=== PATIENT | male | born 1940 | race Caucasian/White ===

== ENCOUNTER 2018-07-21 06:35 | Observation (INO) ==
[~2018-07-21 06:35] MED LIST: CLINDAMYCIN 600 MG/54 ML BAG IV SCH; LR 15ML/HR IV SCH
[2018-07-21] MEDS ORDERED: BACITRACIN INJ 50,000 UNIT VIAL ONE (07:07)
[2018-07-21] MEDS ORDERED: LIDOCAINE HCL 1% 20 ML VIAL ONE (07:07)
[2018-07-21] MEDS ORDERED: BUPIVACAINE 0.25% 30 ML VIAL ONE (07:07)
[2018-07-21] MEDS ORDERED: fentaNYL citrate 100 MCG/2 ML VIAL ONE (07:49)
[2018-07-21] MEDS ORDERED: MIDAZOLAM HCL 5 MG/ML 1 ML VIAL ONE (07:50)
--- NOTE | 2018-07-21 07:57 | History & Physical Bridge Note ---
Date of Service July 21, 2018 History & Physical Bridge Note I have examined the patient, reviewed the History & Physical and in the interval since the performance of the History & Physical I have noted the following changes of clinical significance: no changes noted
--- NOTE | 2018-07-21 07:58 | Pre Anesthesia Assessment ---
Date of Service July 21, 2018 Pre Sedation Assessment Vital Signs Temp Pulse Resp Pulse Ox 07/21/18 07:42 36.6 C 45 L 16 98 Cardiovascular + bradycardic Respiratory normal respiratory effort, lungs clear to auscultation Pre-Sedation Airway Assessment Smoking Status: Never smoker Short, Thick Neck: No Thyromental Distance: > or= 3.5 Finger Breadths Oral Cavity: + WNL Mallampati Class: III ASA: ASA3 NPO Status Date of Last Intake of Fluids: 07/20/18 Time of Last Intake of Fluids: 19:00 Date of Last Intake of Solid Food: 07/20/18 Time of Last Intake of Solid Foods: 19:00 Procedure Planning Contraindications for Sedation: none Current Medications Reviewed: Yes Notes The planned sedation has been discussed with the patient. Informed Consent was obtained. I have identified the patient, determined the appropriateness of sedation and have assessed the patient immediately prior to the procedure. All medicine(s) and interventions are by my order.
[2018-07-21] MEDS ORDERED: ACETAMINOPHEN 325 MG TAB PO PRN (09:16)
[2018-07-21] MEDS ORDERED: ACETAMINOPHEN W/CODEINE #3 1 TAB PO PRN (09:16)
--- NOTE | 2018-07-21 09:16 | Post Anesthesia Assessment ---
Date of Service July 21, 2018 Post Sedation Assessment Vital Signs Temp Pulse Resp Pulse Ox 07/21/18 07:42 36.6 C 45 L 16 98 Recovery Score Activity: Moves 4 extremities Respiration: Deep Breath/Cough Circulation: +/-20% PreAnes Value Consciousness: Fully Awake Oxygen Saturation: > 92% On Room Air Discharge Sedation Level of Care: Fast Track Phase II Post Sedation Plan On clinical assessment, the patient appears to have tolerated the sedation without complications. Patient is recovering as anticipated. Patient will continue to be monitored by nursing and may be discharged when sedation discharge criteria are met per below protocol. Upon Completions of procedure and additional 15 minutes continue every 5 minute vital signs and the P.A.R. score; then discharge to a Phase I or Fast Track to Phase II per the following guidelines: * Discharge Patient to appropriate Phase II area if PAR is 8 or greater or return to pre- procedure baseline. The post - procedure orders will be as directed. * If PAR score is less than 8 or not return to pre-procedure baseline then patient will follow Phase I monitoring till PAR is reached for Phase II. The Phase I may be done in procedure room or may call to secure a Phase I area. * If naloxone or flumazenil are used for reversal, hold in Phase I for continued monitoring from when last reversal dose was given for a minimum of 60 minutes or longer pending the nurse and/or physician discretion of patient condition before discharge to Phase II. Please call the Sedation Physician to re-evaluate and complete post-note for discharge to Phase II area. Do NOT discharge from procedure sedation or Phase 1 until post- sedation evaluation note is complete by procedure /sedation MD Sedation Discharge Instructions to be given to the patient at discharge to home.
--- NOTE | 2018-07-21 09:16 | Operative Report ---
Post Operative Report Pre & Post Diagnosis AF with SVR and SND Operation Date: 07/21/18 08:00 <No data on this case meets the specified criteria> Procedure Operation Date: 07/21/18 08:00 Actual Procedures p Pacer with Ventricular Lead - Quin Yanes DO Surgeon Quin Yanes, Broom Stitcher none Estimated Blood Loss 10 Findings Consistent with Post-Op Diagnosis Specimens none Description of Procedure see official report I attest to the content of the Intraoperative Record and any orders documented therein. Any exceptions are noted below.
--- NOTE | 2018-07-21 09:28 | Discharge Summary ---
Date of Service July 21, 2018 Admission HPI pt admitted for elective ppm due to AF with SVR and fatigue and SOB Admission Exam Per Admitting Provider aaox3, NAD NC/AT, EOMI Supple No JVD irregular irregular S1/S2, + murmur CTA b/l no w/r/r soft nt/nd no LE edema b/l skin intact no focal deficits l Principal Diagnosis Principal Diagnosis SND and AF with SVR Discharge Exam aaox3, NAD NC/AT, EOMI Supple No JVD Nrl S1/S2, No murmur CTA b/l no w/r/r soft nt/nd no LE edema b/l skin intact no focal deficits left pectoral incision intact, no hematoma mild ecchymosis Discharge Data Allergies Allergy/AdvReac Type Severity Reaction Status Date / Time Penicillins Allergy Unknown RASH Unverified 10/15/17 14:42 Procedures Performed Operation Date: 07/21/18 08:00 Actual Procedures p Pacer with Ventricular Lead - Quin Yanes DO Ordered Studies 07/21/18 06:45 EP Lab Images for PACS ONCE Hospital Course (1) Sinus node dysfunction: Total Time Total Time Spent Total Time Spent (In Minutes): 30 Total Time Includes: Examination of the Patient, Discharge Planning, Medication Reconciliation and Other Discharge Plan Discharge Items Patient Disposition: Home - Self-Care Reason For Visit: PACEMAKER INSERTION Discharge Diagnosis: snd and AF with SVR s/p ppm Condition: Good Discharge Goals: Improve function Activity: As commented below Activity Comment: do not lift the left elbow over the left shoulder Lifting: No more than 10 pounds Lifting Comment: do not lift more than 10 pounds with the left arm for 2 weeks Bathing: May shower/bathe in 3 days Driving/Machine Use: Resume 1 day after discharge Non-emergency contact: Therapist Respiratory Call non-emergency contact if: you have any medication questions Follow-up/Referrals: William Arreola [Primary Care Provider] - Diet: Heart Healthy Add Provider Instructions: device and wound check [facility] at [facility] Prescriptions: Continued Acetaminophen Tab (TYLENOL) 325 MG tablet 325 mg PO Qty: 0 RF: 0 Amlodipine (Norvasc) 2.5 MG tablet 2.5 mg PO DAILY Qty: 0 RF: 0 GARLIC 10 MG capsule Qty: 0 RF: 0 Multivitamin tablet 1 tab PO DAILY Qty: 0 RF: 0 Potassium Chloride (Klor-Con Ext Rel) 8 MEQ CYGGP-DXZ-CAC 8 meq PO DAILY Qty: 0 RF: 0 Triamterene/Hctz (Dyazide 37.5MG/25MG) capsule 1 cap PO DAILY 30 Days Qty: 30 RF: 3 WARFARIN SODIUM (COUMADIN) 5 MG tablet 1 tab PO DAILY 90 Days Qty: 90 RF: 1 Stand-Alone Forms: [facility] Discharge Orders: Discharge Order (Routine); Ordered 07/22/18 Ordered By: Quin Yanes Admission Data Admit Date/Time: 07/21/18 09:16 Attending Provider: Quin Yanes Admit Provider: Quin Yanes Primary Care Provider: William Arreola Service: Telemetry
--- NOTE | 2018-07-21 14:40 | Operative Report ---
DATE OF OPERATION: 07/21/2018 PREOPERATIVE DIAGNOSES: Sinus node dysfunction and permanent 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 with slow ventricular response. POSTOPERATIVE DIAGNOSES: Sinus node dysfunction and permanent 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 with slow ventricular response. PROCEDURE: Single chamber rate responsive permanent pacemaker under fluoroscopic guidance. SURGEON: Quin Yanes DO. KETTLE OPERATOR HEAD: None. ANESTHESIA: Monitored conscious sedation administered under my supervision by Zach Whitfield. Start time 8:21, end time 8:32. Total of 3 mg of Versed and 75 mcg fentanyl. IV FLUIDS: 100 mL. ANTIBIOTICS: 600 mg of clindamycin. BLOOD LOSS: Less than 10 mL. URINE OUTPUT: Not applicable. SPECIMENS: None. FINDINGS: See below. DRAINS: None. INDICATIONS: This is a 77-year-old gentleman with past medical history for permanent 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 since 2017. CHADS2-VASc score of 3. He is on Coumadin, but no AV karla blockers, hypertension, chronic kidney disease stage III, hyperlipidemia, enlarged aorta, aortic valve sclerosis, obstructive sleep apnea on CPAP. On most recent Zio patch, he was found to have permanent 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 with slow ventricular response and sinus node dysfunction, so he is recommended a single chamber pacemaker. CONSENT: Consent was obtained prior to the patient going into Electrophysiology Lab. The patient was informed of the risks, benefits and alternatives of the procedure. Risks include but not limited to sudden cardiac , cardiac arrhythmias, cerebrovascular accident, myocardial infarction, injury to the blood vessels, chamber of the heart, lung, bleeding and infection. The patient understood these risks and agreed to the procedure as planned. Informed consent was obtained. DESCRIPTION OF THE PROCEDURE: The patient was brought into the Electrophysiology Lab in fasting state. He was connected to continuous shelter monitor. A timeout was performed to ensure the patient's identity and procedure correctly. The patient was prepped and draped over the left infraclavicular space in normal surgical standard fashion. Moderate conscious sedation was given throughout the procedure for the patient's comfort level. [place] precautions maintained throughout the procedure. A 10 mL of 1% lidocaine/bupivacaine mixture were given in the left deltopectoral groove. Incision was made in left deltopectoral groove. Blunt dissection was performed down to identify the cephalic vein. Cephalic vein was identified and isolated using 0 silk ties. The vein was nicked with an 11 blade and a guidewire was inserted without any resistance. The 8-[place] sheath was inserted over the guidewire without any resistance. Guidewire and dilator removed. The right ventricular pacing lead was then advanced into right ventricle and positioned in ventricular apex under fluoroscopic guidance. The initial spots before we screwed in did show some ventricular ectopies, so we repositioned it. There was adequate pacing and sensing thresholds and no diaphragmatic stimulation at high output pacing. The 8-[place] sheath was peeled away and lead was fixated to pectoralis muscle using 0 silk suture. A pacemaker pocket was created using blunt dissection over the pectoralis muscle within the pectoralis fascia. Pocket was flushed with copious amounts of bacitracin saline wash and inspected for hemostasis. Pulse generator was placed in the pocket, making sure that the leads were lying flat beneath the device. A stay stitch using 0 silk suture was used to secure the device to the pectoralis muscle. The incision was then closed in a 3-layer fashion using 2-0 Vicryl interrupted suture followed by 3-0 Vicryl interrupted suture followed by 4-0 Monocryl running stitch and Dermabond was applied. EQUIPMENT: 1. Pulse generator is a Medtronic Northwest XT SR MRI SureScan [id number], serial number [id number]. 2. Right ventricular lead, Medtronic 5076-58 cm, serial number [id number]. INTRAOPERATIVE TESTING: Right ventricular lead R waves 4.2 millivolts, impedance 730 ohms, threshold 0.3 volts at 0.3 milliamps. FINAL MEASUREMENTS THROUGH THE DEVICE: Right ventricular lead R waves 3.3 millivolts, impedance 589 ohms, threshold 0.5 volts at 0.4 milliseconds. FINAL PARAMETERS: VVIR 60/130. Right ventricular amplitude 3.5 volts, pulse width 0.4 milliseconds, sensitivity 0.3 millivolts. IMPRESSION: Successful implantation of single chamber rate responsive permanent pacemaker under fluoroscopic guidance secondary to sinus node dysfunction and permanent 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 with slow ventricular response. PLAN: Monitor the patient overnight, 12-lead ECG, chest x-ray. He is not allowed to lift the left elbow over left shoulder for 1 month. He cannot lift more than 10 pounds with the left arm for 2 weeks. He can shower in 2 days, let water run over the incision, do not scrub it. He should follow up in our [facility] office for device and wound check on 07/31/2018 and he can continue his current home medications. I attest to the content of the Intraoperative Record and any orders documented therein. Any exception s are noted below.
[2018-07-21] MEDS ORDERED: WARFARIN SOD 2.5 MG TAB PO SCH (16:00)
[2018-07-22 03:21] VITALS: BP 149/81; PULSE 61; TEMP 98.1; O2SAT 97
--- NOTE | 2018-07-22 07:25 | XRay Report ---
TWO VIEW CHEST CLINICAL HISTORY: Status post pacemaker implantation. FINDINGS: PA and lateral chest radiographs are obtained. No prior studies are available for compariso n at the time of dictation. A single lead cardiac pacemaker has been placed. The lead projects over t he ventricles. The heart is enlarged and there is atherosclerotic calcification of the thoracic aorta . The pulmonary vasculature is noncongested. Enlargement of the central pulmonary arteries suggests p ulmonary artery hypertension. Nonspecific interstitial thickening is likely chronic. There is bibasil ar atelectasis. No airspace consolidation or pleural effusion is identified. There is no pneumothorax . The skeletal structures are osteopenic. Degenerative change is noted in the shoulders and thoracic spine. The bony thorax appears intact. IMPRESSION: 1. A single lead cardiac pacemaker has been placed as above. 2. No pneumothorax is seen post procedure. 3. Cardiomegaly without radiographic evidence of congestive failure. Electronically signed by: Navin Castillo M.D. 07/22/2018 7:24 AM
[2018-07-22] MEDS ORDERED: TRIAMTERENE/HCTZ 37.5/25MG CAP PO SCH (09:00)
[2018-07-22] MEDS ORDERED: MULTIVITAMIN TAB PO SCH (09:00)
[2018-07-22] MEDS ORDERED: AMLODIPINE BESYLATE 5 MG TAB PO SCH (09:00)
[2018-07-24] MEDS ORDERED: WARFARIN SOD 5 MG TAB PO SCH (16:00)
== END 2018-07-22 09:20 | disposition home or self-care (01) ==
LOC: 2E 06:35 → ASU 06:35

== ENCOUNTER 2019-12-21 08:02 | Observation (INO) ==
--- NOTE | 2019-11-26 16:00 | PAT Medication Instructions ---
Medication Instructions Date of Service November 26, 2019 Home Medications acetaminophen [Tylenol Extra Strength] 500 mg PO 4XWK PRN amlodipine 10 mg PO QAM chlorthalidone 25 mg PO QAM losartan 25 mg PO QAM multivitamin 1 tab PO QAM potassium chloride 8 meq PO QAM warfarin 2.5 mg PO UD mupirocin 1 applic TOPICAL BID vitamins A,C,O-ahsr-omcjhr [PreserVision AREDS] 1 tab PO DAILY ASK your prescriber and surgeon warfarin 2.5 mg PO UD STOP taking 2 weeks before surgery (or as soon as possible if surgery is within 2 weeks) vitamins A,C,P-gpda-cfypfe [PreserVision AREDS] 1 tab PO DAILY STOP taking 24 hours before surgery mupirocin 1 applic TOPICAL BID DO NOT take the morning of surgery chlorthalidone 25 mg PO QAM losartan 25 mg PO QAM multivitamin 1 tab PO QAM potassium chloride 8 meq PO QAM Take morning of surgery With a small sip of water, OTHERWISE NOTHING TO EAT OR DRINK AFTER MIDNIGHT: acetaminophen [Tylenol Extra Strength] 500 mg PO 4XWK PRN (okay to take up to 4 hours prior to surgery if needed) amlodipine 10 mg PO QAM Take evening before surgery acetaminophen [Tylenol Extra Strength] 500 mg PO 4XWK PRN (if needed) Other Notes If you have any questions please call us at [phone] or [phone] or [phone] or [phone]
--- NOTE | 2019-11-30 08:54 | Anesthesiology Consultation ---
Date of Service November 30, 2019 Assessment & Plan (1) Encounter for pre-operative examination: Per PAT assessment on 11/29: Travel screen- Travel to [facility] (for camping/no contact with others). No known COVID-19 positive contacts. No current COVID-19 related symptoms. COVID testing done before back injection one month ago which was negative per patient. Per patient, surgeon arranging preop COVID testing. Awaiting results. - Cardiology office visit: 08/30/19: "Patient is doing well and will continue his current medications." - Check coags AM DOS Chart Review Chart Review: Acceptable Risk for Surgery (pending surgeon-ordered PCP clearance (Dr. Arreola/[facility])) and Patient seen in Pre Admission Testing Teaching & Discussion Pre-Anesthesia Teaching/Discussion Notes: Instructed NPO after midnight before surgery,except medications with 15 cc of water. Medication instructions provided according to the PAT guidelines. History Surgery Operation Date: 12/21/19 07:00 Proposed Procedures p Left Total Knee Arthroplasty - Greg Lester MD Height/Weight Height: 5 ft 8 in Weight: 92.2 kg Allergies Allergy/AdvReac Type Severity Reaction Status Date / Time Penicillins Allergy Unknown RASH Verified 11/23/19 11:01 Medications Home Medications Medication Instructions Recorded Confirmed Last Taken acetaminophen [Tylenol Extra 500 mg PO 4XWK PRN 04/23/19 11/23/19 10/18/19 07:44 Strength] amlodipine 10 mg PO QAM 04/23/19 11/23/19 10/18/19 07:44 chlorthalidone 25 mg PO QAM 04/23/19 11/23/19 10/18/19 07:44 losartan 25 mg PO QAM 04/23/19 11/23/19 10/18/19 07:44 multivitamin 1 tab PO QAM 04/23/19 11/23/19 10/18/19 07:44 potassium chloride 8 meq PO QAM 04/23/19 11/23/19 10/18/19 07:44 warfarin 2.5 mg PO UD 04/23/19 11/23/19 05/16/19 mupirocin 1 applic TOPICAL BID 11/23/19 11/23/19 Unknown vitamins A,C,K-igih-ffdtoo 1 tab PO DAILY 11/23/19 11/23/19 Unknown [PreserVision AREDS] Past Medical History Medical History (Updated 11/30/19 @ 09:10 by Lisa Abad) Atrial fibrillation paroxysmal Borderline high cholesterol Chronic back pain CKD (chronic kidney disease) stage III Hypertension Lumbar spinal stenosis Osteoarthritis Pacemaker Implanted 07/2018 ([place]) for tachy-pat syndrome/sinus node dysfunction, Medtronic, last check 09/2019 ([facility]) Sleep apnea CPAP Exercise / Class Metabolic Activity III < 4 Walking/Shop/Light housework Past Family History Family History Brother Throat cancer Family history of diabetes mellitus Sister Family history of diabetes mellitus Other No family history of adverse response to anesthesia Past Surgical History Surgical History History of colonoscopy History of prostatectomy DUE TO ENLARGEMENT S/P cardiac pacemaker procedure [facility] 2018 S/P epidural steroid injection caudal S/P repair of hydrocele Past Anesthesia History No Hx of Anesthesia Complications and No Family Hx of Anesthesia Complications History of PONV No Hx of PONV and No Hx of Motion Sickness Social History Smoking Status: Former smoker tobacco type: cigarettes Do You Dip or Chew Tobacco: No Smoking End Date: Light use as teenager Hx Alcohol Use: Yes Alcohol type: beer alcohol intake frequency: a few times a week Hx Substance Use: No substance use type: does not use Review of Systems Patient denies chest pain, shortness of breath, fever, chills, cough, wheezing, palpitations. Physical Exam Vital Signs VITALS BP 150/68 P 60 TEMP 98.4 SP02 98%RA RESP 18 PHYSICAL Full neck and c-spine range of motion. Full TMJ range of motion. TMD 2.5 finger breaths Mallampati Score 3 Dentition: missing teeth including upper side teeth Lungs: clear throughout to auscultation Cardiac: regular rate and rhythm, no murmurs noted Spine: normal Carotid arteries: negative bruit Extremities: no edema Testing Laboratory Results 11/30/19 09:10 11/30/19 09:10 PT 18.7 Seconds (9.0-12.0) H 11/30/19 09:10 INR 1.8 (0.9-1.1) H 11/30/19 09:10 APTT 39.3 Seconds (21.0-31.0) H 11/30/19 09:10 Blood Type O Positive 11/30/19 09:10 Antibody Screen NEGATIVE 11/30/19 09:10 Electrocardiogram Date: 11/30/19 V-paced rhythm at 62bpm. Chest X-Ray Date: 06/09/19 Findings: + NAD Echocardiogram Date: 07/15/19 EF 58%. No RWMA. Moderate LAE. PASP 25-30mmhg. Moderate aortic sclerosis. Other Testing Pacer check: 09/24/19: Medtronic. No alerts. RV paced presenting rhythm. RV 98%. More VVIR. 13.6 years battery longevity. "Normal dual chamber pacemaker function."
[2019-11-30 10:17] LABS: Basophils # (auto) 0.02 K/uL (0-0.2); Basophils % (auto) 0.3 %; Eosinophils # (auto) 0.07 K/uL (0-0.5); Eosinophils % (auto) 0.9 %; Hematocrit (blood only) 40.2 % (42-52); Hemoglobin 13.7 g/dL (14.0-18.0); Immature Granulocytes # (auto) 0.02 K/uL (0.00-0.02); Immature Granulocytes % (auto) 0.3 %; Lymphocytes # (auto) 1.54 K/uL (1.2-3.4); Lymphocytes % (auto) 19.3 %; Mean Corpuscular Hemoglobin 30.6 pg (25-34); Mean Corpuscular Hgb Conc 34.1 g/dL (32-36); Mean Corpuscular Volume 89.9 fL (80-100); Mean Platelet Volume 10.6 fL (7.4-10.4); Monocytes # (auto) 0.94 K/uL (0.11-0.59); Monocytes % (auto) 11.8 %; Neutrophils # (auto) 5.39 K/uL (1.4-6.5); Neutrophils % (auto) 67.4 %; Platelet Count 236 K/uL (130-400); RDW Coefficient of Variation 13.7 % (11.5-14.5); Red Blood Count 4.47 M/uL (4.7-6.1); White Blood Count 7.98 K/uL (4.8-10.8)
[2019-11-30 10:26] LABS: BUN Creatinine Ratio 20.2 (10-20); Calcium 9.1 mg/dl (8.5-10.1); Creatinine Clr Calc Pharmacy 45.8 ml/min; Est GFR (African American) 53.2; Est GFR (Non-African American) 45.9; Potassium 3.5 mmol/L (3.5-5.1)
[2019-11-30 10:37] LABS: INR 1.8 (0.9-1.1); Partial Thromboplastin Ratio 1.4; Partial Thromboplastin Time 39.3 Seconds (21.0-31.0); Prothrombin Time 18.7 Seconds (9.0-12.0)
--- NOTE | 2019-11-30 13:40 | Electrocardiogram Report ---
Test Reason : Blood Pressure : / mmHG Vent. Rate : 062 BPM Atrial Rate : 063 BPM P-R Int : 000 ms QRS Dur : 152 ms QT Int : 458 ms P-R-T Axes : 000 -70 076 degrees QTc Int : 464 ms Ventricular-paced rhythm Abnormal ECG When compared with ECG of 21-JUL-2018 09:47, Vent. rate has increased BY 2 BPM Confirmed by George Tellez ([id number]) on 11/30/2019 1:40:19 PM Referred By: Greg Lester Confirmed By:George Tellez
[~2019-12-21 08:02] MED LIST changes: +*ANCEF*ALLERGY NOTED TO ORDERED MEDICATION SCH; +ACETAMINOPHEN 500 MG TAB PO SCH; +BUPIVACAINE 0.25% 30 ML VIAL ONE; +BUPIVACAINE 0.5 % 5 MG/1 ML PF 10ML VIAL ONE; +CEFAZOLIN 2000MG 2,000 MG/15 ML SYR IV SCH; -CLINDAMYCIN 600 MG/54 ML BAG IV SCH; +CeleBREX 200 MG CAP PO SCH; +GABAPENTIN 300 MG CAP PO SCH; -LR 15ML/HR IV SCH; +LR 500ML BOLUS, THEN 15ML/HR IV SCH; +LR 60ML/HR IV SCH; +OXYCODONE HCL 10 MG TABCR (OXYCONTIN) PO SCH; +ROPIVACAINE 0.5% HCL/PF 150 MG, BUPIVACAINE 0.5% MPF 30 ML, EPINEPHrine 0.15 MG, Ketoro... INFIL SCH; +TRAMADOL HCL 50 MG TABLET PO SCH; +TRANEXAMIC ACID 1,000 MG **IV Intra-op IV SCH; +TRANEXAMIC ACID 1,000 MG **IV Pre-op IV SCH; +cloNIDine HCL 0.1 MG/24 HR TRANSDERM SYS TD SCH; +dexAMETHasone 4 MG TAB PO SCH
[2019-12-21 09:03] LABS: INR 1.2 (0.9-1.1); Partial Thromboplastin Ratio 1.1; Partial Thromboplastin Time 29.6 Seconds (21.0-31.0); Prothrombin Time 12.1 Seconds (9.0-12.0)
[2019-12-21] MEDS ORDERED: MIDAZOLAM HCL 1 MG/ML 2ML VIAL ONE (09:25)
[2019-12-21] MEDS ORDERED: ONDANSETRON INJ 2 MG/ML 2 ML VIAL IV PRN ×2 (10:40→14:57)
[2019-12-21] MEDS ORDERED: fentaNYL citrate 100 MCG/2 ML VIAL IV PRN (10:40)
[2019-12-21] MEDS ORDERED: ATROPINE SULFATE 0.1 MG/ML 10ML SYR IV PRN (10:40)
[2019-12-21] MEDS ORDERED: ePHEDrine sulfate 50 MG/ML AMP IV PRN (10:40)
--- NOTE | 2019-12-21 10:47 | History & Physical Bridge Note ---
Date of Service December 21, 2019 History & Physical Bridge Note I have examined the patient, reviewed the History & Physical and in the interval since the performance of the History & Physical I have noted the following changes of clinical significance: no changes noted
[2019-12-21] MEDS ORDERED: BACITRACIN INJ 50,000 UNIT VIAL ONE (11:04)
[2019-12-21] MEDS ORDERED: ORTHO JOINT ANESTHETIC ONE (11:04)
[2019-12-21] MEDS ORDERED: PROPOFOL IV EMULSION 10 MG/ML 20 ML VIAL IV ONE (13:26)
[2019-12-21] MEDS ORDERED: LIDOCAINE HCL 2% 2 ML VIAL/AMP(20MG/ML) INFIL ONE (13:26)
[2019-12-21] MEDS ORDERED: ePHEDrine sulfate 50 MG/ML AMP ONE (13:42)
--- NOTE | 2019-12-21 13:54 | Operative Report ---
Post Operative Report Pre & Post Diagnosis Operation Date: 12/21/19 10:00 Pre-Op Diagnosis: Left Knee Arthritis Post-Op Diagnosis: Left Knee Arthritis I identified the patient and participated in the time-out.: Yes Procedure Operation Date: 12/21/19 10:00 Actual Procedures p Left Total Knee Arthroplasty(Left) - Greg eLster MD Surgeon Greg Lester MD Fire Support Man Mirna Tatum physicians kindergarten teacher assistant. There is no qualified resident or fellow available. Rod Angel student Estimated Blood Loss 5 Findings Consistent with Post-Op Diagnosis Specimens Resected bone and soft tissue Drains None Anesthesia Type MAC Spinal Regional Complications none Disposition Accompanied Patient To Recovery: No Disposition: Recovery Room Indications Fletcher is 79. Left knee arthritis refractory to nonsurgical methods of management. He is elected to proceed with operative intervention. Description of Procedure Informed consent obtained. Patient identified. He identified the operative site as the left knee. I marked with my initials. A preop surgical timeout was performed. Preop dose of IV antibiotics given. He was taken to the operating room positioned supine on the OR table the anesthetic was administered. A tourniquet was applied to the left thigh. Bump under the left calf. Bump under the left hip. The leg was prepped and draped in usual sterile fashion. DVT prophylaxis with foot pumps. Postoperatively early mobility Coumadin and Lovenox. He is on chronic Coumadin. The exam under anesthesia revealed range of motion 0/10/1 10-115. Varus alignment. Limb exsanguinated with the Esmarch. Tourniquet inflated to 250 mmHg. A 20 cm midline incision was made followed by medial parapatellar arthrotomy. An extensile medial release was performed. Severe osteophytes were noted in the medial compartment with [id number] arthritis and a very damaged medial meniscus. There was bony eburnation and complete loss of cartilage. The central trochlea was devoid of cartilage. The lateral compartment was relatively normal with an intact meniscus. There were grade 2 and 3 changes of the patella. Retropatellar fat pad resected. Soft tissue on the anterior aspect the distal femur resected. Synovial reflection in the lateral gutter resected. Marginal osteophytes around the patella were removed along with soft tissue. The knee was able to be easily flexed and the patella everted. The cruciate ligaments were intact and they were resected. The tibia was then subluxated and the remnants of the menisci were removed. A pilot safety inspector hole was drilled into the proximal tibia between the spines and just in front of them. Intramedullary alignment madyson was inserted. 0 degree cutting blo ck. Aligned to the tibial tubercle. 10 mm off the high side and 2 mm off the medial side. Alignment checked with the extra medullary madyson and found to be appropriate. This cut was then made recut and finished off with a rongeur and and rasp. Sized to a 4. Attention turned to the femur. Venereal Disease Control Head hole just above the PCL followed by insertion of the distal femoral cutting guide 6 degrees valgus 14 mm thick cut. This cut was made and the extension gap was a symmetric 10. Epicondylar axis marked out and the distal femoral sizing guide was applied. Between 4 and a 5. It was pinned for a 5 and a 4 block was applied. The cuts were then made protecting the collateral ligaments. Box cutting guide applied and lateralized neck cut was made. Osteophytes in the back of the knee were then removed. Trial was inserted. The tibia was prepared with a size 4 tray which was lateralized and the keel was drilled and punched. Trialing with a 10 and then a 12.5 mm thick insert revealed better stability full extension with the 12 5 and trace laxity mid position MCL 1+ laxity LCL and no laxity at 90. Attention was turned to the patella which measured 26 mm in thickness. The 38 patella was selected. The guide was set to preserve 15 mm of bone. The cut was made the paddle was aligned and the lug holes were drilled. Patellar tracking was fine with no hands technique. Composite patellar thickness was 26 mm at the end of the case. The trials were removed. Canals plugged. Ortho joint mix injected and the knee was pulsatile lavage to prepare the bony surfaces. 2 bags of Simplex P cement were mixed and while in a doughy state femur tibia patella were cemented in place and held in extension until the cement hardened. Tourniquet let down at 95 minutes and meticulous hemostasis was performed with minimal bleeding. Back the knee was inspected for cement. Trialing again was performed and the 12.5 was appropriate. The final poly-was inserted. The extensor mechanism was closed with interrupted #2 FiberWire above the equator the patella and a running and interrupted #1 Vicryl below. The skin was closed in layers with 0 and 2-0 Vicryl. [place] assisted flexion with the extensor mechanism closed was approximately 115 degrees. Stable in full extension and at 90. Trace MCL at 30 and 1+ LCL at 30. Leg was cleaned with wet and dry sponges. Yinka on the skin. Xeroform 4 x 4's ABD full-length [place] wrap and knee immobilizer applied. Patient awakened from anesthesia without difficulty and taken to the recovery room in stable condition. The resected bone and soft tissue were sent for specimen. There were no complications. Counts were correct. Blood loss 5 cc. At the conclusion of the operation spoke to patient's informed of my findings and postop instructions were given. He will be rehabilitated according to the standard total knee rehab protocol. He will begin his Coumadin tonight and Lovenox for bridging tomorrow. Components inserted with a J[employer]J PFC Sigma rotating platform knee size 4 left posterior stabilized normal-sized femur and a size 4 mobile-bearing keeled tibial tray a 38 mm 3 peg oval dome patella and a size 12.5 mm thick size 4 polyethylene insert. I attest to the content of the Intraoperative Record and any orders documented therein. Any exceptions are noted below.
--- NOTE | 2019-12-21 14:05 | Operative Report ---
Post Operative Report Pre & Post Diagnosis Operation Date: 12/21/19 10:00 Pre-Op Diagnosis: Left Knee Arthritis Post-Op Diagnosis: Left Knee Arthritis I identified the patient and participated in the time-out.: Yes Procedure Operation Date: 12/21/19 10:00 Actual Procedures p Left Total Knee Arthroplasty(Left) - Greg Lester MD Surgeon Greg Lester MD Case Assistant Mirna Tatum physicians music library assistant. There is no qualified resident or fellow available. Rod Angel student Estimated Blood Loss 5 Findings Consistent with Post-Op Diagnosis Specimens bone and soft tissue Drains None Anesthesia Type MAC Spinal Regional Complications none Description of Procedure Patient was taken to the recovery room, placed under spinal anesthesia, given 2gm IV Ancef for surgical prophylaxis. Time out performed, prepped and draped in routine sterile fashion. I was present during the entire case, please see Dr. Lester's operative report for further detail. I assisted with positioning, exposure, tissue retraction, hardware trialing, implantation of hardware, closure and dressings. Patient was awakened and taken to the recovery room in stable condition. I attest to the content of the Intraoperative Record and any orders documented therein. Any exceptions are noted below.
--- NOTE | 2019-12-21 14:28 | XRay Report ---
LEFT KNEE 2 VIEWS History: Left total knee arthroplasty. Degenerative arthritis. Postop. FINDINGS: The patient is status post a left total knee arthroplasty. The hardware is intact. No fract ure or dislocation. Skin natanael are in place. IMPRESSION: Left total knee arthroplasty. No evidence for hardware complication. ACT 112: Negative or not required by law. Electronically signed by: Lenny Gonzalez M.D. 12/21/2019 2:27 PM
[2019-12-21] MEDS ORDERED: HYDROmorphone INJ 0.5 MG/0.5 ML SYR IV PRN (14:57)
[2019-12-21] MEDS ORDERED: SODIUM CHLORIDE 0.9% 1000ML 1,000 ML IV SCH (14:57)
[2019-12-21] MEDS ORDERED: TAMSULOSIN HCL 0.4 MG CAP PO PRN (14:57)
[2019-12-21] MEDS ORDERED: TRAMADOL HCL 50 MG TABLET PO PRN (14:57)
[2019-12-21] MEDS ORDERED: bisacodyL 10 MG SUPP PR PRN (14:57)
[2019-12-21] MEDS ORDERED: MAGNESIUM HYDROXIDE SUSP 30 ML UDC PO PRN (14:57)
[2019-12-21] MEDS ORDERED: OXYCODONE HCL IR 5 MG TAB (IMMEDIATE RELEASE) PO PRN (14:57)
[2019-12-21] MEDS ORDERED: NALOXONE HCL 0.4 MG/1 ML VIAL/CARP IV PRN (14:57)
[2019-12-21] MEDS ORDERED: HydrALAZINE HCL 20 MG/ML VIAL IV PRN (14:57)
[2019-12-21] MEDS ORDERED: METOCLOPRAMIDE HCL INJ 5 MG/ML 2 ML VIAL IV PRN (14:57)
[2019-12-21] MEDS: CHECK CLONIDINE PATCH PLACEMENT SCH ×2 (15:56→23:55)
[2019-12-21] MEDS: KETOROLAC TROMETHAMINE 15 MG/ML VIAL IV SCH ×2 (15:59→21:32)
[2019-12-21] MEDS ORDERED: WARFARIN SOD 7.5 MG TAB PO SCH (16:00)
--- NOTE | 2019-12-21 16:19 | Anesthesiology Progress Note ---
Date of Service December 21, 2019 Anesthesia Post Procedure Vital Signs Vital Signs: Temp Pulse Pulse Resp BP BP Pulse Ox 12/21/19 16:02 36.4 C L 60 19 130/69 95 12/21/19 15:06 36 C L 60 16 138/74 95 12/21/19 14:40 36.4 C L 63 18 131/71 93 12/21/19 14:20 36.5 C 60 18 124/68 93 12/21/19 14:10 60 18 118/65 93 12/21/19 14:00 60 18 121/67 92 12/21/19 13:54 36.4 C L 18 122/66 94 12/21/19 09:07 36.7 C 66 20 159/71 H 96 Pain Intensity Left Knee: Pain Intensity: 3 Transfer of Care Handoff Completed per policy Notes Mental Status: alert / awake / arousable and participated in evaluation Nausea / Vomiting: adequately controlled Pain: adequately controlled Airway Patency, RR, SpO2: stable & adequate BP & HR: stable & adequate Hydration State: stable & adequate Neuraxial Anesthesia: was administered and sensory block is resolving Anesthetic Complications: no major complications apparent and Pt Satisfied with anesthetic care
--- NOTE | 2019-12-21 17:48 | Orthopedic Progress Note ---
Date of Service December 21, 2019 Assessment & Plan (1) S/P total knee arthroplasty: POD 0 - left total knee arthroplasty PT/OT tomorrow Regular diet as ordered May be OOB as tolerated, knee immobilizer when out of bed Lovenox to start in Am for bridging, warfarin to start tonight. Will re-eval in AM Call our office with questions. Admission and Anticipated Discharge Date Admission Date: December 21, 2019 Subjective Patient doing well, no complaints of pain. Tolerating regular diet. Denies chest pain, shortness of breath, nausea or vomiting Physical Exam Physical Exam: Left knee dressings intact. Motor and sensation intact. Strength 5/5. Patient seen by Dr. Lester Results & Data ([facility]) Vital Signs (Past 12 Hours) Vital Signs Temp Pulse Pulse Resp BP BP Pulse Ox 12/21/19 16:43 35.8 C L 60 20 136/67 95 12/21/19 16:02 36.4 C L 60 19 130/69 95 12/21/19 15:06 36 C L 60 16 138/74 95 12/21/19 14:40 36.4 C L 63 18 131/71 93 12/21/19 14:20 36.5 C 60 18 124/68 93 12/21/19 14:10 60 18 118/65 93 12/21/19 14:00 60 18 121/67 92 12/21/19 13:54 36.4 C L 18 122/66 94 12/21/19 09:07 36.7 C 66 20 159/71 H 96 Diagnostic Findings LEFT KNEE 2 VIEWS History: Left total knee arthroplasty. Degenerative arthritis. Postop. FINDINGS: The patient is status post a left total knee arthroplasty. The hardware is intact. No fracture or dislocation. Skin natanael are in place. IMPRESSION: Left total knee arthroplasty. No evidence for hardware complication.
[2019-12-21] MEDS: CEFAZOLIN 2000MG 2,000 MG/15 ML SYR IV SCH (20:51)
[2019-12-21] MEDS: DOCUSATE SODIUM 100 MG CAP PO SCH (20:52)
[2019-12-21] MEDS ORDERED: SENNA 8.6 MG TAB PO SCH (21:00)
[2019-12-21] MEDS: ACETAMINOPHEN 500 MG TAB PO SCH (21:33)
[2019-12-22] MEDS: KETOROLAC TROMETHAMINE 15 MG/ML VIAL IV SCH ×2 (03:00→09:35)
[2019-12-22] MEDS: CEFAZOLIN 2000MG 2,000 MG/15 ML SYR IV SCH (03:00)
[2019-12-22] MEDS: ACETAMINOPHEN 500 MG TAB PO SCH ×2 (05:52→12:47)
[2019-12-22 06:02] LABS: Hematocrit (blood only) 36.6 % (42-52); Hemoglobin 12.4 g/dL (14.0-18.0); Mean Corpuscular Hemoglobin 30.6 pg (25-34); Mean Corpuscular Hgb Conc 33.9 g/dL (32-36); Mean Corpuscular Volume 90.4 fL (80-100); Mean Platelet Volume 10.7 fL (7.4-10.4); Platelet Count 203 K/uL (130-400); RDW Coefficient of Variation 13.6 % (11.5-14.5); RDW Standard Deviation 45.1 fL (36.4-46.3); Red Blood Count 4.05 M/uL (4.7-6.1); White Blood Count 16.89 K/uL (4.8-10.8)
[2019-12-22 06:11] LABS: INR 1.2 (0.9-1.1); Prothrombin Time 12.9 Seconds (9.0-12.0)
[2019-12-22 06:30] LABS: BUN Creatinine Ratio 19.7 (10-20); Creatinine Clr Calc Pharmacy 35.4 ml/min; Est GFR (Non-African American) 34.5; Potassium 3.6 mmol/L (3.5-5.1)
[2019-12-22] MEDS ORDERED: dexAMETHasone 4 MG TAB PO SCH (08:00)
[2019-12-22] MEDS: DOCUSATE SODIUM 100 MG CAP PO SCH (08:31)
[2019-12-22] MEDS ORDERED: ENOXAPARIN INJ 30 MG/0.3 ML SYR SQ SCH (09:00)
[2019-12-22] MEDS ORDERED: CHLORTHALIDONE 25 MG TAB PO SCH (09:00)
[2019-12-22] MEDS ORDERED: CEROVITE ADV FORMULA TAB PO SCH (09:00)
[2019-12-22] MEDS ORDERED: AMLODIPINE BESYLATE 5 MG TAB PO SCH (09:00)
[2019-12-22] MEDS ORDERED: LOSARTAN POTASSIUM 25 MG TAB PO SCH (09:00)
[2019-12-22] MEDS ORDERED: MULTIVITAMIN TAB PO SCH (09:00)
[2019-12-22] MEDS ORDERED: POTASSIUM CHLORIDE 10 MEQ TABCR PO SCH (09:00)
--- NOTE | 2019-12-22 11:50 | Medical Student Progress Note ---
Date of Service December 22, 2019 Assessment & Plan (1) S/P total knee arthroplasty: Admission and Anticipated Discharge Date Admission Date: December 21, 2019 Anticipate discharge 12/22/2019 (today) Stable POD 1. Plan for discharge today with home health nursing in place. WBAT. Do not exceed 90 degrees of flexion. Continue therapy exercises. PT/OT following. INR 1.2. Bridge to preoperative coumadin levels with Lovenox - continue until in therapeutic range. Check INR next week or per [facility]. Follows with [facility]. Elevate the limb above the level of the heart. Ice as needed for pain and swelling relief. Continue scheduled Tylenol and PRN Oxycodone and Tramadol as well as stool softener. Plan dressing changes with home health. F/u as scheduled. Subjective Patient doing well, resting comfortably in bed. Pain is well controlled - 2/10 with minimal usage of pain medications. Urinating and passing flatus. Tolerating regular diet. Denies chest pain, calf pain, shortness of breath, nausea or vomiting. Desires discharge to home with home nursing care. Review of Systems Review of Systems: All systems reviewed & are unremarkable except as noted in HPI & below Physical Exam Constitutional: WD/WN, vitals as above well nourished Eyes: PERRL, conjunctivae normal, anicteric sclerae ENMT: external ear and nose normal, oropharynx normal Neck: normal visual inspection and trachea midline Respiratory: normal respiratory effort and able to speak in complete sentences; no respiratory distress, no labored breathing, no retractions, does not use accessory muscles, no cough and not tachypneic Cardiovascular: RRR, no murmur, no edema Vessels: posterior tibial pulses present and dorsalis pedis pulses present Extremities: normal capillary refill; no calf tenderness, no pedal edema and no edema Gastrointestinal (Abdomen): Inspection/Auscultation: abdomen not distended Percussion/Palpation: abdomen soft; abdomen nontender, no guarding and no hepatosplenomegaly Musculoskeletal: no cyanosis or clubbing, extremities motor strength 5/5 Extremities: + limited ROM of lower extremity Left (Status post TKA) Left knee is immobilized s/p TKA on 12/20. ROM 88 degrees of flexion per PT 8/12 AM. Strength is 5/5 at the ankle in all planes of motion. Skin: no rashes, warm and dry Neurologic: normal touch/pain/proprioception Motor/Sensory: no sensory deficit Results & Data ([facility]) Vital Signs (Past 12 Hours) Vital Signs Temp Pulse Resp BP BP Pulse Ox 12/22/19 07:06 36.6 C 72 16 157/72 H 96 12/22/19 02:50 36.5 C 64 16 138/71 92 12/21/19 23:44 36.5 C 60 16 147/67 H 93 Laboratory Results Lab Results 11/30/19 11/30/19 11/30/19 Range/Units 09:10 09:10 09:10 WBC 7.98 (4.8-10.8) K/uL RBC 4.47 L (4.7-6.1) M/uL Hgb 13.7 L (14.0-18.0) g/dL Hct 40.2 L (42-52) % MCV 89.9 (80-100) fL MCH 30.6 (25-34) pg MCHC 34.1 (32-36) g/dL RDW Std Deviation 45.0 (36.4-46.3) fL RDW Coeff of Ana Maria 13.7 (11.5-14.5) % Plt Count 236 (130-400) K/uL MPV 10.6 H (7.4-10.4) fL Immature Gran % (Auto) 0.3 % Neut % (Auto) 67.4 % Lymph % (Auto) 19.3 % Alexander % (Auto) 11.8 % Eos % (Auto) 0.9 % Baso % (Auto) 0.3 % Neut # (Auto) 5.39 (1.4-6.5) K/uL Lymph # (Auto) 1.54 (1.2-3.4) K/uL [place] # (Auto) 0.94 H (0.11-0.59) K/uL Eos # (Auto) 0.07 (0-0.5) K/uL Baso # (Auto) 0.02 (0-0.2) K/uL Immature Gran # (Auto) 0.02 (0.00-0.02) K/uL PT (9.0-12.0) Seconds INR (0.9-1.1) APTT (21.0-31.0) Seconds PTT Ratio Sodium 139 (136-145) mmol/L Potassium 3.5 (3.5-5.1) mmol/L Chloride 103 (98-107) mmol/L Carbon Dioxide 29 (21-32) mmol/L Anion Gap 7.0 (3-11) BUN 29 H (7-18) mg/dl Creatinine 1.44 H (0.6-1.4) mg/dl Est Cr Clr Drug Dosing 45.8 ml/min Est GFR ( Amer) 53.2 Est GFR (Non-Af Amer) 45.9 BUN/Creatinine Ratio 20.2 H (10-20) Glucose 107 H (70-99) mg/dl Calcium 9.1 (8.5-10.1) mg/dl Blood Type O Positive Antibody Screen NEGATIVE 11/30/19 12/21/19 12/22/19 Range/Units 09:10 08:44 05:43 WBC 16.89 H (4.8-10.8) K/uL RBC 4.05 L (4.7-6.1) M/uL Hgb 12.4 L (14.0-18.0) g/dL Hct 36.6 L (42-52) % MCV 90.4 (80-100) fL MCH 30.6 (25-34) pg MCHC 33.9 (32-36) g/dL RDW Std Deviation 45.1 (36.4-46.3) fL RDW Coeff of Ana Maria 13.6 (11.5-14.5) % Plt Count 203 (130-400) K/uL MPV 10.7 H (7.4-10.4) fL Immature Gran % (Auto) % Neut % (Auto) % Lymph % (Auto) % [place] % (Auto) % Eos % (Auto) % Baso % (Auto) % Neut # (Auto) (1.4-6.5) K/uL Lymph # (Auto) (1.2-3.4) K/uL Alexander # (Auto) (0.11-0.59) K/uL Eos # (Auto) (0-0.5) K/uL Baso # (Auto) (0-0.2) K/uL Immature Gran # (Auto) (0.00-0.02) K/uL PT 18.7 H 12.1 H (9.0-12.0) Seconds INR 1.8 H 1.2 H (0.9-1.1) APTT 39.3 H 29.6 (21.0-31.0) Seconds PTT Ratio 1.4 1.1 Sodium (136-145) mmol/L Potassium (3.5-5.1) mmol/L Chloride (98-107) mmol/L Carbon Dioxide (21-32) mmol/L Anion Gap (3-11) BUN (7-18) mg/dl Creatinine (0.6-1.4) mg/dl Est Cr Clr Drug Dosing ml/min Est GFR ( Amer) Est GFR (Non-Af Amer) BUN/Creatinine Ratio (10-20) Glucose (70-99) mg/dl Calcium (8.5-10.1) mg/dl Blood Type Antibody Screen 12/22/19 12/22/19 Range/Units 05:43 05:43 WBC (4.8-10.8) K/uL RBC (4.7-6.1) M/uL Hgb (14.0-18.0) g/dL Hct (42-52) % MCV (80-100) fL MCH (25-34) pg MCHC (32-36) g/dL RDW Std Deviation (36.4-46.3) fL RDW Coeff of Ana Maria (11.5-14.5) % Plt Count (130-400) K/uL MPV (7.4-10.4) fL Immature Gran % (Auto) % Neut % (Auto) % Lymph % (Auto) % [place] % (Auto) % Eos % (Auto) % Baso % (Auto) % Neut # (Auto) (1.4-6.5) K/uL Lymph # (Auto) (1.2-3.4) K/uL [place] # (Auto) (0.11-0.59) K/uL Eos # (Auto) (0-0.5) K/uL Baso # (Auto) (0-0.2) K/uL Immature Gran # (Auto) (0.00-0.02) K/uL PT 12.9 H (9.0-12.0) Seconds INR 1.2 H (0.9-1.1) APTT (21.0-31.0) Seconds PTT Ratio Sodium 138 (136-145) mmol/L Potassium 3.6 (3.5-5.1) mmol/L Chloride 106 (98-107) mmol/L Carbon Dioxide 24 (21-32) mmol/L Anion Gap 8.0 (3-11) BUN 36 H (7-18) mg/dl Creatinine 1.81 H (0.6-1.4) mg/dl Est Cr Clr Drug Dosing 35.4 ml/min Est GFR ( Amer) 40.0 Est GFR (Non-Af Amer) 34.5 BUN/Creatinine Ratio 19.7 (10-20) Glucose 129 H (70-99) mg/dl Calcium 8.0 L (8.5-10.1) mg/dl Blood Type Antibody Screen
--- NOTE | 2019-12-22 12:00 | Orthopedic Progress Note ---
Date of Service December 22, 2019 Assessment & Plan (1) S/P total knee arthroplasty: POD 1 - left total knee arthroplasty PT/OT as ordered Regular diet as ordered May be OOB as tolerated, WBAT with assistance of a walker, knee immobilizer when out of bed, may D/C if good quad control. Lovenox to start in Am for bridging, warfarin resumed. Patient instructed to contact [facility] for post operative PT/INR and coumadin dosage instructions. Will send home with Lovenox for bridging until INR therapeutic or instructed to stop by Coumadin Clinic. Will resume regular home dose this evening. Dressings kept in place, will plan for home nursing to change tomorrow. Ice/elevation PRN Dr. Lester present for today's visit, discharge instructions reviewed. Case management for disposition. Plan for discharge home today with [facility] home health. Follow up with Dr. Lester as scheduled in approximately 2 weeks. Call our office with questions. Admission and Anticipated Discharge Date Admission Date: December 21, 2019 Subjective Patient doing well, resting comfortably in bed. Pain is well controlled - 2/10 with minimal usage of pain medications. Urinating and passing flatus. Tolerating regular diet. Denies chest pain, calf pain, shortness of breath, nausea or vomiting. Desires discharge to home with home nursing care. Physical Exam Physical Exam: Left knee dressings clean, dry, intact. Strength 5/5. Distal sensation normal. Pulses 1+. No distal edema. Able to independently SLR LLE. Results & Data ([facility]) Vital Signs (Past 12 Hours) Vital Signs Temp Pulse Resp BP Pulse Ox 12/22/19 11:26 63 16 153/68 H 94 12/22/19 07:06 36.6 C 72 16 157/72 H 96 12/22/19 02:50 36.5 C 64 16 138/71 92 Laboratory Results Lab Results 11/30/19 11/30/19 11/30/19 Range/Units 09:10 09:10 09:10 WBC 7.98 (4.8-10.8) K/uL RBC 4.47 L (4.7-6.1) M/uL Hgb 13.7 L (14.0-18.0) g/dL Hct 40.2 L (42-52) % MCV 89.9 (80-100) fL MCH 30.6 (25-34) pg MCHC 34.1 (32-36) g/dL RDW Std Deviation 45.0 (36.4-46.3) fL RDW Coeff of Ana Maria 13.7 (11.5-14.5) % Plt Count 236 (130-400) K/uL MPV 10.6 H (7.4-10.4) fL Immature Gran % (Auto) 0.3 % Neut % (Auto) 67.4 % Lymph % (Auto) 19.3 % [place] % (Auto) 11.8 % Eos % (Auto) 0.9 % Baso % (Auto) 0.3 % Neut # (Auto) 5.39 (1.4-6.5) K/uL Lymph # (Auto) 1.54 (1.2-3.4) K/uL [place] # (Auto) 0.94 H (0.11-0.59) K/uL Eos # (Auto) 0.07 (0-0.5) K/uL Baso # (Auto) 0.02 (0-0.2) K/uL Immature Gran # (Auto) 0.02 (0.00-0.02) K/uL PT (9.0-12.0) Seconds INR (0.9-1.1) APTT (21.0-31.0) Seconds PTT Ratio Sodium 139 (136-145) mmol/L Potassium 3.5 (3.5-5.1) mmol/L Chloride 103 (98-107) mmol/L Carbon Dioxide 29 (21-32) mmol/L Anion Gap 7.0 (3-11) BUN 29 H (7-18) mg/dl Creatinine 1.44 H (0.6-1.4) mg/dl Est Cr Clr Drug Dosing 45.8 ml/min Est GFR ( Amer) 53.2 Est GFR (Non-Af Amer) 45.9 BUN/Creatinine Ratio 20.2 H (10-20) Glucose 107 H (70-99) mg/dl Calcium 9.1 (8.5-10.1) mg/dl Blood Type O Positive Antibody Screen NEGATIVE 11/30/19 12/21/19 12/22/19 Range/Units 09:10 08:44 05:43 WBC 16.89 H (4.8-10.8) K/uL RBC 4.05 L (4.7-6.1) M/uL Hgb 12.4 L (14.0-18.0) g/dL Hct 36.6 L (42-52) % MCV 90.4 (80-100) fL MCH 30.6 (25-34) pg MCHC 33.9 (32-36) g/dL RDW Std Deviation 45.1 (36.4-46.3) fL RDW Coeff of Ana Maria 13.6 (11.5-14.5) % Plt Count 203 (130-400) K/uL MPV 10.7 H (7.4-10.4) fL Immature Gran % (Auto) % Neut % (Auto) % Lymph % (Auto) % [place] % (Auto) % Eos % (Auto) % Baso % (Auto) % Neut # (Auto) (1.4-6.5) K/uL Lymph # (Auto) (1.2-3.4) K/uL [place] # (Auto) (0.11-0.59) K/uL Eos # (Auto) (0-0.5) K/uL Baso # (Auto) (0-0.2) K/uL Immature Gran # (Auto) (0.00-0.02) K/uL PT 18.7 H 12.1 H (9.0-12.0) Seconds INR 1.8 H 1.2 H (0.9-1.1) APTT 39.3 H 29.6 (21.0-31.0) Seconds PTT Ratio 1.4 1.1 Sodium (136-145) mmol/L Potassium (3.5-5.1) mmol/L Chloride (98-107) mmol/L Carbon Dioxide (21-32) mmol/L Anion Gap (3-11) BUN (7-18) mg/dl Creatinine (0.6-1.4) mg/dl Est Cr Clr Drug Dosing ml/min Est GFR ( Amer) Est GFR (Non-Af Amer) BUN/Creatinine Ratio (10-20) Glucose (70-99) mg/dl Calcium (8.5-10.1) mg/dl Blood Type Antibody Screen 12/22/19 12/22/19 Range/Units 05:43 05:43 WBC (4.8-10.8) K/uL RBC (4.7-6.1) M/uL Hgb (14.0-18.0) g/dL Hct (42-52) % MCV (80-100) fL MCH (25-34) pg MCHC (32-36) g/dL RDW Std Deviation (36.4-46.3) fL RDW Coeff of Ana Maria (11.5-14.5) % Plt Count (130-400) K/uL MPV (7.4-10.4) fL Immature Gran % (Auto) % Neut % (Auto) % Lymph % (Auto) % [place] % (Auto) % Eos % (Auto) % Baso % (Auto) % Neut # (Auto) (1.4-6.5) K/uL Lymph # (Auto) (1.2-3.4) K/uL [place] # (Auto) (0.11-0.59) K/uL Eos # (Auto) (0-0.5) K/uL Baso # (Auto) (0-0.2) K/uL Immature Gran # (Auto) (0.00-0.02) K/uL PT 12.9 H (9.0-12.0) Seconds INR 1.2 H (0.9-1.1) APTT (21.0-31.0) Seconds PTT Ratio Sodium 138 (136-145) mmol/L Potassium 3.6 (3.5-5.1) mmol/L Chloride 106 (98-107) mmol/L Carbon Dioxide 24 (21-32) mmol/L Anion Gap 8.0 (3-11) BUN 36 H (7-18) mg/dl Creatinine 1.81 H (0.6-1.4) mg/dl Est Cr Clr Drug Dosing 35.4 ml/min Est GFR ( Amer) 40.0 Est GFR (Non-Af Amer) 34.5 BUN/Creatinine Ratio 19.7 (10-20) Glucose 129 H (70-99) mg/dl Calcium 8.0 L (8.5-10.1) mg/dl Blood Type Antibody Screen
[2019-12-22] MEDS ORDERED: CeleBREX 200 MG CAP PO SCH (21:00)
--- NOTE | 2019-12-23 08:23 | Discharge Summary ---
Date of Service December 23, 2019 Discharge Data Consultations 12/21/19 14:57 Consult Case Management - Discharge Planning Routine Procedures Performed Operation Date: 12/21/19 10:00 Actual Procedures p Left Total Knee Arthroplasty(Left) - Greg Lester MD Hospital Course (1) S/P total knee arthroplasty: Patient was admitted to [facility] on December 21, 2019 after undergoing an elective left total knee arthroplasty by Dr. Lester. His surgery was performed with spinal anesthesia and a peripheral nerve block. He tolerated the procedure well without any intraoperative or postoperative complications. Prior to surgery was given 2 g of IV Ancef which was continued for 24 hours after surgery. X-rays of his left knee were performed in the recovery room. X-ray report showed stable prosthesis with retained natanael. During his inpatient stay he tolerated a regular diet. He did not develop any chest pain, shortness of breath, nausea, vomiting, diarrhea, constipation or urinary retention. He was allowed out of bed, weight-bear as tolerated on his left lower extremity with the assistance of a walker and use of a knee immobilizer until good quad control obtained. His knee immobilizer was discontinued on postoperative day 1. His pain medication consisted of IV Dilaudid, oxycodone, Tylenol, tramadol, Toradol. His pain was well controlled during his inpatient stay. Physical therapy and occupational therapy and case management consults were placed. He requested a referral to [facility] for in-home nursing and physical therapy. He did well with physical therapy and Occupational Therapy and was deemed safe for discharge to his home with in-home nursing and physical therapy. His dressings remained clean and dry on his left knee and were not changed during his inpatient stay. This will be performed on postoperative day 2 as an outpatient by in-home nursing. His chronic Coumadin was resumed for postoperative DVT prophylaxis. He was also bridged with Lovenox 30 mg twice daily which will continue for approximately 1 week after his surgery. His Coumadin is managed by the [facility] and he was instructed to call them after discharge to determine when a new PT/INR would need to be obtained as well as his Coumadin dosage. He was res umed on his regular home 2.5 mg Coumadin dosage at the time of discharge. He was given a prescription for Lovenox to also take at home until discontinued by the Coumadin clinic. He was also given prescriptions upon discharge for oxycodone, tramadol. He was also instructed to use Tylenol and Colace or Senokot [id number] if needed for constipation. Discharge instructions and exercises were discussed with the patient. Those were stable during his inpatient stay. His regular home medications were continued. His preoperative COVID test was negative. He was discharged to his home in stable condition on December 22, 2019. He will follow-up as instructed in approximately [address] Lester. Postoperative CBC and BMP were within normal limits and as expected postoperatively. All questions were answered. Discharge Instructions New Medicine: * You will likely be taking one or more of these medications: 1. Coumadin - Take your Coumadin as instructed by Dr. Lester or coumadin clinic. Resume Coumadin 2.5mg daily. You may also be on Lovenox for bridging until your Coumadin is therapeutic. Stop as instructed by Dr. Lester or coumadin clinic. Call Coumadin Clinic once discharged for further instructions and managment. 2. Oxycodone - Take, as directed, when you need it, every four to six hours to control your pain. 3. Tramadol - Take, as directed, when you need it, every four to six hours to control your pain. 4. Tylenol - Take, as directed, when you need it, every 8 hours to control your pain. 5. Colace & Senokot - Take to prevent constipation which can be caused by narcotics. These can be bought [id number] at the pharmacy. Also do your normal daily constipation prevention routine. 6. Lovenox - you will be given a script (sent to your pharmacy) at discharge for Lovenox 30 mg twice daily x 1 week. This is to thin your blood until your PT/INR is appropriate. Stop Lovenox as instructed by Coumadin Clinic or Dr. Lester. * The most common side effects of pain medicine and iron are nausea and constipation. If nausea or constipation is too much of a problem or if you have any questions about your new medicines or doses, call [facility] at . We will try to help you manage these issues. "VERY IMPORTANT TO READ AND REVIEW" Blood Clots and Blood Thinning Medicine: * Take your Coumadin as instructed by Dr. Lester or the Coumadin Clinic. Get your PT/INR drawn as instructed by Coumadin Clinic. They will resume managing your Coumadin after discharge. Physical Therapy: * Do your physical therapy at home. These are the exercises you learned while in the hospital (quad sets, leg raises, calf pumps, gluteal squeezes, knee bending, and heel props.) You should do these exercises 3-4 times per day. * You will either go to inpatient rehab ([facility]), home with Home Therapy and nursing or home with outpatient rehab. You should do rehab with the therapist 2-3 times per week. You should do therapy on your own daily. * You may bear full weight on your leg with crutches or walker unless otherwise advised. Home Exercise: * You were shown a series of exercises (heel props, heel slides, etc.) in the hospital. Do these exercises three to four times each day including the exercises you were shown in physical therapy. Walking: * You may be up for short periods of time. Standing and walking for 1-2 hours at a time is usually okay. You should not stand or walk for excessive periods of time as this may Cause increased pain and swelling. SELF CARE INSTRUCTIONS AFTER TOTAL KNEE REPLACEMENT A. You may need to continue a physical therapy program after discharge from the hospital. There are several options available to you. Your doctor will assist you in selecting the best one for you. 1. An out-patient facility 2 to 3 times a week for therapy or home therapy. 2. Continue working on all exercises taught to you in the hospital. Your goals should be to increase bending of your knee to 90 degrees and beyond and to fully straighten your knee. B. Your therapist will notify you when you are able to progress from a walker to a cane. C. Wear TEDS as much as possible.~ They may be removed at night for laundering. Okay to wear on during the day, and remove at night x 4 weeks after surgery. D. Do not place a pillow behind your knee when resting. A pillow at your ankle is okay. E. Ice your knee 15-20 minutes every 2-3 hours and elevate it above the level of your heart. F. You may shower on the fourth day after surgery using regular soap and water. Do not submerge until the wound is completely healed (approximately 2 weeks). Until the fourth day after surgery, cover the incision/bandage with a bag or plastic wrap. G. Anyone who is touching your surgical incision area should wash their hands and wear gloves. H. Keep your incision covered with gauze pads under the NARCISO hose until it is dry. I. Change dressing left knee on 12/23/19. Remove current dressings and redress incision with light gauze dressing and ABD pad. Apply Narciso stocking over dressings on left knee. J. You may stop using your knee immobilizer if your knee feels stable with walking. K. No swimming until incision healed - approximately 1 week after natanael are removed. L. Call [facility] for blood thinner instructions. Get PT/INR drawn by home nursing when instructed by Coumadin Clinic. Home nursing can draw blood while they are coming to your house, but they will need an order from Coumadin clinic. VERY IMPORTANT TO READ AND REVIEW A. There are a few signs you need to watch for after you are home. Call [facility] if you notice any of the followin. Increased severe knee pain. Some pain is expected especially when you exercise. 2. Increased swelling in your leg or knee; pain or swelling of the calf muscle in either lower leg. 3. Any fluid drainage from the incision. 4. Shortness of breath or chest pain. 5. Numbness and tingling in the surgical extremity B. Please call [facility] at if you have any concerns or questions about your operation or recovery. The doctor or his nurse will return your call promptly. C. Do not have any elective dental work or other elective procedures done for 6 weeks after your knee replacement. When you have any invasive procedure (dental cleaning, extraction, colonoscopy etc) performed, you will need to take antibiotics to prevent infection from developing in your artificial joint. Tell your other health care providers you have an artificial joint. My office will supply you with further information and the antibiotics. Call your doctor if: * Temperature above 101 degrees F. * Pain not relieved by pain medicine ordered. * Increased drainage or redness from incision. * Notify your doctor with any questions or concerns. Follow-up Visit: You will follow-up with Dr. Lester 10-14 days after surgery. The office number is . Avoid all tobacco products. If you need help to stop smoking, call [place]IT[facility] at . This is a free call.
== END 2019-12-22 15:12 | disposition home health service (06) ==
LOC: ASU 08:02 → 3E 08:02

== ENCOUNTER 2023-11-13 10:19 | Inpatient (IN) ==
--- NOTE | 2023-11-13 11:13 | Emergency Department Note ---
Impression & Plan Cellulitis of left hand, Left hand pain ED Provider Note CHIEF COMPLAINT: Left hand pain and swelling HISTORY OF PRESENT ILLNESS: This 82 year old male patient presents to the emergency department via private vehicle for evaluation of left hand pain and swelling. Patient states he woke up with the hand pain and swelling. He states there is no open wounds or bleeding. He denies any known trauma. He denies history of similar symptoms, though after obtaining more of a history, states he did have a similar episode several years ago in his right hand which was uncertain whether or not this was related to gout versus infection. Patient is on allopurinol daily due to his history of gout. He denies any recent flare ups and states normally his flare ups are in his big toe. Patient denies any fever or chills. No nausea or vomiting. No numbness, tingling, weakness. REVIEW OF SYSTEMS: A 10 system review of systems was performed with positives and pertinent negatives listed in the history of present illness. All other systems were reviewed and are negative. ALLERGIES: Penicillin PHYSICAL EXAM: VITALS: Vitals are noted on the nurse's note and reviewed by myself. Vital signs stable. GENERAL: This is an 82-year-old male, in no acute distress, nondiaphoretic, well-developed well-nourished. SKIN: There is edema and tenderness of the dorsal medial aspect of the proximal left hand. There is tenderness to palpation of the proximal metacarpals. There is tenderness with flexion and extension of the wrist. There is a faint area of erythema which seems to be extending proximally up the forearm extending from the area of swelling in the hand. No open wounds or bleeding. The skin was otherwise without rashes, erythema, edema, or bruising. There is no tenting of the skin. Capillary refill less than 2 seconds. HEAD: Normocephalic atraumatic. EYES: Conjunctivae without injection, sclerae without icterus. NECK: Supple without nuchal rigidity. No lymphadenopathy. Cervical spine is nontender. No JVD. HEART: Regular rate and rhythm without murmurs gallops or rubs. LUNGS: Clear to auscultation bilaterally without wheezes, rales or rhonchi. No retractions or accessory muscle use. MUSCULOSKELETAL: Tenderness palpation of the left hand and wrist with erythema as previously described. There is tenderness with flexion and extension of the left wrist. No muscle atrophy, erythema, or edema noted. Full range of motion without joint tenderness in all extremities. No tenderness to palpation. Normal gait. Strength 5/5 throughout. NEURO: Patient was alert and oriented to person place and time. No focal neurological deficits. Imaging as interpreted by myself and the radiologist revealed bony erosion and soft tissue swelling, with radiologist interpretation as above. I agree with the radiologist's findings as based upon my independent interpretation. EMERGENCY DEPARTMENT COURSE: The patient was seen and evaluated as above. The patient presents for left hand pain and swelling. This was atraumatic in nature. He does have a history of gout. There is some erythema and concern for possible lymphangitis extending up the left forearm. Given the redness and tenderness, did recommend lab evaluation. IV access was obtained, labs are drawn. There was a leukocytosis of 16,000. There is no concerning anemia or thrombocytopenia. Renal, hepatic function and electrolytes without significant abnormality. Procalcitonin 0.03. X-ray completed and reviewed by myself and radiologist as noted. I discussed case with my attending physician. He did see the patient. There is concern for acute cellulitis versus gout. Given that the mild erythema on the forearm as well as the leukocytosis of 16,000, did recommend treatment with IV antibiotics and observation in the hospital. Did speak with the ED pharmacist. Will start the patient on ceftriaxone here in the emergency department. He was also given an additional dose of colchicine. I discussed case with Dr. Reed. He did agree to see the patient for admission. Please see hospitalist dictation regarding ongoing management and care of this patient. I attest that I have personally reviewed the patient medication list. I attest that I have reviewed the patient's blood pressure and it was found to be normal GCS: 15 In the evaluation and treatment of this patient the following differential diagnoses were entertained: Cellulitis, abscess, MRSA infection, DVT, gout, necrotizing fasciitis, dermatitis, drug eruption, allergic reaction, as well as other pathologies. The chart was completed utilizing [employer] Speech voice recognition software. Grammatical errors, random word insertions, pronoun errors, and incomplete sentences are an occasional consequence of this system due to software limitations, ambient noise, and hardware issues. Any formal questions or concerns about the content, text, or information contained within the body of this dictation should be directly addressed to the provider for clarification. Past Med/Surg History Problem List (Updated 11/13/23 @ 15:58 by Roxi Parham PA-C) Left hand pain (Acute) Cellulitis of left hand (Acute) CKD (chronic kidney disease) stage III - HAS SHAYLEE ARDACOER Mar WITH KIDNEY DOC ? NAME Hypertension Acute gout S/P total knee arthroplasty (Acute) Sinus node dysfunction Pt admitted for elective single chamber pacemaker due to AF with SVR and SND; underwent procedure without any complications; monitored overnight and discharged home next day in stable condition Atrial fibrillation (Chronic) Pt admitted for elective single chamber pacemaker due to AF with SVR and SND; underwent procedure without any complications; monitored overnight and discharged home next day in stable condition; continue coumadin Medical History Lumbar spinal stenosis Osteoarthritis Chronic back pain [place] 07[place] tachy-pat syndrome/sinus node dysfunction, [employer], last check 09/2019 ([facility]) HAS HOME CHECK SYSTEM, CHECKS EVERY NIGHT Atrial fibrillation paroxysmal Borderline high cholesterol Sleep apnea CPAP Surgical History History of total left knee replacement DEC 2019 History of colonoscopy S/P cardiac pacemaker procedure HX [facility] 2018 S/P repair of hydrocele HX S/P epidural steroid injection HX caudal History of prostatectomy DUE TO ENLARGEMENT Family History Brother Throat cancer Family history of diabetes mellitus Sister Family history of diabetes mellitus Other No family history of adverse response to anesthesia Social History Smoking Status: Never smoker Second Hand Exposure: No; Do You Dip or Chew Tobacco: No; Hx Alcohol Use: Yes Alcohol type: beer Hx Substance Use: No Preferred Language: Nepalese Communication Ability: Effective Visual Impairment: Limited Hearing Ability: Normal [facility] Nurse Practitioner Required: No Beliefs That Will Affect Care: None marital status: Current Living Situation: Spouse Feels Safe at Home: Yes Assistive Devices: CPAP and Glasses Allergies Allergies Allergy/AdvReac Type Severity Reaction Status Date / Time Penicillins Allergy Unknown RASH - Verified 11/13/23 14:58 REMOTE HX OF Home Meds Home Medications Medication Instructions Recorded Confirmed acetaminophen 500 mg tablet 500 - 1,000 mg PO DIRECTED PRN 04/23/19 11/13/23 (Tylenol Extra Strength) Pain amlodipine 10 mg tablet 10 mg PO QAM 04/23/19 11/13/23 chlorthalidone 25 mg tablet 25 mg PO QAM 04/23/19 11/13/23 losartan 25 mg tablet 25 mg PO QAM 04/23/19 11/13/23 multivitamin 1 tab PO QAM 04/23/19 11/13/23 warfarin 2.5 mg tablet 2.5 mg PO QPM 04/23/19 11/13/23 vitamins A,C,K-mgzy-extdkd 2,148 1 tab PO BID 11/23/19 11/13/23 mcg-113 mg-45 mg-17.4 mg tablet (PreserVision AREDS) allopurinol 100 mg tablet 200 mg PO QAM 11/13/23 11/13/23 Results & Data (ED) Vital Signs Vital Signs - 24 hr 11/13/23 10:39 11/13/23 12:25 11/13/23 14:25 Temperature 36.0 C L Temperature Source Skin Pulse Rate 63 Pulse Rate [Finger] 75 62 Pulse Rhythm Regular Pulse Rhythm [Finger] Regular Pulse Strength Normal Pulse Strength [Finger] Respiratory Rate 20 18 18 Respiratory Effort / Characteristics Non-Labored Spontaneous Non-Labored Spontaneous Non-Labored Spontaneous Respiratory Depth Normal Normal Normal Respiratory Pattern Regular Regular Regular Blood Pressure 136/64 Blood Pressure [Right Arm] 116/61 121/70 Blood Pressure Mean 88 Blood Pressure Mean [Right Arm] 79 87 Blood Pressure Position [Right Arm] Sitting Pulse Oximetry 96 96 93 Oxygen Delivery Method Room Air Room Air Room Air Sepsis Recent Fever Within 48 Hours No Sepsis New/Unexplained Change in Mental Status N/A Sepsis Action Taken by Nursing No Action Required 11/13/23 15:05 Temperature 36.5 C Temperature Source Oral Pulse Rate Pulse Rate [Finger] 76 Pulse Rhythm Pulse Rhythm [Finger] Regular Pulse Strength Pulse Strength [Finger] Normal Respiratory Rate 20 Respiratory Effort / Characteristics Non-Labored Spontaneous Respiratory Depth Normal Respiratory Pattern Regular Blood Pressure Blood Pressure [Right Arm] 156/71 H Blood Pressure Mean Blood Pressure Mean [Right Arm] 99 Blood Pressure Position [Right Arm] Sitting Pulse Oximetry 92 Oxygen Delivery Method Room Air Sepsis Recent Fever Within 48 Hours Sepsis New/Unexplained Change in Mental Status Sepsis Action Taken by Nursing Laboratory Data 11/13/23 11:07 11/13/23 11:07 Lab Results 11/13/23 11/13/23 Range/Units 11:07 13:04 WBC 16.80 H (4.8-10.8) K/ul RBC 4.52 L (4.70-6.10) M/uL Hgb 13.5 L (14.0-18.0) g/dl Hct 40.2 L (42.0-52.0) % MCV 88.9 (80.0-100.0) fL MCH 29.9 (25.0-34.0) pg MCHC 33.6 (32.0-36.0) g/dL RDW Std Deviation 46.4 H (36.4-46.3) fL RDW Coeff of Ana Maria 14.4 (11.5-14.5) % Plt Count 235 (130-400) K/uL MPV 10.8 (9.4-12.4) fL Immature Gran % (Auto) 0.5 % Neut % (Auto) 87.0 % Lymph % (Auto) 5.9 % Lawrence % (Auto) 6.2 % Eos % (Auto) 0.2 % Baso % (Auto) 0.2 % Neut # (Auto) 14.62 H (1.40-6.50) K/uL Lymph # (Auto) 0.99 L (1.20-3.40) K/uL Lawrence # (Auto) 1.04 H (0.11-0.59) K/uL Eos # (Auto) 0.03 (0.00-0.50) K/uL Baso # (Auto) 0.04 (0.00-0.20) K/uL Immature Gran # (Auto) 0.08 (0.01-0.20) K/uL PT 25.1 H (9.0-12.0) Seconds INR 2.5 H (0.9-1.1) APTT 43 H (21-31) Seconds PTT Ratio 1.6 Sodium 134 L (136-145) mmol/L Potassium 3.4 L (3.5-5.1) mmol/L Chloride 99 (98-107) mmol/L Carbon Dioxide 26 (21-32) mmol/L Anion Gap 9 (3-11) BUN 30 H (6-23) mg/dl Creatinine 1.31 (0.6-1.4) mg/dl Est Cr Clr Drug Dosing 45.9 ml/min Est GFR ( Amer) 57.9 ml/min Est GFR (Non-Af Amer) 50.0 ml/min BUN/Creatinine Ratio 22.9 H (10-20) Glucose 154 H (70-99(Fasting)) mg/dl Lactate 1.4 (0.4-2.0) mmol/L Uric Acid 5.6 (2.6-7.2) mg/dl Calcium 9.4 (8.6-10.3) mg/dl Total Bilirubin 0.7 (0.2-1.0) mg/dl AST 17 (13-39) U/L ALT 12 (7-52) U/L Alkaline Phosphatase 81 (34-104) U/L Total Protein 7.4 (6.0-8.3) gm/dl Albumin 4.1 (3.4-5.0) gm/dl Globulin 3.3 (2.5-4.0) gm/dl Albumin/Globulin Ratio 1.2 (0.9-2) Procalcitonin 0.03 (0-0.5) ng/ml Administered Medications Oxycodone HCl (Oxycodone Hcl Ir 5 Mg Tab (Immediate Release)) 5 mg PO Q6H PRN PRN Reason: Pain Stop: 11/27/23 13:48 Last Admin: 11/13/23 14:15 Dose: 5 mg Documented By: IWONA Discontinued Medications Colchicine (Colchicine 0.6 Mg Tab) 1.2 mg PO NOW ONE Stop: 11/13/23 12:57 Last Admin: 11/13/23 13:18 Dose: 1.2 mg Documented By: IWONA Ceftriaxone Sodium (Rocephin) 2,000 mg in 50 mls @ 100 mls/hr IV NOW STA Stop: 11/13/23 13:25 Last Infusion: 11/13/23 13:48 Dose: Infused Documented By: Admin: 11/13/23 13:18 Dose: 100 mls/hr Documented By: IWONA Imaging Data Radiologist's Impression: Hand X-Ray 11/13/23 10:54 XR hand LT min 3V routine CLINICAL HISTORY: pain, swelling TECHNIQUE: 4 views of the left wrist and 3 views of left hand were obtained. Comparison: None available at the time of this dictation. FINDINGS: There is no evidence of an acute fracture. Osteophyte formation and joint space narrowing is seen. Questionable erosions at the second MTP joint. No soft tissue abnormality is seen. IMPRESSION: Degenerative changes are seen which may include an erosive component. No evidence of acute fracture. ACT 112: Negative or not required by law. Electronically signed by: Josemanuel Maravilla M.D. 11/13/2023 11:46 AM Wrist X-Ray 11/13/23 10:54 XR wrist LT w scaphoid CLINICAL HISTORY: pain, swelling TECHNIQUE: 4 views of the left wrist and 3 views of left hand were obtained. Comparison: None available at the time of this dictation. FINDINGS: There is no evidence of an acute fracture. Osteophyte formation and joint space narrowing is seen. Questionable erosions at the second MTP joint. No soft tissue abnormality is seen. IMPRESSION: Degenerative changes are seen which may include an erosive component. No evidence of acute fracture. ACT 112: Negative or not required by law. Electronically signed by: Josemanuel Maravilla M.D. 11/13/2023 11:40 AM Discharge Plan Visit Data Chief Complaint: Hand Injury/Pain Stated Complaint: LEFT HAND PAIN ED Provider: Chuck Morrow ED Midlevel Provider: Roxi Parham Discharge Problem: Cellulitis of left hand, Left hand pain Patient Disposition: Admitted As Inpatient Forms Stand Alone Forms: [facility] Prescriptions Prescriptions: No Action multivitamin Tablet 1 tab PO QAM warfarin 2.5 mg Tablet 2.5 mg PO QPM Patient Comments: EVERY DAY 2.5 MG IN THE EVENING, FRIDAY NIGHTS 2 TAB IN THE EVENING Rx Instructions: and will adjust according coag clinic ([facility]) chlorthalidone 25 mg Tablet 25 mg PO QAM acetaminophen [Tylenol Extra Strength] 500 mg Tablet 500 - 1,000 mg PO DIRECTED PRN (Reason: Pain) amlodipine 10 mg Tablet 10 mg PO QAM losartan 25 mg Tablet 25 mg PO QAM PreserVision AREDS [id number] [id number] Tablet 1 tab PO BID allopurinol 100 mg tablet 200 mg PO QAM Referrals Referrals: William Arreola, DO [Outside Practitioners] -
[2023-11-13 11:41] LABS: Basophils # (auto) 0.04 K/uL (0.00-0.20); Basophils % (auto) 0.2 %; Eosinophils # (auto) 0.03 K/uL (0.00-0.50); Eosinophils % (auto) 0.2 %; Hematocrit (blood only) 40.2 % (42.0-52.0); Hemoglobin 13.5 g/dl (14.0-18.0); Immature Granulocytes # (auto) 0.08 K/uL (0.01-0.20); Immature Granulocytes % (auto) 0.5 %; Lymphocytes # (auto) 0.99 K/uL (1.20-3.40); Lymphocytes % (auto) 5.9 %; Mean Corpuscular Hemoglobin 29.9 pg (25.0-34.0); Mean Corpuscular Hgb Conc 33.6 g/dL (32.0-36.0); Mean Corpuscular Volume 88.9 fL (80.0-100.0); Mean Platelet Volume 10.8 fL (9.4-12.4); Monocytes # (auto) 1.04 K/uL (0.11-0.59); Monocytes % (auto) 6.2 %; Neutrophils # (auto) 14.62 K/uL (1.40-6.50); Platelet Count 235 K/uL (130-400); RDW Coefficient of Variation 14.4 % (11.5-14.5); RDW Standard Deviation 46.4 fL (36.4-46.3); Red Blood Count 4.52 M/uL (4.70-6.10)
--- NOTE | 2023-11-13 11:41 | XRay Report ---
XR wrist LT w scaphoid CLINICAL HISTORY: pain, swelling TECHNIQUE: 4 views of the left wrist and 3 views of left hand were obtained. Comparison: None available at the time of this dictation. FINDINGS: There is no evidence of an acute fracture. Osteophyte formation and joint space narrowing is seen. Qu estionable erosions at the second MTP joint. No soft tissue abnormality is seen. IMPRESSION: Degenerative changes are seen which may include an erosive component. No evidence of acute fracture. ACT 112: Negative or not required by law. Electronically signed by: Josemanuel Maravilla M.D. 11/13/2023 11:40 AM
--- NOTE | 2023-11-13 11:47 | XRay Report ---
XR hand LT min 3V routine CLINICAL HISTORY: pain, swelling TECHNIQUE: 4 views of the left wrist and 3 views of left hand were obtained. Comparison: None available at the time of this dictation. FINDINGS: There is no evidence of an acute fracture. Osteophyte formation and joint space narrowing is seen. Qu estionable erosions at the second MTP joint. No soft tissue abnormality is seen. IMPRESSION: Degenerative changes are seen which may include an erosive component. No evidence of acute fracture. ACT 112: Negative or not required by law. Electronically signed by: Josemanuel Maravilla M.D. 11/13/2023 11:46 AM
[2023-11-13 11:53] LABS: Albumin Globulin Ratio 1.2 (0.9-2); Albumin Level 4.1 gm/dl (3.4-5.0); BUN Creatinine Ratio 22.9 (10-20); Bilirubin,Total 0.7 mg/dl (0.2-1.0); Calcium 9.4 mg/dl (8.6-10.3); Creatinine Clr Calc Pharmacy 45.9 ml/min; Est GFR (African American) 57.9 ml/min; Globulin 3.3 gm/dl (2.5-4.0); Potassium 3.4 mmol/L (3.5-5.1); Total Protein 7.4 gm/dl (6.0-8.3); Uric Acid 5.6 mg/dl (2.6-7.2)
[2023-11-13] MEDS: COLCHICINE 0.6 MG TAB PO ONE (13:18)
[2023-11-13] MEDS: cefTRIAXone SODIUM 2,000 MG/50 ML BAG IV STA (13:18)
[2023-11-13 13:35] LABS: INR 2.5 (0.9-1.1); Partial Thromboplastin Ratio 1.6; Partial Thromboplastin Time 43 Seconds (21-31); Prothrombin Time 25.1 Seconds (9.0-12.0)
--- OUTSIDE RECORDS SUMMARY | 2023-11-13 13:46 | External Medical Summary ---
Author Name Unknown Address Unknown Organization K01:[facility] - [address] [place] [address] Laboratory Report Ordering Provider Test Date Status SOHA COURTNEY 10/13/2023 09:56:40 Final Observation Date Value Abnormality Reference (Units ) Status Magnesium 10/13/2023 09:56:40 2.1 1.5-2.6 (m g/dL) Final Performing Location [facility] - [address] [place] [place] [address]
--- OUTSIDE RECORDS SUMMARY | 2023-11-13 13:46 | External Medical Summary ---
Author Name Unknown Address Unknown Organization [id number]:LAB[facility]ATORY [facility] [place] - [address] [place] [address] Laboratory Report Ordering Provider Test Date Status SOHA COURTNEY 10/13/2023 09:56:40 Final Observation Date Value Abnormality Reference (Units ) Status Parathyrin.intact [Mass/volume] in Serum or Plasma 10/13/2023 09:56:40 52 15-65 (pg/mL) Final Performing Location [facility]ATORY [facility] [place] - [address] [place] [address]
--- OUTSIDE RECORDS SUMMARY | 2023-11-13 13:46 | External Medical Summary ---
Author Name Unknown Address Unknown Organization [id number]:[facility] [place] - [facility] [address] [place] [address] Laboratory Report Ordering Provider Test Date Status DEANNADANNY 10/13/2023 09:56:40 Final Normal: <30 mg/g creatinine< br/>High: 30-300 mg/g creatinine
Very High: >300 mg/g creatinine
Nephrotic: >2200 mg/g creatinine Observation Date Value Abnormality Reference (Units ) Status Albumin, Urine 10/13/2023 09:56:40 9.84 (mg/dL) Final Creatinine, Urine 10/13/2023 09:56:40 95 (mg/dL) Final Albumin/Creatinine [Mass Ratio] in Urine 10/13/2023 09:56:40 104 Above high normal <30 (mg/g Creat) Final Performing Location [facility]ATORY [facility] [place] - [address] [place] [address]
--- OUTSIDE RECORDS SUMMARY | 2023-11-13 13:46 | External Medical Summary ---
Author Name Unknown Address Unknown Organization [id number]:[facility] [place] - [address] [facility] [place] [address] Laboratory Report Ordering Provider Test Date Status SOHA COURTNEY 10/13/2023 09:56:40 Final Observation Date Value Abnormality Reference (Units ) Status SYNC LEUKOCYTES IN BLOOD BY AUTOMATED COUNT 10/13/2023 09:56:40 9.54 4.00-10.80 (K/uL) Final Segs 10/13/2023 09:56:40 69.6 40.0-75.0 (%) Final Lymphs % 10/13/2023 09:56:40 20.5 18.0-42.0 (%) Final Monos 10/13/2023 09:56:40 8.2 1.0-11.0 (%) Final Eosinophils 10/13/2023 09:56:40 0.9 0.0-6.0 (%) Final Basos 10/13/2023 09:56:40 0.6 0.0-2.0 (%) Final Immature Granulocyte, Percent 10/13/2023 09:56:40 0.2 0.0-2.0 (%) Final Absolute Segs 10/13/2023 09:56:40 6.63 1.80-7.70 (K/uL) Final Lymphs, absolute 10/13/2023 09:56:40 1.96 1.00-4.80 (K/ul) Final Monos, Abs 10/13/2023 09:56:40 0.78 0.00-1.10 (K/uL) Final Eos, Abs 10/13/2023 09:56:40 0.09 0.00-0.70 (K/uL) Final Basos, Abs 10/13/2023 09:56:40 0.06 0.00-0.20 (K/uL) Final Immature Granulocytes, Number 10/13/2023 09:56:40 0.02 0.00-0.20 (K/uL) Final Performing Location [facility]ATORY [facility] [place] - [address] [facility] [address]
--- OUTSIDE RECORDS SUMMARY | 2023-11-13 13:46 | External Medical Summary | Summary of Care ---
Author Name Unknown Organization [facility] Address [address] [place] [facility] [place] [address] Phone [phone] Care Team Providers Care Substation Superintendent Name Role Phone Iliana Lund DO Primary Care Provider Reason for Visit * Reason Onset Date Comments Dosage Adjustment In Person (Anticoag Clinic) Medication Management Immunizations 11/10/2023 Shingrix Encounter Details Date Type Department Care Team (Late st Contact Info) Description 11/10/2023 10:20 AM EDT Pharmacy Family Practice [address] [facility] [address] [place] [address] College, Pharmacist [address] [address] Medication management*; Need for vaccination for zoster Allergies Active Allergy Reactions Criticality Noted Date Comments Parish Inhibitors Cough Medium 05/14/2011 Penicillins 01/30/1999 rash documented as of this encounter (statuses as of 11/10/2023) Medications Medication Sig Dispensed Refills Start Date End Date Status MULTIVITAMIN/IRON 60 MG PO CHEW Take 1 Tablet by mouth in the morning. Active PreserVision AREDS 2 Oral Capsule Take 1 Capsule by mouth in the morning and 1 Capsule before bedtime. 30 Cap 04/10/2020 Active CPAP every night at bedtime. Active Chlorthalidone 25 MG Oral Tablet (Hygroton)Indicatio ns:Hypertensive kidney disease with chronic kidney disease stage III (HCC) TAKE ONE TABLET BY MOUTH EVERY MORNING 100 Tablet 2 03/18/2023 4 Active Losartan Potassium 25 MG Oral Tablet (Cozaar)Indications :Essential hypertension with goal blood pressure less than 140/90 TAKE ONE TABLET BY MOUTH EVERY MORNING 90 Tablet 1 08/28/2023 Active Warfarin Sodium 2.5 MG Oral Tablet (Coumadin)Indicatio ns:Anticoagulation management encounter,Paroxysma l 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 (HCC),retirement current use of anticoagulant therapy Take 1 Tablet by mouth daily DIRECTED BY ANTICOAG CLINIC 90 Tablet 08/27/2023 Active Allopurinol 100 MG Oral Tablet (Zyloprim)Indicatio ns:Elevated uric acid in blood Take 2 Tablets by mouth in the morning. 180 Tablet 10/08/2023 Active amLODIPine Besylate 10 MG Oral Tablet (Norvasc)Indication s:Essential hypertension with goal blood pressure less than 140/90 Take 1 Tablet by mouth daily. 90 Tablet 10/08/2023 Active Acetaminophen 500 MG Oral Tablet (Tylenol) Take 2 Tablets by mouth as needed (back pain). Active Zoster Vac Recomb Adjuvanted 50 MCG/0.5ML Intramuscular Suspension Reconstituted (Shingrix)Indicatio ns:Need for vaccination for zoster Inject 0.5 mL into a large muscle 1 Each 11/10/2023 Active Acetaminophen ER 650 MG Oral Tablet Extended Release Take 1 Tablet by mouth every 8 hours as needed for Pain (left knee). 4 Discontinue d(Medicatio n List Clean Up) documented as of this encounter (statuses as of 11/10/2023) Active Problems Problem Noted Date Diagnosed Date 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 09/23/2023 Idiopathic chronic gout of multiple sites withou sofie snow 10/17/2021 Hx of nonmelanoma skin cancer 04/23/2021 Overview: BCC R ala and R cheek 06/2022, BCC L midhelix 06/2021, R midhelix 10/2020 Hx of actinic keratosis 10/16/2020 Chronic kidney disease, stage 3b 09/19/2020 Overview: Per CKD protocol Hypertensive kidney disease with stage 3b chronic kidney disease 03/20/2020 Overview: Per CKD protocol Prediabetes 03/22/2019 Overview: Per Prediabetes protocol Cardiac pacemaker in situ 03/15/2019 Permanent 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 12/27/2016 Essential hypertension with goal blood pressure less than 140/90 03/07/2016 MAI (obstructive sleep apnea) 07/06/2014 CPAP (continuous positive airway pressure) depen david 07/06/2014 Elevated uric acid in blood 05/10/2014 History of prostatectomy 07/09/2010 Overview: [facility] [facility] [place] for BPH Dyslipidemia, goal to be determined 04/29/2008 FAM HX-DIABETES MELLITUS 03/26/2002 IMPOTENCE, ORGANIC ORIGN documented as of this encounter (statuses as of 11/10/2023) Resolved Problems Problem Noted Date Diagnosed Date Resolved Date Hypertensive kidney disease with chronic kidney disease stage III 09/04/2018 03/23/2020 Overview: Per CKD protocol 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 BPH with obstruction/lower u rinary tract symptoms 11/14/2009 12/28/2010 ABNORMAL FUNCTION STUDY, THYROID 04/29/2008 11/20/2009 ADVANCE DIRECTIVE INFORMATION 04/09/2005 03/24/2017 Overview: No, Advance Directive brochure given to patient. Sleep apnea 05/13/2002 03/24/2017 Overview: CPAP nightly, AHP HTN, goal below 140/90 03/07 BPH without obstruction/lowe r urinary tract symptoms 11/20/2009 ELEVATED PROSTATE SPECIFIC ANTIGEN 07/12/2015 Overview: ELEVATED PSA Elevated C-reactive protein (CRP) 12/28/2010 Overview: CRP (C-REACTIVE PROTEIN) ELEVATED CKD (chronic kidney disease) stage 3, GFR 30-59 ml/min 09/23/2018 documented as of this encounter (statuses as of 11/10/2023) Immunizations Name Administration Dates Next Due COVID-19 mRNA, LNP-s, No Pre serve, 2-Dose Series (Moderna) 02/11/2023 COVID-19 mRNA, LNP-s, No Pre serve, 2-Dose Series (Pfizer) 09/04/2021,07/19/2020,06/21/2020 H1N1 2009 Influenza, IM 05/22/2009 HEP A - Hepatitis A (Adult > 18 yrs) 06/30/2013, 12/08/2012 Pneumococcal Conjugate Vacc, 13 Valent (Prevnar) 01/05/2015 Pneumococcal Polysaccharide PPV23 (Pneumovax) 06/30/2013 Season Influenza, Quad, PF, Adjuvanted, 65+ Yrs, IM (FLUAD) 02/11/2023,03/06/2022,02/22/2020 Seasonal Influenza, PF, 6 M & above, IM , (FluLaval or Fluzone) 03/03/2018,03/24/2017 Seasonal Influenza, Quadriva lent Hd (Fluzone Hd) 02/21/2021 Seasonal Influenza, Quadriva lent, No Preserve, IM 01/29/2016 Seasonal Influenza, Split, I IV3, With Preserve, Inj 01/17/2015,02/16/2014,03/05/2013,01/12,02/25/2011,05/21/2010,02/23/2009 ,04/29/2008,04/24/2007,04/16/2006 Seasonal Influenza, Trivalen t, Adjuvanted, 65+ yrs 03/15/2019 TD, Preservative Free 04/29/2008 TDAP (age 10 and older)(Boostrix) 07/06/2014 Varicella Zoster Vaccine (Adult) 08/08/2009 Zoster Vaccine Recombinant (Shingrix) 11/10/2023 documented as of this encounter Social History Tobacco Use Types Packs/Day Years Used Date Smoking Tobacco: Never Smokeless Tobacco: Never Comments:smoke 100 cigs as a teenager Alcohol Use Standard Drinks/Week Comments Yes 0 (1 standard drink = 0.6 oz pur e alcohol) occ beer. maybe 2 wk PHQ-2 Answer Date Recorded PHQ Adult Total Score 0 09/23/2023 Hunger Vital Sign Answer Date Recorded Within the past 12 months, y ou worried that your food would run out before you got the money to buy more. Never true 09/23/19 24 Within the past 12 months, t he food you bought just didn't last and you didn't have money to get more. Never true 09/23/2023 Childcare Answer Date Recorded Do you feel overwhelmed with taking care of a child, family member or friend? No 09/23/2023 Does your family need help f inding childcare? (Household - for ages 0-17 years) Not on file 09/23/2023 Clothing Answer Date Recorded Have you been unable to get clothing when it was really needed? No 09/23/2023 Is your family able to get c lothes or diapers when needed? (Household - for ages 0-17 years) Not on file 09/23/2023 Personal Safety Answer Date Recorded Do you feel unsafe or have concerns for your saf ety? No 09/23/2023 Do you have concerns for you r family's safety? (Household - for ages 0-17 years) Not on file 09/23/2023 Utilities Answer Date Recorded Do you have trouble paying y our heating, water, or electric bill? No 09/23/2023 Is your family able to pay t he heat, water, or electric bill? (Household - for ages 0-17 years) Not on file 09/23/2023 Does your family have access to good internet? (Household - for ages 0-17 years) Not on file 09/23/2023 Employment Status Answer Date Recorded Are you unemployed or without regular income? No 09/23/2023 Does the household have a re gular source of income? (Household - for ages 0-17 years) Not on file 09/23/2023 Social Connections Answer Date Recorded How often do you feel lonely or isolated from th ose around you? Never 09/23/2023 Financial Resource Strain Answer Date R ecorded Do you have any trouble payi ng for your medications, or do you think you might in the future? No 09/23/2023 Does your family have troubl e paying for medicine? (Household - for ages 0-17 years) Not on file 09/23/2023 Transportation Needs Answer Date Record ed READ ONLY Do you have troubl e getting a ride to medical visits or work? Never True 09/23/2023 Does your family have a hard time getting a ride to doctors visits? (Household - for ages 0-17 years) Not on file 09/23/2023 Has lack of transportation k ept you from medical appointments, meetings, work, or from getting things needed for daily living? Check all that apply. (Adult - for ages 18 years and over) Not on file 09/23/2023 Do you (or your family) have trouble finding or paying for a ride (transportation)? (Household - for ages 0-17 years) Not on file 09/23/2023 Housing Stability Answer Date Recorded Do you currently live in a s helter or have no steady place to sleep at night? No 09/23/2023 READ ONLY Do you think you a re at risk of becoming homeless? No 09/23/2023 Does your family worry about paying for your home or becoming homeless? (Household - for ages 0-17 years) Not on file 0 09/23/2023 Are you homeless or worried that you might be in the future? (Adult - for ages 18 years and over) Not on file Are you (or your family) benjamin eless or worried that you might be in the future? (Household - for ages 0-17 years) Not on file Food Insecurity Answer Date Recorded Do you need food for this week? No 09/23/2023 Are you able to get enough f ood for your family? (Household - for ages 0-17 years) Not on file 09/23/2023 Does your family need food t his week? (Household - for ages 0-17 years) Not on file 09/23/2023 Do you always have enough fo od for your family? (Household - for ages 0-17 years) Not on file 09/23/2023 Sex and Gender Information Value Date Recorded Sex Assigned at Not on file Gender Identity Not on file Sexual Orientation Straight 10/05/2019 8: 11 AM EDT Job Start Date Occupation Industry Not on file Not on file Not on file documented as of this encounter Functional Status Functional Status Response Date of Assess ment Does this person have seriou s difficulty walking or climbing stairs? Yes 10/11/2022 documented as of this encounter Patient Instructions * Patient Instructions* Cassidy Mccain, [facility] - 11/10/2023 10:42 AM EDT ~~PATIENT INSTRUCTIONS FOR SHINGRIX VACCINE~~ Possible side effects of Shingrix vaccine, (shingles), are usually mild and can include: 1. Soreness or redness at injection site 2. Low grade fever 3. Body aches You may use a fever / pain reducing medication as needed for these symptoms. LET YOUR DOCTOR KNOW IMMEDIATELY IF YOU HAVE DIFFICULTY BREATHING OR SWALLOWING, EXPERIENCE ITCHINGOF FEET OR HANDS, HAVE SWELLING OF EYES, FACE OR INSIDE OF NOSE. documented in this encounter Progress Notes * Cassidy Mccain [facility] - 11/10/2023 10:23 AM EDT Medication Therapy Disease Management Clinic - Medication Reconciliation Phill Shelby is an 82 year old being seen for medication reconciliation. Med Rec Reason: New Patient Prescription insurance information: [employer] Do you have any other prescription coverage: No - above pace threshold Preferred pharmacy: [facility] ([facility]) [x] Problem list reviewed [x] Allergies reviewed and updated if needed [x] Drug interaction check completed [x] HEDIS list addressed Immunizations: Facilitated Administration Of: Shingles Medication Organization/Adherence: Has home care nurse or caregiver: no Patient uses a pill box? Yes, refill(s) completed by self When you are at home, how often do you miss doses of medications? Less than once a week How difficult is it for you to pay for your medications? Not difficult at all How often do you experience side effects from your medications? Never Labs/Vitals/Risk Scores: The ASCVD Risk score (Morales WOODARD, et al., 2019) failed to calculate for the following reasons: The 2019 ASCVD risk score is only valid for ages 40 to 79 BP Readings from Last 3 Encounters: 09/23/23 130/62 05/26/23 140/62 03/17/23 136/68 Recent Labs Units 10/13/23 0956 10/11/22 0902 HEMOGLOBIN A1C - [facility] % 6.1* 6.3* Recent Labs Units 10/13/23 0956 10/11/22 0902 03/20/22 1701 ESTIMATED GLOMERULAR FILTRATION RATE - ISINGER mL/min 46* 47* 39* Serum creatinine: 1.5 mg/dL (H) 10/13/23 0956 Estimated creatinine clearance: 41 mL/min (A) Assessment & Plan: Medication discrepancies identified: updated OTCs to match what patient taking Dose/frequency of medications appropriate for current renal function? yes Other medication problems identified: low HR, potential need for statin - reports he's been "borderline" for years, recommended repeat lipids. Patient education provided: regarding acetaminophen max dose - patient within limit. - regarding vaccines Referral pended for follow up management of: N/A Summary- Changes & Recommendations: Med rec completed with patient. Adminstered Shingrix vaccine - next dose in 2-6 mos. Cassidy Barrera RP Clinical Pharmacist - Injection Molding Machine Setter Medication Therapy Management Clinic 11/10/2023, 10:23 AM Does the patient have active shingles? No If, yes, patient must wait to receive vaccine till after rash is gone. Does the patient have an illness today with a fever more than 101?F? No Has the patient ever had a serious allergic reaction after receiving a vaccination? No Has the patient had a blood test showing they are not immune to Chicken Pox (rare)? No If yes, should get Chicken pox vaccine instead of shingrix. Verified patient has prescription/drug coverage. Patient has been informed that [employer] copays are close to $0. In most cases copays will be around $10. The maximum co-pay patients may get could as high as $200. not applicable Shingrix Vaccine Information Sheet has been provided. Cassidy Barrera RPh 11/10/2023 10:41 AM IMMUNIZATION ADMINISTRATION DOCUMENTATION Time Out Procedure Performed: Yes Patient Identified (Ask Name/Date of ): Yes Patient allergic to latex?No VFC Stock? No Immunization(s) verified: Yes, Immunization Name: Shingrix, VIS Sheet(s) given: Yes Verified Side and Site: Yes Verified Shot(s) with Parent(s)/Patient: Yes Shingrix was administered per clinic protocol. Patient received the Shingrix VIS (Vaccine Information Sheet). Cassidy Barrera [facility], 11/10/2023, 10:41 AM documented in this encounter Plan of Treatment Upcoming Encounters Date Type Department Care Team (Late st Contact Info) Description 12/12/2023 8:20 AM EDT Anticoagulation Pharmacy, [address] [address] [place] [address] [place] [address] 12/15/2023 9:00 AM EDT Cardiac Studies Cardiology, [facility] [address] [place] [address] Matthew Torres [facility] [address] [place] [address] 03/16/2024 9:20 AM EST Office Visit Family Practice [address] [place] [address] [address] [place] [address] Iliana Lund DO [address] [place] [address] 05/28/2024 8:40 AM EST Office Visit Nephrology, [facility] [address] [place] [address] Ed Martell MD 200 [facility] [place] [address] 05/31/2024 9:45 AM EST Office Visit Dermatology [facility] [place] [address] [place] [address] Harinder Navarrete MD [address] [place] [address] Health Maintenance Due Date Last Done Comments COVID-19 Vaccine (2022- season) 2023 02/11/2023, 09/04/2021, 07/19/2020, Additional history exists Postponed from 04/08/2023 (Patient Declined After Education) Zoster Vaccines (3 of 3) 01/05/2024 11/10/2023, 07/12 Influenza Vaccine (FLU shot) (#1) 2024 02/11/2023, 03/06/2022, 02/21/2021, Additional history exists GFR 04/13/2024 10/13/2023, 0 06/2022, 03/20/2022, Additional history exists DTaP,Tdap,and Td Vaccines (2 - Td or Tdap) 07/06/2024 07/06/2014, 04/29/2008, 05/12/1996 Depression Screening 09/22/2024 09/23/2023 Albumin/Creatinine Ratio 10/12/2024 024, 10/11/2022, 09/09/2016, Additional history exists CKD HGB USE SMARTSET 39890 10/12/202410/12, 10/13/2023, 10/11/2022, Additional history exists CKD PHOS USE SMARTSET 45257 10/12/2024 06/0 07/2023, 10/11/2022, 03/20/2022, Additional history exists HbA1c 10/12/2024 10/13/2023, 06/0 06/2022, 10/17/2021, Additional history exists Pneumococcal Vaccine: 65+ Years Completed 01/05/2015, 06/30/2013, 04/04/2003 GARDASIL-HPV IMMUNIZATION SERIES Aged Out No longer eligible based on patient's age to complete this topic Hepatitis B Aged Out No longer eligi ble based on patient's age to complete this topic MENINGOCOCCAL (MENACTRA/MENVEO) Aged Out No longer eligible based on patient's age to complete this topic documented as of this encounter Medical Devices Implanted Type Area Marketing Communication Manager Device Identifier Shelf Expiration Date Model / Serial / Lot Lens Intraoc 22.0 - [id number] - [id number] Implanted:Qty: 1 on 12/28/2020 by Tru Ace MD at OR [facility] Right: Eye [employer] 03/11/2025 [id number] / [id number] / [id number] Lens Intraoc 22.0 - [id number] - [id number] Implanted:Qty: 1 on 01/04/2021 by Tru Ace MD at OR [facility] Left: Eye [employer] 04/10/2025 [id number] / [id number] / [id number] documented as of this encounter Visit Diagnoses Diagnosis Medication management- Primary Encounter for long-term (current) use of other medications Need for vaccination for zoster Need for prophylactic vaccination and inoculation against other viral diseases documented in this encounter Advance Directives * Full Code (Latest Code Status on File) Date Activated Date Inactivated Comments 07/09/2010 12:12 PM 07/10/2010 6:00 PM This order r eflects the patients wishes and were consensually agreed upon. * Full Code Date Activated Date Inactivated Comments 07/09/2010 6:54 AM 07/09/2010 12:12 PM This order reflects the patients wishes and were consensually agreed upon. Care Teams Substation Superintendent Relationship Specialty Start Date End Date Iliana Lund DO [address] [place] [id number] PCP - General Family Medicine 11/10/23 documented as of this encounter
--- OUTSIDE RECORDS SUMMARY | 2023-11-13 13:46 | External Medical Summary ---
Author Name Unknown Address Unknown Organization K01:LABORATORY [facility] [place] [place] - [address] [place] [address] Laboratory Report Ordering Provider Test Date Status SOHA COURTNEY 10/13/2023 09:56:40 Final Normal: <150 mg/ g creatinine
High: 150-500 mg/g creatinine
Very High: >500 mg/g creatinine
Nephrotic: >3000 mg/g creatinine Observation Date Value Abnormality Reference (Units ) Status Protein/Creatinine [Ratio] in Urine 10/13/2023 09:56:40 280 Above high normal <150 (mg/g ) Final Protein, Urine 10/13/2023 09:56:40 26 (mg/dL) Final Creatinine, Urine 10/13/2023 09:56:40 93 (mg/dL) Final Performing Location LABORATORY [facility] [place] [place] - [address] [place] [address]
--- OUTSIDE RECORDS SUMMARY | 2023-11-13 13:46 | External Medical Summary ---
Author Name Unknown Address Unknown Organization : Laboratory Report Ordering Provider Test Date Status PROSPER WELSH 10/28/2023 08:57:32 Final Therapeutic ranges for non-o perative patients:
Prophylaxsis/treatment of DVT: (Range:2.0-3.0)
Treatment of pulmonary embolism:(Range:2.0-3.0)
Prevention of systemic embolism from:
-tissue heart valves
-acute myocardial infarction
-valvular heart disease
-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
(Range: 2.0-3.0)
Mechanical prosthetic valves: (Range: 2.5-3.5) Observation Date Value Abnormality Reference (Units ) Status INR in Capillary blood by Coagulation assay 10/28/2023 08:57:32 2.9 (INR) Final Performing Location
--- OUTSIDE RECORDS SUMMARY | 2023-11-13 13:46 | External Medical Summary ---
Author Name Unknown Address Unknown Organization [id number]:LAB[facility]ATORY [facility] [place] - [facility] [address] [facility] [address] Laboratory Report Ordering Provider Test Date Status SOHA COURTNEY 10/13/2023 09:56:40 Final Observation Date Value Abnormality Reference (Units ) Status WBC, Total 10/13/2023 09:56:40 9.54 4.00-10.80 (K/uL) Final RBC 10/13/2023 09:56:40 4.49 4.50-5.25 (M/uL) Final Hemoglobin 10/13/2023 09:56:40 13.9 Below low normal 14.0-16.8 (g/dL) Final HCT 10/13/2023 09:56:40 41.3 40.0-48.4 (%) Final MCV 10/13/2023 09:56:40 92.0 82.0-99.5 (fL) Final MCH 10/13/2023 09:56:40 31.0 27.0-34.0 (pg) Final MCHC 10/13/2023 09:56:40 33.7 32.0-36.0 (g/dL) Final RDW 10/13/2023 09:56:40 15.4 11.5-15.5 (%) Final Platelets 10/13/2023 09:56:40 259 140-400 (K/uL) Final MPV 10/13/2023 09:56:40 10.9 6.6-11.1 (fL) Final Nucleated erythrocytes/100 leukocytes [Ratio] in Blood by Automated count 10/13/2023 09:56:40 0 <=0 (/100 WBCs) Final Performing Location LABORATORY [facility] - [address] [place] [address]
--- OUTSIDE RECORDS SUMMARY | 2023-11-13 13:46 | External Medical Summary | Summary of Care ---
Author Name Unknown Organization [facility] Address [address] [place] [address] Phone [phone] Care Team Providers Care Visual Display Manager Name Role Phone Iliana Lund DO Primary Care Provider [phone] Reason for Visit * Reason Comments NEW PATIENT Encounter Details Date Type Department Care Team (Late st Contact Info) Description 11/10/2023 10:40 AM EDT Office Visit Family Practice [address], [place] [address] [place] [address] Iliana Lund DO [address] [place] [address] Permanent 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 (HCC)*; Cardiac pacemaker in situ; Elevated uric acid in blood; Prediabetes; Risk and functional assessment Allergies Active Allergy Reactions Criticality Noted Date Comments Parish Inhibitors Cough Medium 05/14/2011 Penicillins 01/30/1999 rash documented as of this encounter (statuses as of 11/12/2023) Medications Medication Sig Dispensed Refills Start Date End Date Status MULTIVITAMIN/IRON 60 MG PO CHEW Take 1 Tablet by mouth in the morning. Active PreserVision AREDS 2 Oral Capsule Take 1 Capsule by mouth in the morning and 1 Capsule before bedtime. 30 Cap 04/10/2020 Active CPAP every night at bedtime. 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 180 Tablet 10/08/2023 Active amLODIPine Besylate 10 MG Oral Tablet (Norvasc)Indications :Essential hypertension with goal blood pressure less than 140/90 Take 1 Tablet by mouth daily. 90 Tablet 10/08/2023 Active documented as of this encounter (statuses as of 11/12/2023) Active Problems Problem Noted Date Diagnosed Date 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 09/23/2023 Idiopathic chronic gout of multiple sites withou t tophus 10/17/2021 Hx of nonmelanoma skin cancer 04/23/2021 [...] apnea) 07/06/2014 CPAP (continuous positive airway pressure) arlin hernandez 07/06/2014 Elevated uric acid in blood 05/10/2014 History of prostatectomy 07/09/2010 Overview: Robotic at [facility] [place] [place] Dr Beck for BPH Dyslipidemia, goal to be determined 04/29/2008 FAM HX-DIABETES MELLITUS 03/26/2002 IMPOTENCE, ORGANIC ORIGN documented as of this encounter (statuses as of 11/12/2023) Resolved Problems Problem Noted Date Diagnosed Date [...] as of this encounter (statuses as of 11/12/2023) Immunizations Name Administration Dates Next Due COVID-19 [...] Date Smoking Tobacco: Never Smokeless Tobacco: Never Tobacco Cessation:Counseling Given: Yes Comments:smoke 100 cigs as a teenager Alcohol [...] 09/23/2023 Does the household have a re lar source of income? (Household - for ages [...] on file documented as of this encounter Last Filed Vital Signs Vital Sign Reading Time Taken Comments Blood Pressure 140/62 11/10/2023 10:43 AM EDT Pulse 68 11/10/2023 10:43 AM EDT Temperature 35.7 C (96.3 F) 11/10/2023 10:43 AM E DT Respiratory Rate 12 11/10/2023 10:43 AM EDT Oxygen Saturation 98% 11/10/2023 10:43 AM EDT Inhaled Oxygen Concentration - - Weight 88.5 kg (195 lb) 11/10/2023 10:43 AM EDT Height 172.1 cm (5' 7.75") 11/10/2023 10:43 AM E DT Body Mass Index 29.87 11/10/2023 10:43 AM EDT documented in this encounter Functional Status Functional Status Response Date of Assess ment Does this person have seriou s difficulty walking or climbing stairs? Yes 10/11/2022 documented as of this encounter Patient Instructions * Patient Instructions* Janet GlaserANNI - 11/10/2023 10:40 AM EDT Patient Instructions - Fall Prevention (This education is for all patients over 65 regardless of symptoms) Remember to take your current medications as prescribed. In order to prevent falls, you are encouraged to: Exercise Utilize assistive/adaptive devices Avoid multifocal lenses when walking Avoid hazards in home Maintain a regular toileting schedule Any questions please contact our office. Preventing Falls in the Home (This education is for all patients over 65 regardless of symptoms) As you get older, falls are more likely. Thats because your reaction time slows. Your muscles and joints may also get stiffer, making them less flexible. Illness, medications, and vision changes can also affect your balance. A fall could leave you unable to live on your own. To make your home safer, follow these tips: Floors Put nonskid pads under area rugs Remove throw rugs Replace worn floor coverings Tack carpets firmly to each step on carpeted stairs. Put nonskid strips on the edges of uncarpeted stairs Keep floors and stairs free of clutter and cords Arrange furniture so there are clear pathways Clean up any spills right away Bathrooms Install grab bars in the tub or shower Apply nonskid strips or put a nonskid rubber mat in the tub or shower Sit on a bath chair to bathe Use bathmats with nonskid backing Lighting Keep a flashlight in each room Put a nightlight along the pathway between the bedroom and the bathroom January Patient Education Copyright 2008 - 2010 January except where otherwise noted Preventing Falls: Exercises to Improve Balance, Flexibility, Strength, and Staying Power (This education is for all patients over 65 regardless of symptoms) Certain types of exercises may help make you less likely to fall. Try the ones below. Or do other exercises that your healthcare provider suggests. Depending on your health, you may need to start slowly. Dont let that stop you. Even small amounts of exercise can help you. Be sure to talk to yourhealthcare provider before starting any exercise program. Improve Balance Many types of exercise can help improve balance. Pavan chi and yoga are good examples. Heres another one to try. You can do it anytime and almost anywhere. Stand next to a counter or solid support. Push yourself up onto your tiptoes. Hold for 5 seconds. If you start to lose your balance, hold on to the counter. Rest and repeat 5 times. Work up to holding for 20 to 30 seconds, if you can. Increase Flexibility Being more flexible makes it easier for you to move around safely. Try exercises like the seated hamstring stretch. Sit in a chair and put one foot on a stool. Straighten your leg and reach with both hands down either side of your leg. Reach as far down your leg as you can. Hold for about 20 seconds. Go back to the starting position. Then repeat 5 times. Switch legs. Build Strength Resistance exercises help build strength. You can do them without equipment. Or you can use weights, elastic bands, or special machines. One such exercise is called the biceps curl. You can hold a 1 pound weight or even a can of soup. Do this exercise at least 3 times a week. Strive for everyday. Sit up straight in a chair. Keep your elbow close to your body and your wrist straight. Bend your arm, moving your hand up to your shoulder. Then slowly lower your arm. Repeat 5 times. Switch to the other arm. Build Your Staying Power Aerobic exercises make your heart and lungs stronger so you can keep moving longer. Walking and swimming are two of the best types of exercises you can do. Using a stationary bike is great, too. Find an aerobic exercise that you enjoy. Start slowly and build up. Even 5 minutes is helpful. Aimfor a goal of 30 minutes, at least 3 times a week. You dont have to do 30 minutes in one session. Break it up and walk a little throughout the day. More Helpful Tips Start easy. Slowly work up to doing more. Talk with your healthcare provider about the best exercises for you. Call senior centers or health clubs about exercise programs. If needed, have a family member watch you walk every so often to check your stability. Exercise with a friend. Choose an activity you both enjoy. Try exercises that you can do anytime, anywhere. Here are two examples. Have someone with you when you first try these: Practice walking by placing one foot right in front of the other. Stand up and sit down 10 times. Repeat this throughout the day. January Patient Education Copyright 2009 - 2010 January except where otherwise noted. Preventing Falls: Moving Safely Using a Cane or Walker (This education is for all patients over 65 regardless of symptoms) Keep the cane away from your feet so you dont trip. A walking aid, such as a cane or walker, can help you stay more independent and avoid falls. Remember to keep your walking aid within easy reach when youre in a chair or in bed. And learn how to use it safely so you dont injure yourself. Using a Cane If you have a stronger side, hold the cane on that side. Get your balance. Move the cane and your weaker leg forward. Support your weight on both the cane and your weaker side. Step with your stronger leg. Start again from step 1. If youre using a folding walker, be sure you know how to lock it open. Check that its locked open before each use. Using a Walker Roll the walker (or lift it, if youre using one without wheels) forward about 12 inches. Step forward with your weaker leg first. Use the walker to help keep your balance. Bring your other foot forward to the center of the walker. Start again from step 1. Helpful Tips Check with your healthcare provider about the right walking aid to use. Ask about a walker with a seat attached. Check the tips of your cane or walker to make sure they have nonskid covers. Move slowly from room to room. Dont yoon. Sit down to get dressed. Use a ayad pack or backpack to keep your hands free. Get help for jobs that mean climbing, even on a stepstool. January Patient Education Copyright 2008 - 2010 January except where otherwise noted. Treating Urinary Incontinence in Men (This education is for all patients over 65 regardless of symptoms) You can't always control the release of urine. You may leak urine. Or you may not be able to hold your urine until you can get to a bathroom. This is called urinary incontinence. The problem can be managed. Talk to your doctor about your treatment options. Taking Medications Prescription medications may help you. They may: Help the sphincter to work better. (This is the muscle that closes to keep urine from leaking out of the bladder.) Help stop the bladder from dheeraj too often to push urine out. Help the bladder muscles contract with more force. Help relax the sphincter muscle and allow urine to flow more freely. Making Changes to Your Routine Certain changes in your daily routine may help. These include: Avoiding caffeine and alcohol. Using timed voiding. This is following a schedule for drinking fluids and urinating. Doing Kegel exercises daily. These exercises involve tightening the muscles in your sphincter and around your bladder to help strengthen them. Your doctor can explain how to do them. Using a Catheter A catheter is a narrow tube that is inserted through the urethra into the bladder. It drains urine.A condom catheter covers the penis. It channels urine into a collection bag. It is worn most of thetime. Intermittent catheterization means inserting a catheter to drain the bladder, then removing it. This is done on a regular schedule. Having Surgery If other options don't work, surgery may be recommended. If surgery is an option, your healthcare provider can discuss it with you and explain its risks and benefits. Healing After Prostate Surgery Surgery on the prostate gland can cause incontinence. Most often, the incontinence is only for a short time. It clears up when healing is complete. Very rarely, prostate surgery can result in permanent incontinence. documented in this encounter Progress Notes * Iliana Lund, - 11/10/2023 11:00 AM EDT SUBJECTIVE: Chief Complaint Patient presents with NEW PATIENT HPI: Phill Shelby is a 82 year old male who presents today to establish care. Pt was previously seen at [facility]. Pt notes that he has pain in his feet. He notes that by the end of the day, they are worse. It can feel like needles going to them. He does not use anything for it. It does not limit him. Some swelling on occasion. No numbness. This has gone for years, at least 5. They seem to feel fine in the morning. He may have pain across the top of his foot but it is mostly the bottom of his foot. 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 PreserVision AREDS 2 Oral Capsule Take 1 Capsule by mouth in the morning and 1 Capsule before bedtime. 30 Cap 0 CPAP every night at bedtime. Chlorthalidone 25 MG Oral Tablet (Hygroton) TAKE ONE TABLET BY MOUTH EVERY MORNING 100 Tablet 2 Losartan Potassium 25 MG Oral Tablet (Cozaar) TAKE ONE TABLET BY MOUTH EVERY MORNING 90 Tablet 1 Warfarin Sodium 2.5 MG Oral Tablet (Coumadin) Take 1 Tablet by mouth daily DIRECTED BY ANTICOAG CLINIC 90 Tablet 0 Allopurinol 100 MG Oral Tablet (Zyloprim) Take 2 Tablets by mouth in the morning. 180 Tablet 0 amLODIPine Besylate 10 MG Oral Tablet (Norvasc) Take 1 Tablet by mouth daily. 90 Tablet 0 Acetaminophen 500 MG Oral Tablet (Tylenol) Take 2 Tablets by mouth as needed (back pain). Zoster Vac Recomb Adjuvanted 50 MCG/0.5ML Intramuscular Suspension Reconstituted (Shingrix) Inject 0.5 mL into a large muscle 1 Each 0 No current facility-administered medications for this visit. Past Medical History: Diagnosis Date BPH with obstruction/lower urinary tract symptoms 11/14/2009 BPH without obstruction/lower urinary tract symptoms proscar since 1998, stopped 2004 CKD (chronic kidney disease) stage 3, GFR 30-59 ml/min ([facility]) 2013 CPAP (continuous positive airway pressure) dependence 07/06/2014 Dyslipidemia, goal to be determined 04/29/2008 Elevated C-reactive protein (CRP) 04/18 CRP (C-REACTIVE PROTEIN) ELEVATED Elevated prostate specific antigen (PSA) 2006 ELEVATED PSA Elevated uric acid in blood 05/10/2014 Enlarged aorta (HCC) 07/13/2015 07/13/2015 2.8 cm repeat in one year. HTN, goal below 140/90 age 19 treated since 1986 Impotence of organic origin MAI (obstructive sleep apnea) 07/06/2014 Sleep apnea 07/2002 Dr Booker Past Surgical History: Procedure Laterality Date ARTHROPLASTY KNEE TOTAL Left 12/21/2019 COLONOSCOPY, GI REFERRAL OP 05/15/2006 normal repeat in 10 years NEEDLE/PUNCH BIOPSY OF PROSTATE 03/22/2010 BIOPSY PROSTATE NEEDLE performed by CLAUDETTE BECK at [facility] PROSTATECTOMY, RETROPUBIC RADICAL, LAP 07/09/2010 ROBOTIC LAPAROSCOPIC PROSTATECTOMY RETROPUBIC RADICAL performed by CLAUDETTE BECK at [facility] REMOVE CATARACT, INSERT LENS PROSTH Left 01/04/2021 LEFT EXTRACAPSULAR CATARACT REMOVAL WITH INTRAOCULAR LENS performed by Tru Ace MD at OR [facility] REMOVE CATARACT, INSERT LENS PROSTH Right 12/28/2020 RIGHT EXTRACAPSULAR CATARACT REMOVAL WITH INTRAOCULAR LENS performed by Tru Ace MD at OR [facility] REPAIR OF HYDROCELE 05/12/1974 SIGMOIDOSCOPY, DIAGNOSTIC 04/14/2001 normal, Dr Carvajal US ECHO TRANSRECTAL/PROSTATE 03/22/2010 ULTRASOUND TRANSRECTAL performed by CLAUDETTE BECK at [facility] US TRANSRECTAL AND BIOPSY 12/06/2009 nodular hyperplasia Review of patient's allergies indicates: Allergen Reactions Parish Inhibitors Cough Penicillins rash Family History Problem Relation Name Age of Onset Cancer Father bladder ca Hypertension Mother Heart Disorder Mother cabg @ age 70 Hypertension Brother Diabetes Brother NIDDM Diabetes Brother NIDDM Family Status Relation Status Fa at age 86 cancer of bladder Mo at age 80 CABG at age 70, stroke with surgery at age 80 Susan Alive Susan Alive Son Alive Sis at age 66 rheumatoid arthritis age 30 Sis Alive Sis Alive Sis Alive Bro at age 82 BPH, cancer bladder Bro at age 78 lung cancer smoker Bro Alive Bro Alive NIDDM Bro Alive NIDDM Bro (Not Specified) Bro (Not Specified) Bro (Not Specified) Social History Tobacco Use Smoking status: Never Smokeless tobacco: Never Tobacco comments: smoke 100 cigs as a teenager Substance Use Topics Alcohol use: Yes Alcohol/week: 0.0 standard drinks of alcohol Comment: occ beer. maybe 2 wk Vaping/E-Cigarette Use Vaping/E-Cigarette Use Never User Vaping/E-Cigarette Substances Nicotine No Other No Flavoring No THC No Cannabidiol (CBD) No Vaping/E-Cigarette Devices Disposable No Pre-filled or Refillable Cartridge No Refillable Tank No Pre-filled Pod No REVIEW OF SYSTEMS: Review of Systems Constitutional: Negative for chills, fatigue, fever and unexpected weight change. HENT: Negative for congestion, ear pain, sinus pain and sore throat. Eyes: Negative for pain, discharge and visual disturbance. Respiratory: Negative for cough, chest tightness, shortness of breath and wheezing. Cardiovascular: Negative for chest pain, palpitations and leg swelling. Gastrointestinal: Negative for abdominal pain, constipation, diarrhea, nausea and vomiting. Musculoskeletal: Negative for arthralgias, gait problem and joint swelling. Skin: Negative for color change, pallor and rash. Hematological: Negative for adenopathy. OBJECTIVE: BP 140/62 (BP Site: Left Arm, BP Position: Sitting, BP Cuff Size: Large) | Pulse 68 | Temp 35.7 C(96.3 F) (Tympanic) | Resp 12 | Ht 1.721 m (5' 7.75") | Wt 88.5 kg (195 lb) | SpO2 98% | BMI 29.87 kg/m | BSA 2.06 m PHYSICAL EXAM: Physical Exam Constitutional: General: He is not in acute distress. Appearance: He is well-developed. HENT: Head: Normocephalic and atraumatic. Right Ear: Tympanic membrane, ear canal and external ear normal. Left Ear: Tympanic membrane, ear canal and external ear normal. Nose: Nose normal. No mucosal edema or rhinorrhea. Mouth/Throat: Pharynx: No oropharyngeal exudate. Eyes: General: No scleral icterus. Conjunctiva/sclera: Conjunctivae normal. Pupils: Pupils are equal, round, and reactive to light. Neck: Thyroid: No thyromegaly. Cardiovascular: Rate and Rhythm: Normal rate and regular rhythm. Heart sounds: No murmur heard. No friction rub. No gallop. Pulmonary: Effort: No respiratory distress. Breath sounds: Normal breath sounds. No wheezing, rhonchi or rales. Chest: Chest wall: No tenderness. Abdominal: General: Bowel sounds are normal. Palpations: Abdomen is soft. There is no mass. Tenderness: There is no abdominal tenderness. There is no guarding. Musculoskeletal: General: No tenderness or deformity. Normal range of motion. Cervical back: Normal range of motion and neck supple. Lymphadenopathy: Cervical: No cervical adenopathy. Skin: General: Skin is warm and dry. Findings: No rash. Neurological: Mental Status: He is alert and oriented to person, place, and time. Cranial Nerves: No cranial nerve deficit. Psychiatric: Speech: Speech normal. Behavior: Behavior normal. Thought Content: Thought content normal. ASSESSMENT/PLAN: (I48.21) Permanent 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 (HCC) (primary encounter diagnosis) (Z95.0) Cardiac pacemaker in situ Plan: Pt will continue to follow with cardiology. No changes. Due for f/u in March. (E79.0) Elevated uric acid in blood Plan: pt will remain on allopurinol. No changes for now. (R73.03) Prediabetes Plan: A1C ok. Will continue to monitor periodically. (Z13.9) Risk and functional assessment Plan: See nursing note. Follow-up: 4 months Total time today including reviewing chart before the visit, pertinent labs, imaging reports, face to face time, and documentation time was 34 minutes. Iliana Lund DO * Janet Glaser LPN - 11/10/2023 10:40 AM EDT Fall Risk Plan of Care Documentation: - Current medications reconciled Patient encouraged to: - Exercise - Provide education materials for Core strengthening - Utilize assistive/adaptive devices - Provide education materials - Avoid multifocal lenses when walking - Avoid hazards in home - Provide education materials - Maintain a regular toileting schedule Janet Glaser LPN 11/10/2023 documented in this encounter Nursing Notes * Janet Glaser LPN - 11/10/2023 10:41 AM EDT Patient here to establish as a new patient. Reports ongoing pain in both feet for years. documented in this encounter Plan of Treatment Upcoming Encounters Date Type Department Care Team (Late st Contact Info) Description 12/12/2023 8:20 AM EDT [facility] [place] [address] [facility] [address] [place], [facility] [address] [facility] [address] 12/15/2023 9:00 AM EDT Cardiac Studies Cardiology, [facility] [address] [facility] [address] [facility] [place] [address] [facility] [place] [address] 03/16/2024 9:20 AM EST Office Visit Family Practice [address] [place] [address] [address] [place] [address] Iliana Lund DO [address] [facility] [place] [address] 05/28/2024 8:40 AM EST Office Visit Nephrology, [facility] [address] [facility] [place] [address] Ed Martell MD [address] [place] [address] 05/31/2024 9:45 AM EST Office Visit Dermatology [facility] [address] [facility] [place] [address] Harinder Navarrete MD [address] [place] [address] Health Maintenance Due Date Last Done Comments COVID-19 Vaccine ( season) 2023 02/11/2023, 09/04/2021, 07/19/2020, Additional history exists Zoster Vaccines (3 of 3) 01/05/2024 11/10/2023, 07/12 Influenza Vaccine (FLU shot) (#1) 2024 02/11/2023, 03/06/2022, 02/21/2021, Additional history exists GFR 04/13/2024 10/13/2023, 0606/2022, 03/20/2022, Additional history exists DTaP,Tdap,and Td Vaccines (2 - Td or Tdap) 07/06/2024 07/06/2014, 04/29/2008, 05/12/1996 Depression Screening 09/22/2024 09/23/2023 Albumin/Creatinine Ratio 10/12/2024 024, 10/11/2022, 09/09/2016, Additional history exists CKD HGB USE SMARTSET 81840 10/12/202410/12, 10/13/2023, 10/11/2022, Additional history exists CKD PHOS USE SMARTSET 14347 10/12/2024 060 07/2023, 10/11/2022, 03/20/2022, Additional history exists HbA1c 10/12/2024 10/13/2023, 06/2022, 10/17/2021, Additional history exists Pneumococcal Vaccine: 65+ Years Completed 01/05/2015, 06/30/2013, 04/04/2003 HPV (Gardasil) Vaccine Aged Out No lo nger eligible based on patient's age to complete this topic Hepatitis B Vaccine Aged Out No longe r eligible based on patient's age to complete this topic MENINGOCOCCAL (MENACTRA/MENVEO) Aged Out No longer eligible based on patient's age to complete this topic documented as of this encounter Medical Devices Implanted Type Area Rope Tow Operator Device Identifier Shelf Expiration Date Model / Serial / Lot Lens Intraoc 22.0 - [id number] - [id number] Implanted:Qty: 1 on 12/28/2020 by Tru Ace MD at OR [facility] Right: Eye [employer] 03/11/2025 [id number] / [id number] / [id number] Lens Intraoc 22.0 - [id number] - [id number] Implanted:Qty: 1 on 01/04/2021 by Tru Ace MD at OR [facility] Left: Eye [employer] 04/10/2025 [id number] / [id number] / [id number] documented as of this encounter Visit Diagnoses Diagnosis Permanent 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 (HCC)- Primary Atrial fibrillation Cardiac pacemaker in situ Elevated uric acid in blood Other abnormal blood chemistry Prediabetes Other abnormal glucose Risk and functional assessment Screening for unspecified condition documented in this encounter Advance Directives * [...] and were consensually agreed upon. Care Teams Visual Display Manager Relationship Specialty Start Date End Date Iliana Lund DO [address] [facility] [place] [address] PCP - General Family Medicine 11/10/23 documented as of this encounter
--- OUTSIDE RECORDS SUMMARY | 2023-11-13 13:46 | External Medical Summary | Summary of Care ---
Author Name Unknown Organization [facility] Address [address] [place] [address] Phone [phone] Care Team Providers Care Roll Edge Machine Operator Name Role Phone William Arreola DO Primary Care Provider [phone] Reason for Visit * Reason Comments Dosage Adjustment In Person (Anticoag Cl inic) Encounter Details Date Type Department Care Team (Latest Contact Info) Description 10/28/2023 8:50 AM EDT Anticoagulation Pharmacy, [address] [address] [facility] [address] [place] [address] Anticoagulation management encounter*; Permanent 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 (HCC) Allergies Active Allergy Reactions Criticality Noted Date Comments Parish Inhibitors Cough Medium 05/14/2011 Penicillins 01/30/1999 rash documented as of this encounter (statuses as of 10/28/2023) Medications Medication Sig Dispensed Refills Start Date End Date Status MULTIVITAMIN/IRON 60 MG PO CHEW None Entered Active Acetaminophen ER 650 MG Oral Tablet Extended Release Take 1 Tablet by mouth every 8 hours as needed for Pain (left knee). Active PreserVision AREDS 2 Oral Capsule Take [...] as of this encounter (statuses as of 10/28/2023) Active Problems Problem Noted Date Diagnosed Date [...] History of prostatectomy 07/09/2010 Overview: Robotic at [facility] Dr Beck for BPH Dyslipidemia, goal to be determined 04/29/2008 FAM HX-DIABETES MELLITUS 03/26/2002 IMPOTENCE, ORGANIC ORIGN documented as of this encounter (statuses as of 10/28/2023) Resolved Problems Problem Noted Date Diagnosed Date [...] as of this encounter (statuses as of 10/28/2023) Immunizations Name Administration Dates Next Due COVID-19 [...] older)(Boostrix) 07/06/2014 Varicella Zoster Vaccine (Adult) 08/08/2009 documented as of this encounter Social History [...] money to get more. Never true 09/23/2023 Sex and Gender Information Value Date [...] Yes 10/11/2022 documented as of this encounter Progress Notes * Daiana Donaldson, [facility] - 10/28/2023 8:54 AM EDT Medication Therapy Disease Management - Anticoagulation Patient: Phill Shelby | : 1940 Subjective Patient-Reported Symptoms: Patient Findings Negatives: Signs/symptoms of thrombosis, Signs/symptoms of bleeding, Change in health, Change in alcohol use, Change in activity, Upcoming invasive procedure, Missed doses, Extra doses, Change in medications, Change in diet/appetite, Bruising Objective Current Warfarin Dose As of 10/28/2023 Warfarin maintenance plan: 2.5 mg (2.5 mg x 1) every day INR Result As of 10/28/2023 INR goal: 2.0-3.0 INR used for dosin.9 (10/28/2023) Assessment & Plan Warfarin Plan As of 10/28/2023 Full warfarin instructions: 2.5 mg every day No change documented: Daiana Donaldson RPh Next INR check: 12/12/2023 Repeat PT/INR in 6 week(s) Weekly dose: not changed Additional Dosing Information: Description PACE information provided 10/11/22 Daiana Donaldson RPh Clinical Pharmacist 10/28/2023, 8:54 AM documented in this encounter Plan of Treatment Upcoming Encounters Date Type Department Care Team (Late st Contact Info) Description 11/10/2023 10:20 AM EDT Pharmacy Family Practice [address] [place] [phone] College, Pharmacist [address] [place] [address] 11/10/2023 10:40 AM EDT Office Visit Family Practice 65 [facility] 293 [place] [phone] Iliana Lund DO 293 [place] [address] 12/12/2023 8:20 AM EDT Anticoagulation Pharmacy, [place] [address] [facility] [place] [place] [address] [place] [address] [facility] [place] [address] 12/15/2023 9:00 AM EDT Cardiac Studies Cardiology, [facility] [address] [facility] [place] [address] [facility] 132 [place] [address] 05/28/2024 8:40 AM EST Office Visit Nephrology, [facility] [address] [place] [address] Ed Martell MD [address] [facility] [place] [address] 05/31/2024 9:45 AM EST Office Visit Dermatology [facility] [place] [address] [facility] [place] [address] Harinder Navarrete MD [address] [place] [address] Scheduled Orders Name Type Priority Associated Diagnoses Orde r Schedule PT INR Lab Routine Permanent 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 (HCC) Anticoagulation management encounter 26 Occurrences starting 10/28/2023 until 10/27/2024 INR FINGERSTICK, POINT OF CARE Point of Care Testing - Unsolicited Results STAT Permanent 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 (HCC) Anticoagulation management encounter Every 2 Weeks for 26 Occurrences starting 10/28/2023 until 10/27/2024 Health Maintenance Due Date Last Done Comments Zoster Vaccines (2 of 3) 10/03/2009 08/08/2009 COVID-19 Vaccine ( season) 2023 02/11/2023, 09/04/2021, 07/19/2020, Additional history exists GFR 04/13/2024 10/13/2023, 0606/2022, 03/20/2022, Additional history exists DTaP,Tdap,and Td Vaccines (2 - Td or Tdap) 07/06/2024 07/06/2014, 04/29/2008, 05/12/1996 Depression Screening 09/22/2024 09/23/2023 Albumin/Creatinine Ratio 10/12/2024 024, 10/11/2022, 09/09/2016, Additional history exists CKD HGB USE SMARTSET 11896 10/12/202410/12, 10/13/2023, 10/11/2022, Additional history exists CKD PHOS USE SMARTSET 24178 10/12/2024 06/0 07/2023, 10/11/2022, 03/20/2022, Additional history exists HbA1c 10/12/2024 10/13/2023, 06/2022, 10/17/2021, Additional history exists Pneumococcal Vaccine: 65+ Years Completed 01/05/2015, 06/30/2013, 04/04/2003 Influenza Vaccine (FLU shot) Completed 07/2022, 03/06/2022, 02/21/2021, Additional history exists GARDASIL-HPV IMMUNIZATION SERIES Aged Out No longer eligible based on patient's age to complete this topic Hepatitis B Aged Out No longer eligi ble based on patient's age to complete this topic MENINGOCOCCAL (MENACTRA/MENVEO) Aged Out No longer eligible based on patient's age to complete this topic documented as of this encounter Medical Devices Implanted Type Area Shredded Filler Machine Wrapper Layer Device Identifier Shelf Expiration Date Model / Serial / Lot Lens Intraoc 22.0 - [id number] - [id number] Implanted:Qty: 1 on 12/28/2020 by Tru Ace MD at OR [facility] Right: Eye BAUSCH & LOMB 03/11/2025 [id number] / [id number] / [id number] Lens Intraoc 22.0 - [id number] - [id number] Implanted:Qty: 1 on 01/04/2021 by Tru Ace MD at OR [facility] Left: Eye BAUSCH & LOMB 04/10/2025 [id number] / [id number] / [id number] documented as of this encounter Procedures Procedure Name Priority Date/Time Associated Diagnosis Comments INR FINGERSTICK, POINT OF CARE SANTHOSH 10/28/2023 8:57 AM EDT documented in this encounter Results * INR FINGERSTICK, POINT OF CARE (10/28/2023 8:57 AM EDT) Fingerstick INR 2.9 INR 8:59 AM EDT [facility]- Blood 10/28/2023 8:57 AM EDT 10/28/2023 8:59 AM EDT Narrative [facility]- - 10/28/2023 8:59 AM EDT Therapeutic ranges for non-operative patients: Prophylaxsis/treatment of DVT: (Range:2.0-3.0) Treatment of pulmonary embolism:(Range:2.0-3.0) Prevention of systemic embolism from: -tissue heart valves -acute myocardial infarction -valvular heart disease -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 (Range: 2.0-3.0) Mechanical prosthetic valves: (Range: 2.5-3.5) [facility] POINT OF CARE TEST DOCKED DEVICE UNSOLICITED RESULTS Performing Organization Address City/State/[facility] Co de Phone Number [phone] [place] [address] documented in this encounter Visit Diagnoses Diagnosis Anticoagulation management encounter- Primary Encounter for therapeutic drug monitoring Permanent 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 (HCC) Atrial fibrillation documented in this encounter Advance Directives * [...] and were consensually agreed upon. Care Teams Roll Edge Machine Operator Relationship Specialty Start Date End Date William Arreola DO [address] [place] [address] PCP - General Family Medicine 7/27/17 documented as of this encounter"
--- OUTSIDE RECORDS SUMMARY | 2023-11-13 13:46 | External Medical Summary ---
Author Name Unknown Address Unknown Organization [id number]:[facility] [place] [place] [address] [place] [address] Laboratory Report Ordering Provider Test Date Status DANNY HUERTA 10/13/2023 09:56:40 Final Observation Date Value Abnormality Reference (Units ) Status Iron 10/13/2023 09:56:40 61 45-176 (ug /dL) Final Iron-binding capacity 10/13/2023 09:56:40 275 250-425 (ug/dL) Final Transferrin Sat % 10/13/2023 09:56:40 22 15 -55 (%) Final Performing Location [facility] [place] [place] [address] [place] [address]
--- OUTSIDE RECORDS SUMMARY | 2023-11-13 13:46 | External Medical Summary ---
Author Name Unknown Address Unknown Organization [id number]:[facility] [place] [address] [facility] [address] [place] [address] Laboratory Report Ordering Provider Test Date Status SOHA COURTNEY 10/13/2023 09:56:40 Final Observation Date Value Abnormality Reference (Units ) Status Color of Urine by Auto 10/13/2023 09:56:40 Light Yellow Colorless, Light Yellow, Yellow, Dark Yellow Final Clarity, Urine 10/13/2023 09:56:40 Clear Clear Final Glucose [Mass/volume] in Urine by Automated test strip 10/13/2023 09:56:40 Negative Negative (mg/dL) Final Bilirubin.total [Presence] in Urine by Automated test strip 10/13/2023 09:56:40 Negative Negative Final Ketones [Mass/volume] in Urine by Automated test strip 10/13/2023 09:56:40 Negative Negative (mg/dL) Final Specific gravity, Urine 10/13/2023 09:56:40 1.019 1.003-1.030 Final Hemoglobin [Presence] in Urine by Automated test strip 10/13/2023 09:56:40 Negative Negative Final pH, Urine 10/13/2023 09:56:40 6.5 5.0-7.5 (Units) Final Protein [Mass/volume] in Urine by Automated test strip 10/13/2023 09:56:40 Trace Abnormal Negative (mg/dL) Final Urobilinogen [Mass/volume] in Urine by Automated test strip 10/13/2023 09:56:40 Normal Normal (mg/dL) Final Nitrite [Presence] in Urine by Automated test strip 10/13/2023 09:56:40 Negative Negative Final Leukocyte esterase [Presence] in Urine by Automated test strip 10/13/2023 09:56:40 Negative Negative Final RBC, Urine 10/13/2023 09:56:40 0-2 0-2 (/HPF) Final WBC, Urine 10/13/2023 09:56:40 0-2 0-2 (/HPF) Final Bacteria [#/area] in Urine sediment by Microscopy high power field 10/13/2023 09:56:40 0-25 0-25 (/HPF) Final Performing Location [facility] [place] [facility] [place] [address] [facility] [address]
--- OUTSIDE RECORDS SUMMARY | 2023-11-13 13:46 | External Medical Summary ---
Author Name Unknown Address Unknown Organization [id number]:LABORATORY [facility] [place] [place] - [address] [facility] [address] Laboratory Report Ordering Provider Test Date Status DANNY HUERTA 10/13/2023 09:56:40 Final Observation Date Value Abnormality Reference (Units ) Status HbA1C 10/13/2023 09:56:40 6.1 Above high normal 4. 0-5.6 (%) Final The use of HbA1c to monitor glycemic status is based on normal hemoglobin and HbA composition. This test should not be used in patients with abnormal hemoglobin that affects the half life of the red blood cell or the in vivo glycation rates. Glucose, estimated average 10/13/2023 09:56:40 128 Above high normal <126 (mg/dL) Nicola chen Performing Location LABORATORY [facility] [place] [place] - [address] [facility] [address] [facility] [address]
--- OUTSIDE RECORDS SUMMARY | 2023-11-13 13:46 | External Medical Summary | Summary of Care ---
Author Name Unknown Organization [facility] Address [address] [facility] [address] Phone [phone] Care Team Providers Care Certified Pediatric Nurse Practitioner Name Role Phone William Arreola DO Primary Care Provider [phone] Reason for Visit * Reason Onset Date Comments Test Results 10/14/2023 Encounter Details Date Type Department Care Team (Late st Contact Info) Description 10/14/2023 Telephone NephrologyToro [address] [place] [address] Ed Martell MD 200 [place] [address] Test Results Allergies Active Allergy Reactions Criticality Noted Date Comments Parish Inhibitors Cough Medium 05/14/2011 Penicillins 01/30/1999 rash documented as of this encounter (statuses as of 10/14/2023) Medications Medication Sig Dispensed Refills Start Date [...] Tablet (Coumadin)Indication s:Anticoagulation management encounter,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),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 Take 1 [...] as of this encounter (statuses as of 10/14/2023) Active Problems Problem Noted Date Diagnosed Date [...] apnea) 07/06/2014 CPAP (continuous positive airway pressure) depsamanta hernandez 07/06/2014 Elevated uric acid in blood 05/10/2014 History of prostatectomy 07/09/2010 Overview: Robotic at [facility] Dr Beck for BPH Dyslipidemia, goal to be determined 04/29/2008 FAM HX-DIABETES MELLITUS 03/26/2002 IMPOTENCE, ORGANIC ORIGN documented as of this encounter (statuses as of 10/14/2023) Resolved Problems Problem Noted Date Diagnosed Date [...] as of this encounter (statuses as of 10/14/2023) Immunizations Name Administration Dates Next Due COVID-19 [...] Yes 10/11/2022 documented as of this encounter Miscellaneous Notes * Telephone Encounter - Kait Benitez RN - 10/14/2023 12:31 PM EDT Te with pt's regarding stable lab results and no changes. * Telephone Encounter - Kait Benitez RN - 10/14/2023 12:31 PM EDT ----- Message from Ed Martell MD sent at 10/14/2023 11:52 AM EDT ----- Labs stable. Continue same documented in this encounter Plan of Treatment Upcoming Encounters Date Type Department Care Team (Late st Contact Info) Description 10/28/2023 8:50 AM EDT Anticoagulation Pharmacy, [place] [address] [place] [address] [place] [facility] [place] [address] 11/10/2023 10:20 AM EDT Pharmacy Family Practice 65 [facility] 293 [place] [phone] College, Pharmacist [address] [address] 11/10/2023 10:40 AM EDT Office Visit Family Practice 65 [facility] 293 [place] [phone] Iliana Lund DO 293 [facility] [place] [address] 12/15/2023 9:00 AM EDT Cardiac Studies Cardiology, [facility] [address] [facility] [address] [facility] 132 [facility] [place] [address] 05/28/2024 8:40 AM EST Office Visit Nephrology, [facility] 200 [facility] [place], [place] [address] Ed Martell MD 200 [facility] [place], [place] [address] 05/31/2024 9:45 AM EST Office Visit Dermatology [facility] [place] [address] [facility] [place] [address] Harinder Navarrete MD [address] [facility] [place], [place] [address] Health Maintenance Due Date Last Done Comments Zoster Vaccines (2 of 3) 10/03/2009 08/08/2009 COVID-19 Vaccine (2022- season) 2023 02/11/2023, 09/04/2021, 07/19/2020, Additional history exists GFR 04/13/2024 10/13/2023, 0 06/2022, 03/20/2022, Additional history exists DTaP,Tdap,and Td Vaccines (2 - Td or Tdap) 07/06/2024 07/06/2014, 04/29/2008, 05/12/1996 Depression Screening 09/22/2024 09/23/2023 Albumin/Creatinine Ratio 10/12/2024 024, 10/11/2022, 09/09/2016, Additional history exists CKD HGB USE SMARTSET 57755 10/12/202410/12, 10/13/2023, 10/11/2022, Additional history exists CKD PHOS USE SMARTSET 99775 10/12/2024 06/0 07/2023, 10/11/2022, 03/20/2022, Additional history exists HbA1c 10/12/2024 10/13/2023, 060 06/2022, 10/17/2021, Additional history exists Pneumococcal Vaccine: [...] this encounter Medical Devices Implanted Type Area Pearl Restorer Device Identifier Shelf Expiration Date Model / Serial / Lot Lens Intraoc 22.0 - [id number] - [id number] Implanted:Qty: 1 on 12/28/2020 by Tru Ace MD at OR [facility] Right: Eye BA[employer]CH [employer] LOMB 03/11/2025 [id number] / [id number] / [id number] Lens Intraoc 22.0 - [id number] - [id number] Implanted:Qty: 1 on 01/04/2021 by Tru Ace MD at OR [facility] Left: Eye BAUSCH & LOMB 04/10/2025 [id number] / [id number] / [id number] documented as of this encounter Advance Directives * Full Code (Latest Code Status on File) Date Activated Date Inactivated Comments 07/09/2010 12:12 PM 07/10/2010 6:00 PM This order r eflects the patients wishes and were consensually agreed upon. * Full Code Date Activated Date Inactivated Comments 07/09/2010 6:54 AM 07/09/2010 12:12 PM This order reflects the patients wishes and were consensually agreed upon. Care Teams Certified Pediatric Nurse Practitioner Relationship Specialty Start Date End Date William Arreola DO [facility] [place] [address] PCP - General Family Medicine 12/05/16 documented as of this encounter
--- OUTSIDE RECORDS SUMMARY | 2023-11-13 13:46 | External Medical Summary ---
Author Name Unknown Address Unknown Organization K01:LAB[facility]ATORY [facility] [place] - [facility] [address] [place] [address] Laboratory Report Ordering Provider Test Date Status KIMBER ANNE 10/13/2023 09:56:40 Final Observation Date Value Abnormality Reference (Units ) Status BUN 10/13/2023 09:56:40 35 Above high normal 6-20 (mg/dL) Final Creatinine 10/13/2023 09:56:40 1.5 Above high normal 0.6-1.2 (mg/dL) Final Glomerular filtration rate/1.73 sq M.predicted [Volume Rate/Area] in Serum, Plasma or Blood by Creatinine-based formula (CKD-EPI) 10/13/2023 09:56:40 46 Below low normal >=60 (mL/min) Final eGFR is calculated based on the CKD-EPI 2020 equation Sodium 10/13/2023 09:56:40 136 135-146 (m mol/L) Final Potassium 10/13/2023 09:56:40 4.0 3.5-5.1 (m mol/L) Final Cl 10/13/2023 09:56:40 98 98-107 (mm ol/L) Final CO2 10/13/2023 09:56:40 23 22-32 (mmo l/L) Final Anion gap 10/13/2023 09:56:40 15 7-15 (mmol /L) Final Glucose 10/13/2023 09:56:40 98 70-120 (mg /dL) Final Calcium 10/13/2023 09:56:40 9.4 8.4-10.2 ( mg/dL) Final Albumin 10/13/2023 09:56:40 4.3 3.8-5.0 (g /dL) Final Phosphate 10/13/2023 09:56:40 2.5 2.5-4.8 (m g/dL) Final Performing Location [facility]ORY [facility] [place] - [address] [facility] [address] [place] [address]
--- OUTSIDE RECORDS SUMMARY | 2023-11-13 13:46 | External Medical Summary ---
Author Name Unknown Address Unknown Organization K01:LABORATORY [facility] [place] - [address] [place] [address] Laboratory Report Ordering Provider Test Date Status LUIS ENRIQUE WALTER 10/13/2023 09:56:40 Final Observation Date Value Abnormality Reference (Units ) Status MYCODE SPECIMEN-SST 10/13/2023 09:56:40 Freezing of extracted DNA, whole blood and/or serum. Final Performing Location LABORATORY [facility] [place] - [address] [place] [address]
--- OUTSIDE RECORDS SUMMARY | 2023-11-13 13:46 | External Medical Summary ---
Author Name Unknown Address Unknown Organization K01:[facility]ORY [facility] [place] - [address] [place] [address] Laboratory Report Ordering Provider Test Date Status SOHA COURTNEY 10/13/2023 09:56:40 Final Deficient: <20 ng/mL
Ins ufficient: 20-29 ng/mL
Recommended/Optimum:30-50 ng/mL

Vitamin D intoxication is rare. If suspicious of Vitamin D toxicity, evaluation of serum Calcium and PTH is recommended. Observation Date Value Abnormality Reference (Units ) Status 25-OH Vitamin D total 10/13/2023 09:56:40 46 >19 (ng/mL) Final Performing Location LABORATORY C - [address] [place] [address]
--- OUTSIDE RECORDS SUMMARY | 2023-11-13 13:46 | External Medical Summary ---
Author Name Unknown Address Unknown Organization K01:LABORATORY [facility] [place] [place] - [address] [place] [address] Laboratory Report Ordering Provider Test Date Status LUIS ENRIQUE WALTER 10/13/2023 09:56:40 Final Observation Date Value Abnormality Reference (Units ) Status MYCODE SPECIMEN-SST 10/13/2023 09:56:40 Freezing of extracted DNA, whole blood and/or serum. Final Performing Location LABORATORY [facility] [place] [place] - [address] [place] [address]
--- OUTSIDE RECORDS SUMMARY | 2023-11-13 13:46 | External Medical Summary | Summary of Care ---
Author Name Unknown Organization [facility] Address [address] [place] [address] Phone [phone] Care Team Providers Care Person Investigator Name Role Phone William Arreola DO Primary Care Provider [phone] Reason for Visit * Reason Comments Outpatient Testing Encounter Details Date Type Department Care Team (Late st Contact Info) Description 10/13/2023 10:10 AM EDT Laboratory Laboratory, [place] [address] [place] [address] [place], Laboratory [address] [place] [address] Stage 3b chronic kidney disease (HCC); HTN, goal below 140/90; Hypertensive kidney disease with stage 3b chronic kidney disease; Prediabetes; MyCode Research Other*[id number]; Chronic kidney disease, stage 3b (HCC); Restless legs syndrome Allergies Active Allergy Reactions Criticality Noted Date Comments Parish Inhibitors Cough Medium 05/14/2011 Penicillins 01/30/1999 rash documented as of this encounter (statuses as of 10/13/2023) Medications Medication Sig Dispensed Refills Start Date [...] Tablet (Coumadin)Indication s:Anticoagulation management encounter,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),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 Take 1 [...] as of this encounter (statuses as of 10/13/2023) Active Problems Problem Noted Date Diagnosed Date [...] History of prostatectomy 07/09/2010 Overview: Robotic at [facility] Dr Beck for BPH Dyslipidemia, goal to be determined 04/29/2008 FAM HX-DIABETES MELLITUS 03/26/2002 IMPOTENCE, ORGANIC ORIGN documented as of this encounter (statuses as of 10/13/2023) Resolved Problems Problem Noted Date Diagnosed Date [...] as of this encounter (statuses as of 10/13/2023) Immunizations Name Administration Dates Next Due COVID-19 [...] Yes 10/11/2022 documented as of this encounter Plan of Treatment Upcoming Encounters Date Type Department Care Team (Late st Contact Info) Description 10/28/2023 8:50 AM EDT Anticoagulation Pharmacy, [place] [address] [facility], [place] [address] [place] [facility] [address] [place] [address] 11/10/2023 10:20 AM EDT Pharmacy Family Practice [address] [facility] [address] [place] [phone] College, Pharmacist [address] [place] [address] 11/10/2023 10:40 AM EDT Office Visit Family Practice [address] [place] [address] [place] [phone] Iliana Lund DO [address] [place] [address] 12/15/2023 9:00 AM EDT Cardiac Studies Cardiology, [facility] [address] [place] [address] [facility] [address] [place] [address] 05/28/2024 8:40 AM EST Office Visit Nephrology, [facility] [address] [place] [address] Ed Martell MD [address] [place] [address] 05/31/2024 9:45 AM EST Office Visit Dermatology [address] [place] [address] [place] [address] Harinder Navarrete MD [address] [place] [id number] Pending Results Name Type Priority Associated Diagnoses Date /Time RENAL FUNCTION PANEL Lab Routine Stage 3b chronic kidney disease (HCC) HTN, goal below 140/90 10/13/2023 9:56 AM EDT HEMOGLOBIN A1C Lab Routine Prediabetes 10/13/2023 9:56 AM EDT MYCODE SUBSEQUENT ADULT Lab Routine MyCode Research Other*[id number] 10/13/2023 9:56 AM EDT CBC WITH WBC DIFFERENTIAL Lab Routine Stage 3b chronic kidney disease ([facility]) 10/13/2023 9:56 AM EDT PTH Lab Routine Stage 3b chronic kidney disease ([facility]) 10/13/2023 9:56 AM EDT URINALYSIS WITH MICROSCOPIC EXAM Lab Routine Stage 3b chronic kidney disease ([facility]) 10/13/2023 9:56 AM EDT PROTEIN/ CREATININE RATIO, URINE Lab Routine Stage 3b chronic kidney disease ([facility]) 10/13/2023 9:56 AM EDT MAGNESIUM Lab Routine Stage 3b chronic kidney disease ([facility]) 10/13/2023 9:56 AM EDT 25-HYDROXY VITAMIN D Lab Routine Stage 3b chronic kidney disease (HCC) 10/13/2023 9:56 AM EDT ALBUMIN / CREATININE RATIO, URINE Lab Routine Chronic kidney disease, stage 3b ([facility]) 10/13/2023 9:56 AM EDT IRON SCREEN, INCLUDING TIBC Lab Routine Restless legs syndrome 10/13/2023 9:56 AM EDT MYCODE SST1 Lab Routine MyCode Research Other*[id number] 10/13/2023 9:56 AM EDT MYCODE SST2 Lab Routine MyCode Research Other*[id number] 10/13/2023 9:56 AM EDT CBC Lab Routine Stage 3b chronic kidney disease (HCC) 10/13/2023 9:56 AM EDT DIFFERENTIAL, AUTOMATED Lab Routine Stage 3b chronic kidney disease (HCC) 10/13/2023 9:56 AM EDT Health Maintenance Due Date Last Done Comments Zoster Vaccines (2 of 3) 10/03/2009 08/08/2009 COVID-19 Vaccine ( season) 2023 02/11/2023, 09/04/2021, 07/19/2020, Additional history exists GFR 04/12/2023 10/11/2022, 01/2022, 10/17/2021, Additional history exists Albumin/Creatinine Ratio 10/12/2023 023, 09/09/2016, 07/11/2015, Additional history exists CKD HGB USE SMARTSET 10658 10/12/202310/11, 03/20/2022, 03/20/2022, Additional history exists CKD PHOS USE SMARTSET 55162 10/12/20230 06/2022, 03/20/2022, 10/17/2021, Additional history exists HbA1c 10/12/2023 10/11/2022, 12/2021, 10/17/2020, Additional history exists DTaP,Tdap,and Td Vaccines (2 - Td or Tdap) 07/06/2024 07/06/2014, 04/29/2008, 05/12/1996 Depression Screening 09/22/2024 09/23/2023 Pneumococcal Vaccine: 65+ Years Completed 01/05/2015, 06/30/2013, [...] this encounter Medical Devices Implanted Type Area Security Operations Specialist Device Identifier Shelf Expiration Date Model / Serial / Lot Lens Intraoc 22.0 - [id number] - [id number] Implanted:Qty: 1 on 12/28/2020 by Tru Ace MD at OR [facility] Right: Eye [employer]OMB 03/11/2025 [id number] / [id number] Lens Intraoc 22.0 - [id number] - [id number] Implanted:Qty: 1 on 01/04/2021 by Tru Ace MD at OR [facility] Left: Eye [employer] LOMB 04/10/2025 [id number] / [id number] documented as of this encounter Visit Diagnoses Diagnosis Stage 3b chronic kidney disease (HCC) HTN, goal below 140/90 Unspecified essential hypertension Hypertensive kidney disease with stage 3b chronic kidney disease Prediabetes Other abnormal glucose MyCode Research Other*[id number] Chronic kidney disease, stage 3b (HCC) Restless legs syndrome Restless legs syndrome (RLS) documented in this encounter Advance Directives * [...] and were consensually agreed upon. Care Teams Person Investigator Relationship Specialty Start Date End Date William Arreola DO [address] [place] [address] PCP - General Family Medicine 12/05/16 documented as of this encounter
--- OUTSIDE RECORDS SUMMARY | 2023-11-13 13:47 | External Medical Summary | Summary of Care ---
Author Name Unknown Organization [facility] Address [address] [facility] [address] Phone [phone] Care Team Providers Care Wine Maker Name Role Phone William Arreola DO Primary Care Provider [phone] Reason for Visit * Reason Comments Return Visit Chronic Kidney Disease (CKD) Hypertension Encounter Details Date Type Department Care Team (Late st Contact Info) Description 05/26/2023 11:40 AM EST Office Visit Nephrology, [place] [address] [place] [address] Ed Martell MD 200 [facility] [place] [address] Stage 3b chronic kidney disease (HCC)*; HTN, goal below 140/90 Allergies Active Allergy Reactions Criticality Noted Date Comments Parish Inhibitors Cough Medium 05/14/2011 Penicillins 01/30/1999 rash documented as of this encounter (statuses as of 05/26/2023) Medications Medication Sig Dispensed Refills Start Date End Date Status MULTIVITAMIN/IRON 60 MG PO CHEW None Entered 0 Active Acetaminophen ER 650 MG Oral Tablet Extended Release Take 1 Tablet by mouth every 8 hours as needed for Pain (left knee). 0 Active PreserVision AREDS 2 Oral Capsule Take 1 Capsule by mouth in the morning and 1 Capsule before bedtime. 30 Cap 0 04/10/2020 Active CPAP every night at bedtime. 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 Take 1 Tablet by mouth daily DIRECTED BY ANTICOAG CLINIC 90 Tablet 1 01/27/2023 Active Losartan Potassium 25 MG Oral Tablet (Cozaar)Indications: Essential hypertension with goal blood pressure less than 140/90 TAKE ONE TABLET BY MOUTH EVERY MORNING 90 Tablet 1 02/28/2023 Active Chlorthalidone 25 MG Oral Tablet (Hygroton)Indication s:Hypertensive kidney disease with chronic kidney disease stage III (HCC) TAKE ONE TABLET BY MOUTH EVERY MORNING 100 Tablet 2 03/18/2023 03/17/2024 Active Allopurinol 100 MG Oral Tablet (Zyloprim)Indication s:Elevated uric acid in blood Take 2 Tablets by mouth in the morning. 180 Tablet 1 04/16/2023 Active amLODIPine Besylate 10 MG Oral Tablet (Norvasc)Indications :Essential hypertension with goal blood pressure less than 140/90 Take 1 Tablet by mouth daily. 90 Tablet 1 04/16/2023 Active documented as of this encounter (statuses as of 05/26/2023) Active Problems Problem Noted Date Diagnosed Date Idiopathic chronic gout of multiple sites withou [...] goal blood pressure less than 140/90 03/07/2016 Enlarged aorta 07/13/2015 Overview: 07/13/2015 2.8 cm repeat in one year. MAI (obstructive sleep apnea) 07/06/2014 CPAP (continuous positive airway pressure) arlin hernandez 07/06/2014 Elevated uric acid in blood 05/10/2014 History of prostatectomy 07/09/2010 Overview: Robotic at [facility] Dr Beck for BPH Dyslipidemia, goal to be determined 04/29/2008 FAM HX-DIABETES MELLITUS 03/26/2002 IMPOTENCE, ORGANIC ORIGN documented as of this encounter (statuses as of 05/26/2023) Resolved Problems Problem Noted Date Diagnosed Date Resolved Date Hypertensive kidney disease with chronic kidney disease stage III 09/04/2018 03/23/2020 Overview: Per CKD protocol BPH with obstruction/lower u rinary tract symptoms [...] as of this encounter (statuses as of 05/26/2023) Immunizations Name Administration Dates Next Due COVID-19 [...] Date Recorded PHQ Adult Total Score 0 10/11/2022 Hunger Vital Sign Answer Date Recorded Worried About Running Out of Food in the Last Ye ar Never true 10/05/2019 Ran Out of Food in the Last Year Never true 10/05/2019 Sex and Gender Information Value Date Recorded Sex Assigned at Not on file Gender Identity Not on file Sexual Orientation Straight 10/05/2019 8: 11 AM EDT Job Start Date Occupation Industry Not on file Not on file Not on file documented as of this encounter Last Filed Vital Signs Vital Sign Reading Time Taken Comments Blood Pressure 140/62 05/26/2023 11:37 AM EST Pulse - - Temperature 36.4 C (97.6 F) 05/26/2023 11:[address] Respiratory Rate 18 05/26/2023 11:37 AM EST Oxygen Saturation 94% 05/26/2023 11:37 AM EST Inhaled Oxygen Concentration - - Weight 89.4 kg (197 lb) 05/26/2023 11:37 AM EST Height - - Body Mass Index 29.61 10/11/2022 8:50 AM EDT documented in this encounter Functional Status Functional Status Response Date of Assess ment Does this person have dwaynemt s difficulty walking or climbing stairs? Yes 10/11/2022 documented as of this encounter Progress Notes * Ed Martell MD - 05/26/2023 11:45 AM EST Chief Complaint Patient presents with Return Visit Chronic Kidney Disease (CKD) Hypertension SUBJECTIVE: HPI:Patient is a 82 year old male with HTN since age 17 (Losartan and lastly Amlodipine). Been on all these for many years.No DM, No vascular heart Dz, NO childhood renal Dz. had Pacemaker 07/2018. Also has Chronic Atrial fib on coumadin. But normal heart otherwise. Since last visit --- Denies any recent hospitalizations, procedures or infections. Feels great. No acute symptoms at all. No new health issues or meds. Bp has been controlled but does report bpwas high during her previous healthcare visit but better on recheck. Does have a bp machine at homebut does not check all the time NSAID No Renal Stone No Herbal Medication Preservision, MV Urinary Complaints No HISTORY: Current Outpatient Medications Medication Sig Dispense Refill MULTIVITAMIN/IRON 60 MG PO CHEW None Entered Acetaminophen ER 650 MG Oral Tablet Extended Release Take 1 Tablet by mouth every 8 hours as neededfor Pain (left knee). PreserVision AREDS 2 Oral Capsule Take 1 Capsule by mouth in the morning and 1 Capsule before bedtime. 30 Cap 0 CPAP every night at bedtime. Warfarin Sodium 2.5 MG Oral Tablet (Coumadin) Take 1 Tablet by mouth daily DIRECTED BY ANTICOAG CLINIC 90 Tablet 1 Losartan Potassium 25 MG Oral Tablet (Cozaar) TAKE ONE TABLET BY MOUTH EVERY MORNING 90 Tablet 1 Chlorthalidone 25 MG Oral Tablet (Hygroton) TAKE ONE TABLET BY MOUTH EVERY MORNING 100 Tablet 2 Allopurinol 100 MG Oral Tablet (Zyloprim) Take 2 Tablets by mouth in the morning. 180 Tablet 1 amLODIPine Besylate 10 MG Oral Tablet (Norvasc) Take 1 Tablet by mouth daily. 90 Tablet 1 No current facility-administered medications for this visit. Review of patient's allergies indicates: Allergen Reactions Parish Inhibitors Cough Penicillins rash Past Medical History: Diagnosis Date BPH with obstruction/lower urinary tract symptoms 11/14/2009 BPH without obstruction/lower urinary tract symptoms proscar since 1998, stopped 2004 CKD (chronic kidney disease) stage 3, GFR 30-59 ml/min ([facility]) 2013 CPAP (continuous positive airway pressure) dependence [...] PROSTATE NEEDLE performed by CLAUDETTE BECK at [facility] PROSTATECTOMY, RETROPUBIC RADICAL, LAP 07/09/2010 ROBOTIC LAPAROSCOPIC PROSTATECTOMY RETROPUBIC RADICAL performed by CLAUDETTE BECK at [facility] REMOVE CATARACT, INSERT LENS PROSTH Left 01/04/2021 LEFT EXTRACAPSULAR CATARACT REMOVAL WITH INTRAOCULAR LENS performed by Tru Ace MD at OR [facility] REMOVE CATARACT, INSERT LENS PROSTH Right 12/28/2020 RIGHT EXTRACAPSULAR CATARACT REMOVAL WITH INTRAOCULAR LENS performed by Tru Ace MD at OR [facility] REPAIR OF HYDROCELE 05/12/1974 SIGMOIDOSCOPY, DIAGNOSTIC 04/14/2001 normal, Dr Carvajal US ECHO TRANSRECTAL/PROSTATE 03/22/2010 ULTRASOUND TRANSRECTAL performed by CLAUDETTE BECK at [facility] US TRANSRECTAL AND BIOPSY 12/06/2009 nodular hyperplasia Family History Problem Relation Age of Onset Cancer Father bladder ca Hypertension Mother Heart Disorder Mother cabg @ age 70 Hypertension Brother Diabetes Brother NIDDM Diabetes Brother NIDDM Social History Socioeconomic History Marital status: Spouse name: Julieth Number of children: 3 Years of education: 12 Highest education level: Not on file Occupational History 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 maybe 2 wk Drug use: No Sexual activity: Yes Partners: Female Other Topics Concern Service No Blood Transfusions No Caffeine Concern Not Asked Occupational Exposure Not Asked Hobby Hazards Not Asked Sleep Concern Not Asked Stress Concern Not Asked Weight Concern Not Asked Special Diet Not Asked Back Care Not Asked Exercise Not Asked Bike Helmet Not Asked Seat Belt Not Asked Self-Exams Not Asked Social History Narrative born and raised [place] [facility] [place] [facility] lives in [place] Social Determinants of Health Financial Resource Strain: Not on file Food Insecurity: No Food Insecurity (10/05/2019) Hunger Vital Sign Worried About Running Out of Food in the Last Year: Never true Ran Out of Food in the Last Year: Never true Transportation Needs: Not on file Physical Activity: Not on file Stress: Not on file Social Connections: Not on file Intimate Partner Violence: Not on file Housing Stability: Not on file Ambulation: Without assisted device REVIEW OF SYSTEMS General: No fatigue, No change in weight Head: No significant headache Respiratory: No cough,No wheezing, No shortness of breath Cardiovascular:No chest pain, No palpitations, and No syncope Gastrointestinal: No nausea, vomiting, diarrhea No blood in stools No abdominal pain Urinary: No dysuira, No hematuria. No flank pain Musculoskeletal: No edema Skin: No itching All other systems were reviewed and were negative. OBJECTIVE: There were no vitals taken for this visit. Wt Readings from Last 1 Encounters: 03/17/23 90.7 kg (200 lb) BP 140/62 (BP Site: Right Arm, BP Position: Sitting, BP Cuff Size: Regular) | Temp 36.4 C (97.6 F) (Tympanic) | Resp 18 | Wt 89.4 kg (197 lb) | SpO2 94% | BMI 29.61 kg/m | BSA 2.08 m General appearance: alert, no apparent distress. HEAD: Normocephalic, No masses, lesions, tenderness Respiratory: clear to auscultation, no rhonchi, no wheezes and no crackles Heart: regular rate and regular rhythm Abdomen: abdomen soft, non-tender and no CVA tenderness EXTREMITIES: no edema, Skin: skin color, texture, turgor are normal NEURO: alert & oriented x 3 with fluent speech, no focal motor/sensory deficits No tremor Patient is a reliable historian of events Last 4 BP Readings: BP Readings from Last 4 Encounters: 03/17/23 136/68 11/11/22 140/68 10/23/22 147/66 10/11/22 167/72 Last 3 Weights: Wt Readings from Last 3 Encounters: 03/17/23 90.7 kg (200 lb) 11/11/22 90.2 kg (198 lb 12.8 oz) 10/23/22 90.3 kg (199 lb) Estimated body mass index is 30.06 kg/m as calculated from the following: Height as of 10/11/22: 1.737 m (5' 8.39"). Weight as of 03/17/23: 90.7 kg (200 lb). LABS: Latest Reference Range & Units 09/26/20 10:53 04/16/21 16:26 10/17/21 16:22 03/20/22 17:01 10/11/22 09:02 Sodium 135 - 146 mmol/L 138 138 136 138 138 Potassium 3.5 - 5.1 mmol/L 3.7 3.4 (L) 4.0 4.0 3.5 Chloride 98 - 107 mmol/L 99 98 95 (L) 98 99 CO2 22 - 32 mmol/L 29 25 27 24 24 BUN 6 - 20 mg/dL 32 (H) 31 (H) 36 (H) 33 (H) 36 (H) Creatinine 0.6 - 1.2 mg/dL 1.6 (H) 1.7 (H) 1.6 (H) 1.7 (H) 1.5 (H) Estimated Glomerular Filtration Rate >=60 mL/min 40.7 (L) 38 (L) 44 (L) 39 (L) 47 (L) Anion Gap 7 - 15 mmol/L 10 15 14 16 (H) 15 Glucose 70 - 120 mg/dL 102 108 104 106 111 Calcium 8.4 - 10.2 mg/dL 9.7 9.4 9.5 9.6 9.6 (L): Data is abnormally low (H): Data is abnormally high Latest Reference Range & Units 09/09/16 11:36 10/06/18 08:16 03/29/20 15:04 09/26/20 10:54 10/11/22 09:02 Albumin / Creatinine Ratio, Urine <30 mg/g Creat 120 (H) 121 (H) ALBUMIN / CREATININE RATIO, URINE Rpt ! Rpt ! Protein/ Creatinine Ratio, Urine <150 mg/g 160 (H) 297 (H) PROTEIN/CREAT RATIO <150 mg/g 140 109 ASSESSMENT/PLAN: Stage 3b chronic kidney disease (HCC) (Primary) Non proteinuric CKD stage 3 with slightly improved GFR range around 38 to 48 ml/min range secondaryto longstanding hypertension. Hx of high blood pressure since age 17.Volume status good. Chemistries good. He does not have diabetes or vascular heart disease or any other renal risk factor so his prognosis is still pretty good. Risk of ESRD is very low. Labs can be within the next few months - CBC WITH WBC DIFFERENTIAL; Future; Expected date: 05/26/2023 - PTH; Future; Expected date: 05/26/2023 - URINALYSIS WITH MICROSCOPIC EXAM; Future; Expected date: 05/26/2023 - PROTEIN/ CREATININE RATIO, URINE; Future; Expected date: 05/26/2023 - RENAL FUNCTION PANEL; Future; Expected date: 05/26/2023 - MAGNESIUM; Future; Expected date: 05/26/2023 - 25-HYDROXY VITAMIN D; Future; Expected date: 05/26/2023 HTN, goal below 140/90 Blood pressure is at. Continue same Currently on amlodipine,losartan and chlorthalidone which he is tolerating pretty good together. Ptto monitor bp with log and cuff validation discussed appt. Follow Up: Return in about 6 months (around 11/24/2023) for Clinic Visit. | For: Clinic Visit Ed Martell MD documented in this encounter Plan of Treatment Upcoming Encounters Date Type Department Care Team (Late st Contact Info) Description 06/09/2023 9:40 AM EST Anticoagulation Pharmacy, [place] [address] [place] [facility] [place] [address] [place] [facility] [address] [place] [facility] [place] [address] 09/23/2023 5:00 PM EDT Office Visit Family Practice [facility] [address] [place] [address] William Arreola DO [address] [place] [address] 12/15/2023 9:00 AM EDT Cardiac Studies Cardiology, [facility] [address] [place] [address] Matthew Torres [facility] [address] [place] [address] 01/29/2024 2:00 PM EDT Office Visit Nephrology, [facility] [address] [place] [address] [address] Ed Martell MD 200 [facility] [place] [address] 05/31/2024 9:45 AM EST Office Visit Dermatology [facility] [address] [facility] [place] [address] Harinder Navarrete MD [address] [facility] [place] [address] Scheduled Orders Name Type Priority Associated Diagnoses Orde r Schedule CBC WITH WBC DIFFERENTIAL Lab Routine Stage 3b chronic kidney disease (HCC) Expected: 05/26/2023 (Approximate), Expires: 11/22/2023 PTH Lab Routine Stage 3b chronic kidney disease (HCC) Expected: 05/26/2023 (Approximate), Expires: 11/22/2023 URINALYSIS WITH MICROSCOPIC EXAM Lab Routine Stage 3b chronic kidney disease (HCC) Expected: 05/26/2023 (Approximate), Expires: 11/22/2023 PROTEIN/ CREATININE RATIO, URINE Lab Routine Stage 3b chronic kidney disease (HCC) Expected: 05/26/2023 (Approximate), Expires: 11/22/2023 RENAL FUNCTION PANEL Lab Routine Stage 3b chronic kidney disease (HCC) Expected: 05/26/2023 (Approximate), Expires: 11/22/2023 MAGNESIUM Lab Routine Stage 3b chronic kidney disease (HCC) Expected: 05/26/2023 (Approximate), Expires: 11/22/2023 25-HYDROXY VITAMIN D Lab Routine Stage 3b chronic kidney disease (HCC) Expected: 05/26/2023 (Approximate), Expires: 11/22/2023 Health Maintenance Due Date Last Done Comments Zoster Vaccines (2 of 3) 10/03/2009 08/08/2009 COVID-19 Vaccine ( season) 2023 02/11/2023, 09/04/2021, 07/19/2020, Additional history exists GFR 04/12/2023 10/11/2022, 01/2022, 10/17/2021, Additional history exists Albumin/Creatinine Ratio 10/12/2023 023, 09/09/2016, 07/11/2015, Additional history exists CKD HGB USE SMARTSET 55965 10/12/202310/11, 03/20/2022, 03/20/2022, Additional history exists CKD PHOS USE SMARTSET 48203 10/12/2023 060 06/2022, 03/20/2022, 10/17/2021, Additional history exists Depression Screening 10/12/2023 10/11/2022 HbA1c 10/12/2023 10/11/2022, 0 12/2021, 10/17/2020, Additional history exists DTaP,Tdap,and Td Vaccines (2 - Td or Tdap) 07/06/2024 07/06/2014, 04/29/2008, 05/12/1996 Pneumococcal Vaccine: 65+ Years Completed 01/05/2015, 06/30/2013, [...] this encounter Medical Devices Implanted Type Area Trouble Tracer Device Identifier Shelf Expiration Date Model / Serial / Lot Lens Intraoc 22.0 - [id number] - [id number] Implanted:Qty: 1 on 12/28/2020 by Tru Ace MD at OR [facility] Right: Eye [employer] 03/11/2025 [id number] / [id number] / [id number] Lens Intraoc 22.0 - [id number] - [id number] Implanted:Qty: 1 on 01/04/2021 by Tru Ace MD at OR [facility] Left: Eye [employer]OMB 04/10/2025 [id number] / [id number] / [id number] documented as of this encounter Visit Diagnoses Diagnosis Stage 3b chronic kidney disease (HCC)- Primary HTN, goal below 140/90 Unspecified essential hypertension documented in this encounter Advance Directives Latest Code Status on File Code Status Date Activated Date Inactivated Comments Full Code 07/09/2010 12:12 PM 07/10/2010 6:00 PM This order reflects the patients wishes and were consensually agreed upon. Code Status History Code Status Date Activated Date Inactivated Comments Full Code 07/09/2010 6:54 AM 07/09/2010 12:12 PM This order reflects the patients wishes and were consensually agreed upon. Care Teams Wine Maker Relationship Specialty Start Date End Date William Arreola DO [address] [place] [address] PCP - General Family Medicine 12/05/16 documented as of this encounter
--- OUTSIDE RECORDS SUMMARY | 2023-11-13 13:47 | External Medical Summary ---
Author Name Unknown Address Unknown Organization : Laboratory Report Ordering Provider Test Date Status PROSPER WELSH 06/09/2023 09:49:42 Final Therapeutic ranges for non-o perative patients:
Prophylaxsis/treatment of DVT: (Range:2.0-3.0)
Treatment of pulmonary embolism:(Range:2.0-3.0)
Prevention of systemic embolism from:
-tissue heart valves
-acute myocardial infarction
-valvular heart disease
-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
(Range: 2.0-3.0)
Mechanical prosthetic valves: (Range: 2.5-3.5) Observation Date Value Abnormality Reference (Units ) Status INR in Capillary blood by Coagulation assay 06/09/2023 09:49:42 2.4 (INR) Final Performing Location
--- OUTSIDE RECORDS SUMMARY | 2023-11-13 13:47 | External Medical Summary | Summary of Care ---
Author Name Unknown Organization [facility] Address [address] [facility] [place] [address] Phone [phone] Care Team Providers Care Channel Process Supervisor Name Role Phone William Arreola DO Primary Care Provider +1 [phone] Encounter Details Date Type Department Care Team (Late st Contact Info) Description 09/23/2023 Result Scan Unspecified Department Quin Yanes DO [address] [facility] [place] [id number] <No scans attached> Allergies Active Allergy Reactions Criticality Noted Date Comments Parish Inhibitors Cough Medium 05/14/2011 Penicillins 01/30/1999 rash documented as of this encounter (statuses as of 09/23/2023) Medications Medication Sig Dispensed Refills Start Date [...] CPAP every night at bedtime. 0 Active Chlorthalidone 25 MG Oral Tablet (Hygroton)Indication [...] mouth daily. 90 Tablet 1 04/16/2023 Active Losartan Potassium 25 MG Oral Tablet (Cozaar)Indications: Essential hypertension with goal blood pressure less than 140/90 TAKE ONE TABLET BY MOUTH EVERY MORNING 90 Tablet 1 08/28/2023 Active Warfarin Sodium 2.5 MG Oral Tablet (Coumadin)Indication s:Anticoagulation management encounter,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),[facility] current use of anticoagulant therapy Take 1 Tablet by mouth daily DIRECTED BY [facility] 90 Tablet 0 08/27/2023 Active documented as of this encounter (statuses as of 09/23/2023) Active Problems Problem Noted Date Diagnosed Date [...] History of prostatectomy 07/09/2010 Overview: Robotic at [facility] [place] Beck for BPH Dyslipidemia, goal to be determined 04/29/2008 FAM HX-DIABETES MELLITUS 03/26/2002 IMPOTENCE, ORGANIC ORIGN documented as of this encounter (statuses as of 09/23/2023) Resolved Problems Problem Noted Date Diagnosed Date [...] as of this encounter (statuses as of 09/23/2023) Immunizations Name Administration Dates Next Due COVID-19 [...] Care Team (Late st Contact Info) Description 09/23/2023 5:00 PM EDT Office Visit Family Practice [facility] [address] [place] [address] William Arreola, DO [address] [facility] [place] [address] 10/28/2023 8:50 AM EDT Anticoagulation Pharmacy, [place] [address] [place] [address] [place], [facility] [address] [place] [facility] [place] [address] 12/15/2023 9:00 AM EDT Cardiac Studies Cardiology, [facility] [address] [place] [address] [facility] [address] [place] [address] 05/28/2024 8:40 AM EST Office Visit Nephrology, [facility] 200 [facility] [place] [address] Ed Martell MD [address] [facility] [place] [address] 05/31/2024 9:45 AM EST Office Visit Dermatology [facility] [address] [facility] [place] [address] Harinder Navarrete MD [address] [facility] [place] [address] Health Maintenance Due Date Last Done Comments Zoster Vaccines (2 of 3) 10/03/2009 08/08/2009 COVID-19 Vaccine ( season) 2023 02/11/2023, 09/04/2021, 07/19/2020, Additional history exists GFR 04/12/2023 10/11/2022, 01/2022, 10/17/2021, Additional history exists Albumin/Creatinine Ratio 10/12/2023 023, 09/09/2016, 07/11/2015, Additional history exists CKD HGB USE SMARTSET 30997 10/12/202310/11, 03/20/2022, 03/20/2022, Additional history exists CKD PHOS USE SMARTSET 56286 10/12/202306/2022, 03/20/2022, 10/17/2021, Additional history exists Depression Screening 10/12/2023 10/11/2022 HbA1c 10/12/2023 10/11/2022, 12/2021, 10/17/2020, Additional history [...] this encounter Medical Devices Implanted Type Area Fireworks Inspector Device Identifier Shelf Expiration Date Model / Serial / Lot Lens Intraoc 22.0 - [id number] - [id number] Implanted:Qty: 1 on 12/28/2020 by Tru Ace MD at OR [facility] Right: Eye [employer] LOMB 03/11/2025 [id number] / [id number] / [id number] Lens Intraoc 22.0 - [id number] - [id number] Implanted:Qty: 1 on 01/04/2021 by Tru Ace MD at OR [facility] Left: Eye BAUSCH & LOMB 04/10/2025 [id number] / [id number] / [id number] documented as of this encounter Procedures Procedure Name Priority Date/Time Associated Diagnosis Comments CARDIOLOGY SCANNED RESULT 09/23/2023 documented in this encounter Results * CARDIOLOGY SCANNED RESULT (09/23/2023) 09/23/2023 Quin RAZA documented in this encounter Advance Directives Latest [...] and were consensually agreed upon. Care Teams Channel Process Supervisor Relationship Specialty Start Date End Date William Arreola DO [address] [place] [address] PCP - General Family Medicine 12/05/16 documented as of this encounter
--- OUTSIDE RECORDS SUMMARY | 2023-11-13 13:47 | External Medical Summary | Summary of Care ---
Author Name Unknown Organization [facility] Address [address] [facility] [address] Phone [phone] Care Team Providers Care Voltage Regulator Assembler Name Role Phone William Arreola DO Primary Care Provider [phone] Reason for Visit * Reason Comments Follow Up 6 month return. Pt d enied any new concerns Encounter Details Date Type Department Care Team (Late st Contact Info) Description 09/23/2023 5:00 PM EDT Office Visit Family Practice [facility] 200 [facility] [place] [address] William Arreola DO [address] [facility] [place] [address] Prediabetes*; 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); Dyslipidemia, goal to be determined; Chronic kidney disease, stage 3b (HCC); Restless legs syndrome Allergies Active Allergy Reactions Criticality Noted Date Comments Parish Inhibitors Cough Medium 05/14/2011 Penicillins 01/30/1999 rash documented as of this encounter (statuses as of 09/29/2023) Medications Medication Sig Dispensed Refills Start Date [...] Tablet (Coumadin)Indication s:Anticoagulation management encounter,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),prison current use of anticoagulant therapy Take 1 Tablet by mouth daily DIRECTED BY [facility] 90 Tablet 08/27/2023 Active documented as of this encounter (statuses as of 09/29/2023) Active Problems Problem Noted Date Diagnosed Date [...] History of prostatectomy 07/09/2010 Overview: Robotic at [facility] Dr Beck for BPH Dyslipidemia, goal to be determined 04/29/2008 FAM HX-DIABETES MELLITUS 03/26/2002 IMPOTENCE, ORGANIC ORIGN documented as of this encounter (statuses as of 09/29/2023) Resolved Problems Problem Noted Date Diagnosed Date [...] as of this encounter (statuses as of 09/29/2023) Immunizations Name Administration Dates Next Due COVID-19 [...] Never Smokeless Tobacco: Never Tobacco Cessation:Counseling Given: Not Answered Comments:smoke 100 cigs as a teenager Alcohol [...] Sign Reading Time Taken Comments Blood Pressure 130/62 09/23/2023 5:00 PM EDT Pulse 62 09/23/2023 5:00 PM EDT Temperature 35.9 C (96.7 F) 09/23/2023 5:00 PM ED T Respiratory Rate - - Oxygen Saturation 97% 09/23/2023 5:00 PM EDT Inhaled Oxygen Concentration - - Weight 90.2 kg (198 lb 12.8 oz) 09/23/2023 5:00 PM EDT Height 173.7 cm (5' 8.39") 09/23/2023 5:00 PM ED T Body Mass Index 29.88 09/23/2023 5:00 PM EDT documented in this encounter Functional Status Functional Status Response Date of Assess ment Does this person have seriou s difficulty walking or climbing stairs? Yes 10/11/2022 documented as of this encounter Progress Notes * William Arreola, DO - 09/23/2023 5:19 PM EDT Subjective: Phill Shelby is a 82 year old male. Chief Complaint Patient presents with Follow Up 6 month return. Pt denied any new concerns HPI: PT here in follow-up. Feeling pretty good. Gets stiffnes here and there. Occasional Tylenol. He gets some restless legs and that works. Less than nce per month. Due for check on kidneys and BG. 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 Dyslipidemia, goal to be determined E78.5 History of prostatectomy Z90.79 Elevated uric acid in blood E79.0 MAI (obstructive sleep apnea) G47.33 CPAP (continuous positive airway pressure) dependence Z99.89 Essential hypertension with goal blood pressure less than 140/90 I10 Permanent 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 (HCC) I48.21 Cardiac pacemaker in situ Z95.0 Prediabetes R73.03 Hypertensive kidney disease with stage 3b chronic kidney disease I12.9, N18.32 Chronic kidney disease, stage 3b (HCC) N18.32 Hx of actinic keratosis Z87.2 Hx of nonmelanoma skin cancer Z85.828 Idiopathic chronic gout of multiple sites without tophus M1A.09X0 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) I48.0 Current Outpatient Medications Medication Sig Dispense Refill [...] Tablet by mouth daily. 90 Tablet 1 Losartan Potassium 25 MG Oral Tablet (Cozaar) TAKE ONE TABLET BY MOUTH EVERY MORNING 90 Tablet 1 Warfarin Sodium 2.5 MG Oral Tablet (Coumadin) Take 1 Tablet by mouth daily DIRECTED BY [facility] 90 Tablet 0 No current facility-administered medications for this visit. Review of patient's allergies indicates: Allergen Reactions Parish Inhibitors Cough Penicillins rash OBJECTIVE: BP 130/62 | Pulse 62 | Temp 35.9 C (96.7 F) (Tympanic) | Ht 1.737 m (5' 8.39") | Wt 90.2 kg (198 lb 12.8 oz) | SpO2 97% | BMI 29.88 kg/m | BSA 2.09 m Estimated body mass index is 29.88 kg/m as calculated from the following: Height as of this encounter: 1.737 m (5' 8.39"). Weight as of this encounter: 90.2 kg (198 lb 12.8 oz). BP Readings from Last 3 Encounters: 09/23/23 130/62 05/26/23 140/62 03/17/23 136/68 Wt Readings from Last 3 Encounters: 09/23/23 90.2 kg (198 lb 12.8 oz) 05/26/23 89.4 kg (197 lb) 03/17/23 90.7 kg (200 lb) ROS: Negative except for above PHYSICAL EXAM: General: alert, healthy, and no distress Head: Normocephalic, No masses, lesions, tenderness or abnormalities Heart: regular rate & rhythm, no murmur, and no gallops Lungs: chest symmetric with normal AP diameter, no chest deformities noted, no chest wall tenderness, lungs clear to auscultation ASSESSMENT/Plan Prediabetes (Primary) - HEMOGLOBIN A1C; Future; Expected date: 09/23/2023 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) Dyslipidemia, goal to be determined Chronic kidney disease, stage 3b (HCC) - BASIC METABOLIC PANEL; Future; Expected date: 09/23/2023 - ALBUMIN / CREATININE RATIO, URINE; Future; Expected date: 09/23/2023 Restless legs syndrome - IRON SCREEN, INCLUDING TIBC; Future; Expected date: 09/23/2023 I spent a total of 30 minutes on the date of service in preparation, delivery, and documentation ofthe care provided to this patient, excluding any time spent on the performance of any procedure or separately billable services. Phill and I had a nice talk on his chronic health and I wished him the best as he transitions to 64Forward. The above was discussed and understanding was expressed. William Arreola DO documented in this encounter Nursing Notes * Sariah Ling MED ASSIST - 09/23/2023 4:58 PM EDT Chief Complaint Patient presents with Follow Up 6 month return. Pt denied any new concerns Patient has been verbally educated on the need or importance of Immunizations: shingles and has declined topic(s). documented in this encounter Plan of Treatment Upcoming Encounters Date Type Department Care Team (Late st Contact Info) Description 10/28/2023 8:50 AM EDT Anticoagulation Pharmacy, [place] [address] [facility] [address] [facility] [address] [facility] [address] 12/15/2023 9:00 AM EDT Cardiac Studies Cardiology, [facility] 132 [facility] [place] [address] [facility] 132 [facility] [place] [address] 05/28/2024 8:40 AM EST Office Visit Nephrology, [facility] 200 [facility] [place], [place] [address] Ed Martell MD 200 [facility] [place], [place] [address] 05/31/2024 9:45 AM EST Office Visit Dermatology [facility] 200 [facility] [place], [place] [address] Harinder Navarrete MD [address] [facility] [place], [place] [address] Scheduled Orders Name Type Priority Associated Diagnoses Orde r Schedule HEMOGLOBIN A1C Lab Routine Prediabetes Expected: 09/23/2023 (Approximate), Expires: 09/22/2024 BASIC METABOLIC PANEL Lab Routine Chronic kidney disease, stage 3b (HCC) Expected: 09/23/2023 (Approximate), Expires: 09/22/2024 ALBUMIN / CREATININE RATIO, URINE Lab Routine Chronic kidney disease, stage 3b (HCC) Expected: 09/23/2023 (Approximate), Expires: 09/22/2024 IRON SCREEN, INCLUDING TIBC Lab Routine Restless legs syndrome Expected: 09/23/2023 (Approximate), Expires: 09/22/2024 Health Maintenance Due Date Last Done Comments Zoster Vaccines (2 of 3) 10/03/2009 08/08/2009 COVID-19 Vaccine ( season) 2023 02/11/2023, 09/04/2021, 07/19/2020, Additional history exists GFR 04/12/2023 10/11/2022, 01/2022, 10/17/2021, Additional history exists Albumin/Creatinine Ratio 10/12/2023 023, 09/09/2016, 07/11/2015, Additional history exists CKD HGB USE SMARTSET 25413 10/12/202310/11, 03/20/2022, 03/20/2022, Additional history exists CKD PHOS USE SMARTSET 20299 10/12/202306/2022, 03/20/2022, 10/17/2021, Additional history exists HbA1c 10/12/2023 10/11/2022, 06/0 12/2021, 10/17/2020, Additional history exists DTaP,Tdap,and Td [...] this encounter Medical Devices Implanted Type Area Book Store Associate Device Identifier Shelf Expiration Date Model / Serial / Lot Lens Intraoc 22.0 - [id number] - [id number] Implanted:Qty: 1 on 12/28/2020 by Tru Ace MD at OR [facility] Right: Eye [employer]CH [employer] LOMB 03/11/2025 [id number] / [id number] / [id number] Lens Intraoc 22.0 - [id number] - [id number] Implanted:Qty: 1 on 01/04/2021 by Tru Ace MD at OR [facility] Left: Eye BAUSCH & LOMB 04/10/2025 [id number] / [id number] / [id number] documented as of this encounter Visit Diagnoses Diagnosis Prediabetes- Primary Other abnormal glucose 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) Atrial fibrillation Dyslipidemia, goal to be determined Other and unspecified hyperlipidemia Chronic kidney disease, stage 3b (HCC) Restless [...] and were consensually agreed upon. Care Teams Voltage Regulator Assembler Relationship Specialty Start Date End Date William Arreola DO [address] [place] [address] PCP - General Family Medicine 12/05/16 documented as of this encounter
--- OUTSIDE RECORDS SUMMARY | 2023-11-13 13:47 | External Medical Summary | Summary of Care ---
Author Name Unknown Organization [facility] Address [address] [facility] [place] [address] Phone [phone] Care Team Providers Care Remediation Project Engineer Name Role Phone William Arreola DO Primary Care Provider [phone] Encounter Details Date Type Department Care Team (Late st Contact Info) Description 09/30/2023 Orders Only PATIENT PORTAL DO NOT DELETE THIS DEPT USED BY [place] [id number] Allergies Active Allergy Reactions Criticality Noted Date Comments Parish Inhibitors Cough Medium 05/14/2011 Penicillins 01/30/1999 rash documented as of this encounter (statuses as of 09/30/2023) Medications Medication Sig Dispensed Refills Start Date [...] Tablet (Coumadin)Indication s:Anticoagulation management encounter,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),extermination inspector current use of anticoagulant therapy Take 1 Tablet by mouth daily DIRECTED BY [facility] 90 Tablet 08/27/2023 Active documented as of this encounter (statuses as of 09/30/2023) Active Problems Problem Noted Date Diagnosed Date [...] History of prostatectomy 07/09/2010 Overview: Robotic at [facility] Dr Beck for BPH Dyslipidemia, goal to be determined 04/29/2008 FAM HX-DIABETES MELLITUS 03/26/2002 IMPOTENCE, ORGANIC ORIGN documented as of this encounter (statuses as of 09/30/2023) Resolved Problems Problem Noted Date Diagnosed Date [...] as of this encounter (statuses as of 09/30/2023) Immunizations Name Administration Dates Next Due COVID-19 [...] Description 10/28/2023 8:50 AM EDT Anticoagulation Pharmacy, [place] [address] [facility] [address] [facility] [address] [facility] [id number] 12/15/2023 9:00 AM EDT Cardiac Studies Cardiology, [facility] 132 [facility] [place] [address] [facility] [address] [place] [address] 05/28/2024 8:40 AM EST Office Visit Nephrology, [facility] 200 [facility] [place], [place] [address] Ed Martell MD 200 [facility] [place] [address] 05/31/2024 9:45 AM EST Office Visit Dermatology [facility] 200 [facility] [place] [address] Harinder Navarrete MD 200 [facility] [place] [address] Health Maintenance Due Date Last Done Comments Zoster Vaccines (2 of 3) 10/03/2009 08/08/2009 COVID-19 Vaccine ( season) 2023 02/11/2023, 09/04/2021, 07/19/2020, Additional history exists GFR 04/12/2023 10/11/2022, 01/2022, 10/17/2021, Additional history exists Albumin/Creatinine Ratio 10/12/2023 023, 09/09/2016, 07/11/2015, Additional history exists CKD HGB USE SMARTSET 40159 10/12/202310/11, 03/20/2022, 03/20/2022, Additional history exists CKD PHOS USE SMARTSET 27765 10/12/202306/2022, 03/20/2022, 10/17/2021, Additional history exists HbA1c [...] this encounter Medical Devices Implanted Type Area Pai Gow Dealer Device Identifier Shelf Expiration Date Model / Serial / Lot Lens Intraoc 22.0 - [id number] - [id number] Implanted:Qty: 1 on 12/28/2020 by Tru Ace MD at OR [facility] Right: Eye BAUSCH [employer] LOMB 03/11/2025 [id number] / [id number] / [id number] Lens Intraoc 22.0 - [id number] - [id number] Implanted:Qty: 1 on 01/04/2021 by Tru Ace MD at OR [facility] Left: Eye BAUSCH & LOMB 04/10/2025 [id number] / [id number] / [id number] documented as of this encounter Advance Directives [...] and were consensually agreed upon. Care Teams Remediation Project Engineer Relationship Specialty Start Date End Date William Arreola DO [address] [place] [address] PCP - General Family Medicine 12/05/16 documented as of this encounter
--- OUTSIDE RECORDS SUMMARY | 2023-11-13 13:47 | External Medical Summary | Summary of Care ---
Author Name Unknown Organization [facility] Address [address] [place] [address] Phone [phone] Care Team Providers Care Manager Editorial Name Role Phone William Arreola DO Primary Care Provider [phone] Reason for Visit * Reason Onset Date Comments Insurance 07/21/2023 65 Fwd - Tour/re quirements Encounter Details Date Type Department Care Team (Late st Contact Info) Description 07/21/2023 Telephone Family Practice [address] [facility] [address] [place] [address] Iliana Lund, [address] [place] [address] Insurance (65 Fwd - Tour/requirements) Allergies Active Allergy Reactions Criticality Noted Date Comments Parish Inhibitors Cough Medium 05/14/2011 Penicillins 01/30/1999 rash documented as of this encounter (statuses as of 07/21/2023) Medications Medication Sig Dispensed Refills Start Date [...] Tablet (Coumadin)Indication s:Anticoagulation management encounter,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),[facility] current use of anticoagulant therapy Take 1 Tablet by mouth daily DIRECTED BY [facility] 90 Tablet 1 01/27/2023 Active Losartan [...] as of this encounter (statuses as of 07/21/2023) Active Problems Problem Noted Date Diagnosed Date [...] History of prostatectomy 07/09/2010 Overview: Robotic at [facility] Dr Beck for BPH Dyslipidemia, goal to be determined 04/29/2008 FAM HX-DIABETES MELLITUS 03/26/2002 IMPOTENCE, ORGANIC ORIGN documented as of this encounter (statuses as of 07/21/2023) Resolved Problems Problem Noted Date Diagnosed Date [...] as of this encounter (statuses as of 07/21/2023) Immunizations Name Administration Dates Next Due COVID-19 [...] encounter Miscellaneous Notes * Telephone Encounter - Jillian Espinosa, MAI - 07/21/2023 12:05 PM EDT Discussed GOLD requirement, patient acknowledges and understands. Pt aware to maintain [facility] gold coverage. Tour done today, 3.11.24 documented in this encounter Plan of Treatment Upcoming Encounters Date Type Department Care Team (Late st Contact Info) Description 09/08/2023 9:00 AM EDT Anticoagulation Pharmacy, [place] [address] [place] [address] [place], [facility] [address] [place] [facility] [place] [address] 09/23/2023 5:00 PM EDT Office Visit Family Practice [facility] [address] [place] [address] William Arreola DO [address] [place] [address] 12/15/2023 9:00 AM EDT Cardiac Studies Cardiology, [facility] 132 [place] [address] Matthew Torres [facility] [address] [place] [address] 01/29/2024 2:00 PM EDT Office Visit Nephrology, [facility] [address] [place] [address] Ed Martell MD [address] [place] [address] 05/31/2024 9:45 AM EST Office Visit Dermatology [facility] [address] [place] [address] Harinder Navarrete MD [address] [place] [address] Health Maintenance Due Date Last Done Comments Zoster Vaccines (2 of 3) 10/03/2009 08/08/2009 COVID-19 Vaccine ( season) 2023 02/11/2023, 09/04/2021, 07/19/2020, Additional history exists GFR 04/12/2023 10/11/2022, 01/2022, 10/17/2021, Additional history exists Albumin/Creatinine Ratio 10/12/2023 023, 09/09/2016, 07/11/2015, Additional history exists CKD HGB USE SMARTSET 35835 10/12/202310/11, 03/20/2022, 03/20/2022, Additional history exists CKD PHOS USE SMARTSET 53169 10/12/2023 0606/2022, 03/20/2022, 10/17/2021, Additional history exists Depression Screening [...] this encounter Medical Devices Implanted Type Area Signs And Displays Sales Representative Device Identifier Shelf Expiration Date Model / Serial / Lot Lens Intraoc 22.0 - [id number] - [id number] Implanted:Qty: 1 on 12/28/2020 by Tru Ace MD at OR [facility] Right: Eye BAUSCH [employer] LOMB 03/11/2025 [id number] / [id number] / [id number] Lens Intraoc 22.0 - [id number] - [id number] Implanted:Qty: 1 on 01/04/2021 by Tru Ace MD at OR [facility] Left: Eye BAUSCH & LOMB 04/10/2025 [id number] / [id number] / [id number] documented as of this encounter Advance Directives Latest Code Status [...] and were consensually agreed upon. Care Teams Manager Editorial Relationship Specialty Start Date End Date William Arreola DO [address] [place] [address] PCP - General Family Medicine 12/05/16 documented as of this encounter
--- OUTSIDE RECORDS SUMMARY | 2023-11-13 13:47 | External Medical Summary | Summary of Care ---
Author Name Unknown Organization [facility] Address [address] [place] [address] Phone [phone] Care Team Providers Care Entry Level Accounting Clerk Name Role Phone William Arreola DO Primary Care Provider [phone] Reason for Visit * Reason Comments Dosage Adjustment In Person (Anticoag Cl inic) Encounter Details Date Type Department Care Team (Latest Contact Info) Description 06/09/2023 9:40 AM EST Anticoagulation Pharmacy, [place] [address] [place] [address] [facility] [address] [place] [address] Permanent 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 (HCC)* Allergies Active Allergy Reactions Criticality Noted Date Comments Parish Inhibitors Cough Medium 05/14/2011 Penicillins 01/30/1999 rash documented as of this encounter (statuses as of 06/09/2023) Medications Medication Sig Dispensed Refills Start Date [...] Tablet (Coumadin)Indication s:Anticoagulation management encounter,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),MCC current use of anticoagulant therapy Take 1 [...] as of this encounter (statuses as of 06/09/2023) Active Problems Problem Noted Date Diagnosed Date [...] History of prostatectomy 07/09/2010 Overview: Robotic at [facility] Dr Beck for BPH Dyslipidemia, goal to be determined 04/29/2008 FAM HX-DIABETES MELLITUS 03/26/2002 IMPOTENCE, ORGANIC ORIGN documented as of this encounter (statuses as of 06/09/2023) Resolved Problems Problem Noted Date Diagnosed Date [...] as of this encounter (statuses as of 06/09/2023) Immunizations Name Administration Dates Next Due COVID-19 [...] as of this encounter Progress Notes * Subha Esquivel, [facility] - 06/09/2023 10:03 AM EST Medication Therapy Disease Management - Anticoagulation Patient: Phill Carrasquillo Malena | : 1940 Subjective Patient-Reported Symptoms: Patient Findings Positives: Missed doses (missed dose on 06/06 due to not having refill) Negatives: Signs/symptoms of thrombosis, Signs/symptoms of bleeding, Change in health, Change in alcohol use, Change in activity, Upcoming invasive procedure, Extra doses, Change in medications, Change in diet/appetite, Bruising Objective Current Warfarin Dose As of 06/09/2023 Warfarin maintenance plan: 2.5 mg (2.5 mg x 1) every day INR Result As of 06/09/2023 INR goal: 2.0-3.0 INR used for dosin.4 (06/09/2023) Assessment & Plan Warfarin Plan As of 06/09/2023 Full warfarin instructions: 2.5 mg every day No change documented: Subha Esquivel RPh Next INR check: 07/21/2023 Repeat PT/INR in 6 week(s) Weekly dose: not changed Additional Dosing Information: Description PACE information provided 10/11/22 - september look to transition pt to eddie Esquivel RPh Clinical Pharmacist 06/09/2023, 10:03 AM documented in this encounter Plan of Treatment Upcoming Encounters Date Type Department Care Team (Late st Contact Info) Description 07/21/2023 9:00 AM EDT [address] [address] [place] [address] [address] [facility] [address] 09/23/2023 5:00 PM EDT Office Visit Family [facility] [address] [place] [address] William Arreola DO [address] [facility] [place] [address] 12/15/2023 9:00 AM EDT Cardiac Studies Cardiology, [facility] [address] [facility] [place] [address] [facility] [address] [facility] [place] [address] 01/29/2024 2:00 PM EDT Office Visit Nephrology, [facility] [address] [place] [address] Ed Martell MD 200 [facility] [place] [address] 05/31/2024 9:45 AM EST Office Visit Dermatology [facility] [place] 200 [facility] [place] [address] Harinder Navarrete MD [address] [facility] [address] [place] [address] Health Maintenance Due Date Last Done Comments Zoster Vaccines (2 of 3) 10/03/2009 08/08/2009 COVID-19 Vaccine ( season) 2023 02/11/2023, 09/04/2021, 07/19/2020, Additional history exists GFR 04/12/2023 10/11/2022, 01/2022, 10/17/2021, Additional history exists Albumin/Creatinine Ratio 10/12/2023 023, 09/09/2016, 07/11/2015, Additional history exists CKD HGB USE SMARTSET 50773 10/12/202310/11, 03/20/2022, 03/20/2022, Additional history exists CKD PHOS USE SMARTSET 98712 10/12/202306/2022, 03/20/2022, 10/17/2021, Additional history exists Depression [...] this encounter Medical Devices Implanted Type Area Special Needs Child Caregiver Device Identifier Shelf Expiration Date Model / Serial / Lot Lens Intraoc 22.0 - [id number] - [id number] Implanted:Qty: 1 on 12/28/2020 by Tru Ace MD at OR [facility] Right: Eye [employer] LOMB 03/11/2025 [id number] / [id number] Lens Intraoc 22.0 - [id number] - [id number] Implanted:Qty: 1 on 01/04/2021 by Tru Ace MD at OR [facility] Left: Eye BAUSCH [employer] LOMB 04/10/2025 [id number] / [id number] / [id number] documented as of this encounter Procedures Procedure Name Priority Date/Time Associated Diagnosis Comments INR FINGERSTICK, POINT OF CARE SANTHOSH 06/09/2023 9:49 AM EST documented in this encounter Results * INR FINGERSTICK, POINT OF CARE (06/09/2023 9:49 AM EST) Fingerstick INR 2.4 INR 9:52 AM EST [facility] Blood 06/09/2023 9:49 AM EST 06/09/2023 9:52 AM EST Narrative [facility] - 06/09/2023 9:52 AM EST Therapeutic ranges for non-operative patients: Prophylaxsis/treatment of DVT: (Range:2.0-3.0) Treatment of pulmonary embolism:(Range:2.0-3.0) Prevention of systemic embolism from: -tissue heart valves -acute myocardial infarction -valvular heart disease -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 (Range: 2.0-3.0) Mechanical prosthetic valves: (Range: 2.5-3.5) [facility] [place] LAB POINT OF CARE TEST DOCKED DEVICE UNSOLICITED RESULTS Performing Organization Address City/State/[facility] Co de Phone Number [facility] [place], [place] [phone] documented in this encounter Visit Diagnoses Diagnosis Permanent 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 (HCC)- Primary Atrial fibrillation documented in this encounter Advance Directives Latest [...] and were consensually agreed upon. Care Teams Entry Level Accounting Clerk Relationship Specialty Start Date End Date William Arreola DO [address] [place] [address] PCP - General Family Medicine 12/05/16 documented as of this encounter"
--- OUTSIDE RECORDS SUMMARY | 2023-11-13 13:47 | External Medical Summary | Summary of Care ---
Author Name Unknown Organization [facility] Address [address] [place] [facility] [place] [address] Phone [phone] Care Team Providers Care Economic Research Analyst Name Role Phone William Arreola DO Primary Care Provider [phone] Reason for Visit * Reason Comments Dosage Adjustment In Person (Anticoag Cl inic) Encounter Details Date Type Department Care Team (Latest Contact Info) Description 09/08/2023 9:00 AM EDT Anticoagulation Pharmacy, [address] [address] [facility] [address] [place] [address] Anticoagulation management encounter*; Permanent 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 (HCC) Allergies Active Allergy Reactions Criticality Noted Date Comments Parish Inhibitors Cough Medium 05/14/2011 Penicillins 01/30/1999 rash documented as of this encounter (statuses as of 09/08/2023) Medications Medication Sig Dispensed Refills Start Date [...] Tablet (Coumadin)Indication s:Anticoagulation management encounter,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),shelter current use of anticoagulant therapy Take 1 Tablet by mouth daily DIRECTED BY [facility]TICOAG CLINIC 90 Tablet 0 08/27/2023 Active documented as of this encounter (statuses as of 09/08/2023) Active Problems Problem Noted Date Diagnosed Date [...] History of prostatectomy 07/09/2010 Overview: [place] [facility] [place] for BPH Dyslipidemia, goal to be determined 04/29/2008 FAM HX-DIABETES MELLITUS 03/26/2002 IMPOTENCE, ORGANIC ORIGN documented as of this encounter (statuses as of 09/08/2023) Resolved Problems Problem Noted Date Diagnosed Date [...] as of this encounter (statuses as of 09/08/2023) Immunizations Name Administration Dates Next Due COVID-19 [...] this encounter Progress Notes * Daiana Donaldson, [facility] - 09/08/2023 9:00 AM EDT Medication Therapy Disease Management - Anticoagulation Patient: Phillkimberly Shelby | : 1940 Subjective Patient-Reported Symptoms: Patient Findings Negatives: Signs/symptoms of thrombosis, Signs/symptoms of bleeding, Change in health, Change in alcohol use, Change in activity, Upcoming invasive procedure, Missed doses, Extra doses, Change in medications, Change in diet/appetite, Bruising Objective Current Warfarin Dose As of 09/08/2023 Warfarin maintenance plan: 2.5 mg (2.5 mg x 1) every day INR Result As of 09/08/2023 INR goal: 2.0-3.0 INR used for dosin.2 (09/08/2023) Assessment & Plan Warfarin Plan As of 09/08/2023 Full warfarin instructions: 2.5 mg every day Next INR check: 10/28/2023 Repeat PT/INR in 7 week(s) Weekly dose: not changed Additional Dosing Information: Description PACE information provided 10/11/22 Daiana Donaldson [facility] Clinical Pharmacist 09/08/2023, 9:00 AM documented in this encounter Plan of Treatment Upcoming Encounters Date Type Department Care Team (Late st Contact Info) Description 09/23/2023 5:00 PM EDT Office Visit Family Practice [facility] 200 [facility], [place] [address] William Arreola DO 200 [facility], [place] [address] 10/28/2023 8:50 AM EDT Anticoagulation Pharmacy, [address] [place] [address] [place] [address] [place] [address] 12/15/2023 9:00 AM EDT Cardiac Studies Cardiology, [facility] [address] [facility] [place] [address] [facility] 132 [facility] [place] [address] 01/29/2024 2:00 PM EDT Office Visit Nephrology, [facility] 200 [facility] [place], [place] [address] Ed Martell MD [address] [facility] [address] [place], [place] [address] 05/31/2024 9:45 AM EST [facility] [place] [address] [facility] [address] [place] [address] Harinder Navarrete MD [address] [facility] [place], [place] [address] Health Maintenance Due Date Last Done Comments Zoster Vaccines (2 of 3) 10/03/2009 08/08/2009 COVID-19 Vaccine ( season) 2023 02/11/2023, 09/04/2021, 07/19/2020, Additional history exists GFR 04/12/2023 10/11/2022, 01/2022, 10/17/2021, Additional history exists Albumin/Creatinine Ratio 10/12/2023 023, 09/09/2016, 07/11/2015, Additional history exists CKD HGB USE SMARTSET 92279 10/12/202310/11, 03/20/2022, 03/20/2022, Additional history exists CKD PHOS USE SMARTSET 84174 10/12/20230 06/2022, 03/20/2022, 10/17/2021, Additional history exists Depression [...] this encounter Medical Devices Implanted Type Area Network Firewall Engineer Device Identifier Shelf Expiration Date Model / Serial / Lot Lens Intraoc 22.0 - [id number] - [id number] Implanted:Qty: 1 on 12/28/2020 by Tru Ace MD at OR [facility] Right: Eye BAUSCH [employer] LOMB 03/11/2025 [id number] / [id number] / [id number] Lens Intraoc 22.0 - [id number] - [id number] Implanted:Qty: 1 on 01/04/2021 by Tru Ace MD at OR [facility] Left: Eye BAUSCH [employer] LOMB 04/10/2025 [id number] / [id number] / [id number] documented as of this encounter Procedures Procedure Name Priority Date/Time Associated Diagnosis Comments INR FINGERSTICK, POINT OF CARE STAT 09/08/2023 9:03 AM EDT Permanent 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 (HCC) Anticoagulation management encounter documented in this encounter Results * INR FINGERSTICK, POINT OF CARE (09/08/2023 9:03 AM EDT) Fingerstick INR 2.2 INR 9:04 AM EDT [facility] Blood 09/08/2023 9:03 AM EDT 09/08/2023 9:04 AM EDT [facility] - 09/08/2023 9:04 AM EDT Therapeutic ranges for non-operative patients: Prophylaxsis/treatment of DVT: (Range:2.0-3.0) Treatment of pulmonary embolism:(Range:2.0-3.0) Prevention of systemic embolism from: -tissue heart valves -acute myocardial infarction -valvular heart disease -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 (Range: 2.0-3.0) Mechanical prosthetic valves: (Range: 2.5-3.5) Daiana Price [place] [facility] LAB POINT OF CARE TEST DOCKED DEVICE UNSOLICITED RESULTS [facility] [place] [address] documented in this encounter Visit Diagnoses Diagnosis [...] and were consensually agreed upon. Care Teams Economic Research Analyst Relationship Specialty Start Date End Date William Arreola DO [address] [place] [address] PCP - General Family Medicine 12/05/16 documented as of this encounter"
--- OUTSIDE RECORDS SUMMARY | 2023-11-13 13:47 | External Medical Summary | Summary of Care ---
Author Name Unknown Organization [facility] Address [address] [place] [address] Phone [phone] Care Team Providers Care Pocket Builder Name Role Phone William Arreola DO Primary Care Provider [phone] Encounter Details Date Type Department Care Team (Late st Contact Info) Description 05/27/2023 Orders Only PATIENT PORTAL DO NOT DELETE THIS DEPT USED BY [place] [address] Allergies Active Allergy Reactions Criticality Noted Date Comments Parish Inhibitors Cough Medium 05/14/2011 Penicillins 01/30/1999 rash documented as of this encounter (statuses as of 05/27/2023) Medications Medication Sig Dispensed Refills Start Date [...] Tablet (Coumadin)Indication s:Anticoagulation management encounter,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),emt intermediate current use of anticoagulant therapy Take 1 [...] as of this encounter (statuses as of 05/27/2023) Active Problems Problem Noted Date Diagnosed Date [...] History of prostatectomy 07/09/2010 Overview: [place] [facility] [place] Beck for BPH Dyslipidemia, goal to be determined 04/29/2008 FAM HX-DIABETES MELLITUS 03/26/2002 IMPOTENCE, ORGANIC ORIGN documented as of this encounter (statuses as of 05/27/2023) Resolved Problems Problem Noted Date Diagnosed Date [...] as of this encounter (statuses as of 05/27/2023) Immunizations Name Administration Dates Next Due COVID-19 [...] Description 06/09/2023 9:40 AM EST Anticoagulation Pharmacy, [place] [address] [place] [address] [facility] [address] [place] [address] 09/23/2023 5:00 PM EDT Office Visit Family Practice [address] [place] [address] [place] [address] William Arreola DO 200 [facility] [place], [place] [address] 12/15/2023 9:00 AM EDT Cardiac Studies Cardiology, [facility] [address] [facility] [place] [address] [facility] 132 [facility] [place] [address] 01/29/2024 2:00 PM EDT Office Visit [facility], [facility] [place] [address] Ed Martell MD 200 [facility] [place], [place] [address] 05/31/2024 9:45 AM EST Office Visit Dermatology [facility] [address] [facility] [address] [place], [place] [address] Harinder Navarrete MD 200 [facility] [place], [place] [address] Health Maintenance Due Date Last Done Comments Zoster Vaccines (2 of 3) 10/03/2009 08/08/2009 COVID-19 Vaccine ( season) 2023 02/11/2023, 09/04/2021, 07/19/2020, Additional history exists GFR 04/12/2023 10/11/2022, 01/2022, 10/17/2021, Additional history exists Albumin/Creatinine Ratio 10/12/2023 023, 09/09/2016, 07/11/2015, Additional history exists CKD HGB USE SMARTSET 83535 10/12/202310/11, 03/20/2022, 03/20/2022, Additional history exists CKD PHOS USE SMARTSET 61374 10/12/202306/2022, 03/20/2022, 10/17/2021, Additional history exists Depression Screening 10/12/2023 10/11/2022 HbA1c 10/12/2023 10/11/2022, 0612/2021, 10/17/2020, Additional history exists DTaP,Tdap,and Td Vaccines [...] this encounter Medical Devices Implanted Type Area Chief Order Dispatcher Device Identifier Shelf Expiration Date Model / Serial / Lot Lens Intraoc 22.0 - [id number] - [id number] Implanted:Qty: 1 on 12/28/2020 by Tru Ace MD at OR [facility] Right: Eye [employer]USCH [employer] LOMB 03/11/2025 [id number] / [id number] / [id number] Lens Intraoc 22.0 - [id number] - [id number] Implanted:Qty: 1 on 01/04/2021 by Tru Ace MD at OR [facility] Left: Eye BAUSCH & LOMB 04/10/2025 [id number] / [id number] / [id number] documented as of this encounter Advance Directives [...] and were consensually agreed upon. Care Teams Pocket Builder Relationship Specialty Start Date End Date William Arreola DO [address] [place] [address] PCP - General Family Medicine 12/05/16 documented as of this encounter
--- OUTSIDE RECORDS SUMMARY | 2023-11-13 13:47 | External Medical Summary | Summary of Care ---
Author Name Unknown Organization [facility] Address [address] [facility] [place] [address] Phone [phone] Care Team Providers Care Technical Support Specialist Name Role Phone Deanna Delgado DO Primary Care Provider [phone] Reason for Visit * Reason Comments Medication Refill Encounter Details Date Type Department Care Team (Late st Contact Info) Description 08/27/2023 [facility]ill [facility] [place] [address] [facility] [place] [address] Deanna Delgado DO [address] [facility] [place] [address] Essential hypertension with goal blood pressure less than 140/90 Allergies Active Allergy Reactions Criticality Noted Date Comments Parish Inhibitors Cough Medium 05/14/2011 Penicillins 01/30/1999 rash documented as of this encounter (statuses as of 08/28/2023) Medications Medication Sig Dispensed Refills Start Date [...] 0 Active Chlorthalidone 25 MG Oral Tablet (Hygroton)Indicatio ns:Hypertensive kidney disease with chronic kidney disease stage III (HCC) TAKE ONE TABLET BY MOUTH EVERY MORNING 100 Tablet 2 03/18/2023 4 Active Allopurinol 100 MG Oral Tablet (Zyloprim)Indicatio [...] (Coumadin)Indicatio ns:Anticoagulation management encounter,Paroxysma l 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 (HCC),[facility] current use of anticoagulant therapy Take 1 Tablet by mouth daily DIRECTED BY ANTICOAG CLINIC 90 Tablet 0 08/27/2023 Active Losartan Potassium 25 MG Oral Tablet (Cozaar)Indications :Essential hypertension with goal blood pressure less than 140/90 TAKE ONE TABLET BY MOUTH EVERY MORNING 90 Tablet 1 02/28/2023 4 Discontinue d(Refill) documented as of this encounter (statuses as of 08/28/2023) Active Problems Problem Noted Date Diagnosed Date [...] History of prostatectomy 07/09/2010 Overview: Robotic at [facility] Dr Beck for BPH Dyslipidemia, goal to be determined 04/29/2008 FAM HX-DIABETES MELLITUS 03/26/2002 IMPOTENCE, ORGANIC ORIGN documented as of this encounter (statuses as of 08/28/2023) Resolved Problems Problem Noted Date Diagnosed Date [...] as of this encounter (statuses as of 08/28/2023) Immunizations Name Administration Dates Next Due COVID-19 [...] encounter Miscellaneous Notes * Telephone Encounter - Leidy Gramajo [facility] - 08/28/2023 6:55 AM EDTSigned Prescriptions: Disp Refills Losartan Potassium 25 MG Oral Tablet (Coza*90 Tab*1 Sig: TAKE ONE TABLET BY MOUTH EVERY MORNINGAuthorizing Provider: DEANNA DELGADO User: LEIDY GRAMAJO documented in this encounter Plan of Treatment Upcoming Encounters Date Type Department Care Team (Late st Contact Info) Description 09/08/2023 9:00 AM EDT Anticoagulation Pharmacy, [address] [address] [place] [address] [place] [address] 09/23/2023 5:00 PM EDT Office Visit Family Practice [facility] [address] [place] [address] Deanna Delgado DO [address] [place] [address] 12/15/2023 9:00 AM EDT Cardiac Studies Cardiology, [facility] [address] [facility] [place] [address] [facility] [address] [facility] [place] [address] 01/29/2024 2:00 PM EDT Office Visit Nephrology, [facility] [address] [place] [address] Ed Martell MD [address] [place] [address] 05/31/2024 9:45 AM EST Office Visit Dermatology [place] [address] [place] [address] Harinder Navarrete MD [address] [facility] [place], [place] [address] Health Maintenance Due Date Last Done Comments Zoster Vaccines (2 of 3) 10/03/2009 08/08/2009 COVID-19 Vaccine (2022- season) 2023 02/11/2023, 09/04/2021, 07/19/2020, Additional history exists GFR 04/12/2023 10/11/2022, 01/2022, 10/17/2021, Additional history exists Albumin/Creatinine Ratio 10/12/2023 023, 09/09/2016, 07/11/2015, Additional history exists CKD HGB USE SMARTSET 13879 10/12/202310/11, 03/20/2022, 03/20/2022, Additional history exists CKD PHOS USE SMARTSET 33560 10/12/202306/2022, 03/20/2022, 10/17/2021, Additional history exists Depression [...] encounter Medical Devices Implanted Type Area Special Tax Auditor Device Identifier Shelf Expiration Date Model / Serial / Lot Lens Intraoc 22.0 - [id number] - [id number] Implanted:Qty: 1 on 12/28/2020 by Tru Ace MD at OR [facility] Right: Eye [employer]CH [employer] LOMB 03/11/2025 [id number] / [id number] / [id number] Lens Intraoc 22.0 - [id number] - [id number] Implanted:Qty: 1 on 01/04/2021 by Tru Ace MD at OR [facility] Left: Eye BAUSCH & LOMB 04/10/2025 [id number] / [id number] / [id number] documented as of this encounter Visit Diagnoses Diagnosis Essential hypertension with goal blood pressure less than 140/90 documented in this encounter Advance Directives Latest [...] and were consensually agreed upon. Care Teams Technical Support Specialist Relationship Specialty Start Date End Date Deanna Delgado DO [address] [place] [address] PCP - General Family Medicine 12/05/16 documented as of this encounter
--- OUTSIDE RECORDS SUMMARY | 2023-11-13 13:47 | External Medical Summary | Summary of Care ---
Author Name Unknown Organization [facility] Address [address] [facility] [address] Phone [phone] Care Team Providers Care Head Boys Golf Coach Name Role Phone William Arreola DO Primary Care Provider [phone] Reason for Visit * Reason Onset Date Comments Health Maintenance 06/13/2023 Encounter Details Date Type Department Care Team (Late st Contact Info) Description 06/13/2023 Telephone Family Practice [facility] [place] 200 [facility] [place] [address] William Arreola DO 200 [facility] [place] [address] Health Maintenance Allergies Active Allergy Reactions Criticality Noted Date Comments Parish Inhibitors Cough Medium 05/14/2011 Penicillins 01/30/1999 rash documented as of this encounter (statuses as of 06/13/2023) Medications Medication Sig Dispensed Refills Start Date [...] Tablet (Coumadin)Indication s:Anticoagulation management encounter,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),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 Take 1 Tablet by mouth daily DIRECTED BY [facility] 90 Tablet 1 01/27/2023 Active Losartan [...] as of this encounter (statuses as of 06/13/2023) Active Problems Problem Noted Date Diagnosed Date [...] History of prostatectomy 07/09/2010 Overview: Robotic at [facility] Dr Beck for BPH Dyslipidemia, goal to be determined 04/29/2008 FAM HX-DIABETES MELLITUS 03/26/2002 IMPOTENCE, ORGANIC ORIGN documented as of this encounter (statuses as of 06/13/2023) Resolved Problems Problem Noted Date Diagnosed Date [...] as of this encounter (statuses as of 06/13/2023) Immunizations Name Administration Dates Next Due COVID-19 [...] encounter Miscellaneous Notes * Telephone Encounter - Katherin Mcwilliams LPN - 06/13/2023 12:43 PM EST Care Gaps Comprehensive Care Outreach Last Office/Telemedicine Visit: 11/11/2022 (in office), Visit date not found (telemedicine) Next Office Visit: 09/23/2023 Hemoglobin AIC Results: Lab Results Component Value Date/Time HEMOGLOBIN A1C - [facility] 6.3 (H) 10/11/2022 09:02 AM HEMOGLOBIN A1C - [facility] 6.4 (H) 10/17/2021 04:22 PM HEMOGLOBIN A1C - [facility] 6.1 (H) 10/17/2020 09:12 AM HEMOGLOBIN A1C - [facility] 6.3 (H) 10/05/2019 08:57 AM HEMOGLOBIN A1C - [facility] 6.2 (H) 03/15/2019 09:31 AM HEMOGLOBIN A1C - [facility] 5.7 04/02/2002 07:42 AM BP Readings from Last 1 Encounters: 05/26/23 140/62 Reviewed Health Maintenance below: Health Maintenance Topic Date Due Zoster Vaccines (2 of 3) 10/03/2009 COVID-19 Vaccine ( season) 2023 GFR 04/12/2023 Albumin/Creatinine Ratio 10/12/2023 HbA1c 10/12/2023 CKD HGB USE SMARTSET 70300 10/12/2023 CKD PHOS USE SMARTSET 91968 10/12/2023 Lab Orders already placed by nephmelvi Velasquez already done Care Gap Outreach Action Taken: Outreach not indicated documented in this encounter Plan of Treatment Upcoming Encounters Date Type Department Care Team (Late st Contact Info) Description 07/21/2023 9:00 AM EDT Anticoagulation Pharmacy, [place] [address] [place] [facility] [place] [address] [facility] [address] [place] [facility] [address] 09/23/2023 5:00 PM EDT [facility] [place] [address] [place] [address] William Arreola DO [address] [place] [place] [address] 12/15/2023 9:00 AM EDT Cardiac Studies Cardiology, [facility] [address] [place] [address] [facility] [address] [place] [address] 01/29/2024 2:00 PM EDT [facility] 200 [facility] [place] [address] Ed Martell MD 200 [facility] [place] [address] 05/31/2024 9:45 AM EST Office Visit Dermatology [facility] 200 [facility] [place] [address] Harinder Navarrete MD 200 [facility] [place] [address] Health Maintenance Due Date Last Done Comments Zoster Vaccines (2 of 3) 10/03/2009 08/08/2009 COVID-19 Vaccine ( season) 2023 02/11/2023, 09/04/2021, 07/19/2020, Additional history exists GFR 04/12/2023 10/11/2022, 01/2022, 10/17/2021, Additional history exists Albumin/Creatinine Ratio 10/12/2023 023, 09/09/2016, 07/11/2015, Additional history exists CKD HGB USE SMARTSET 99257 10/12/202310/11, 03/20/2022, 03/20/2022, Additional history exists CKD PHOS USE SMARTSET 80633 10/12/202306/2022, 03/20/2022, 10/17/2021, Additional history exists Depression [...] this encounter Medical Devices Implanted Type Area Bellman Device Identifier Shelf Expiration Date Model / Serial / Lot Lens Intraoc 22.0 - [id number] - [id number] Implanted:Qty: 1 on 12/28/2020 by Tru Ace MD at OR [facility] Right: Eye BAUSCH & LOMB 03/11/2025 [id number] / [id number] / [id number] Lens Intraoc 22.0 - [id number] - [id number] Implanted:Qty: 1 on 01/04/2021 by Tru Ace MD at OR [facility] Left: Eye BAUSCH & LOMB 04/10/2025 [id number] / [id number] / [id number] documented as of this encounter Advance Directives [...] and were consensually agreed upon. Care Teams Head Boys Golf Coach Relationship Specialty Start Date End Date William Arreola DO [address] [place] [address] PCP - General Family Medicine 12/05/16 documented as of this encounter
--- OUTSIDE RECORDS SUMMARY | 2023-11-13 13:47 | External Medical Summary | Summary of Care ---
Author Name Unknown Organization [facility] Address [address] [place] [place] [place] [address] Phone [phone] Care Team Providers Care Delivery Representative Name Role Phone William Arreola DO Primary Care Provider [phone] Reason for Visit * Reason Onset Date Comments Insurance 07/21/2023 64 Fwd - Tour/re quirements Encounter Details Date Type Department Care Team (Late st Contact Info) Description 07/21/2023 Telephone Family Practice 65 [facility] [address] [place] [address] Iliana Lund, 293 [place] [address] Insurance (65 Fwd - Tour/requirements) Allergies Active Allergy Reactions Criticality Noted Date Comments Parish Inhibitors Cough Medium 05/14/2011 Penicillins 01/30/1999 rash documented as of this encounter (statuses as of 10/03/2023) Medications Medication Sig Dispensed Refills Start Date [...] mouth daily. 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 Dr Beck for BPH Dyslipidemia, goal to be determined 04/29/2008 FAM HX-DIABETES MELLITUS 03/26/2002 IMPOTENCE, ORGANIC ORIGN documented as of this encounter (statuses as of 10/03/2023) Resolved Problems Problem Noted Date Diagnosed Date [...] as of this encounter (statuses as of 10/03/2023) Immunizations Name Administration Dates Next Due COVID-19 [...] maintain [facility] coverage. Tour done today, 3.24 documented in this encounter Plan of Treatment Upcoming Encounters Date Type Department Care Team (Late st Contact Info) Description 10/28/2023 8:50 AM EDT Anticoagulation Pharmacy, [place] [address] [place] [address] [facility] [address] [place] [address] 11/10/2023 10:20 AM EDT Pharmacy Family Practice 65 [facility] 293 [place] [phone] College, Pharmacist [address] [place] [address] 11/10/2023 10:40 AM EDT Office Visit Family Practice 65 [facility] 293 [place] [phone] Iliana Lund DO 293 [facility] [place] [address] 12/15/2023 9:00 AM EDT Cardiac Studies Cardiology, [facility] 132 [facility] [place] [address] [facility] 132 [facility] [place] [address] 05/28/2024 8:40 AM EST Office Visit Nephrology, [place] [address] [place] [address] Ed Martell MD [address] [place] [address] 05/31/2024 9:45 AM EST Office Visit Dermatology [place] [address] [place] [address] Harinder Navarrete MD [address] [place] [address] Health Maintenance Due Date Last Done Comments Zoster Vaccines (2 of 3) 10/03/2009 08/08/2009 COVID-19 Vaccine ( season) 2023 02/11/2023, 09/04/2021, 07/19/2020, Additional history exists GFR 04/12/2023 10/11/2022, 01/2022, 10/17/2021, Additional history exists Albumin/Creatinine Ratio 10/12/2023 023, 09/09/2016, 07/11/2015, Additional history exists CKD HGB USE SMARTSET 59844 10/12/202310/11, 03/20/2022, 03/20/2022, Additional history exists CKD PHOS USE SMARTSET 42556 10/12/2023 060 06/2022, 03/20/2022, 10/17/2021, Additional history exists HbA1c 10/12/2023 10/11/2022, 0 12/2021, 10/17/2020, Additional [...] this encounter Medical Devices Implanted Type Area Kettle Cook Device Identifier Shelf Expiration Date Model / Serial / Lot Lens Intraoc 22.0 - [id number] - [id number] Implanted:Qty: 1 on 12/28/2020 by Tru Ace MD at OR [facility] Right: Eye BAUSCH & LOMB 03/11/2025 [id number] / [id number] / [id number] Lens Intraoc 22.0 - [id number] - [id number] Implanted:Qty: 1 on 01/04/2021 by Tru Ace MD at OR [facility] Left: Eye BAUSCH & LOMB 04/10/2025 [id number] / [id number] / [id number] documented as of this encounter Advance Directives [...] and were consensually agreed upon. Care Teams Delivery Representative Relationship Specialty Start Date End Date William Arreola DO 200 [facility] [place] [address] PCP - General Family Medicine 12/05/16 documented as of this encounter
--- OUTSIDE RECORDS SUMMARY | 2023-11-13 13:47 | External Medical Summary | Summary of Care ---
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 Allergies Active Allergy Reactions Criticality Noted Date [...] (Coumadin)Indication s:Anticoagulation management encounter,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),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 Take [...] History of prostatectomy 07/09/2010 Overview: Robotic at [facility] Dr Beck for BPH Dyslipidemia, goal to [...] this encounter Progress Notes * Daiana Donaldson, [facility] - 07/21/2023 9:02 AM EDT Medication Therapy Disease Management - Anticoagulation Patient: Phill Shelby | : 1940 Subjective Patient-Reported Symptoms: Patient Findings Negatives: Signs/symptoms of thrombosis, Signs/symptoms of bleeding, Change in health, Change in alcohol use, Change in activity, Upcoming invasive procedure, Missed doses, Extra doses, Change in medications, Change in diet/appetite, Bruising Objective Current Warfarin Dose As of 07/21/2023 Warfarin maintenance plan: 2.5 mg (2.5 mg x 1) every day INR Result As of 07/21/2023 INR goal: 2.0-3.0 INR used for dosin.5 (07/21/2023) Assessment & Plan Warfarin Plan As of 07/21/2023 Full warfarin instructions: 2.5 mg every day No change documented: Daiana Donaldson RPh Next INR check: 09/08/2023 Repeat PT/INR in 7 week(s) Weekly dose: not changed Additional Dosing Information: Description PACE information provided 10/11/22 - september look to transition pt to eliquanuj Donaldson RPh Clinical Pharmacist 07/21/2023, 9:02 AM documented in this encounter Plan of Treatment Upcoming Encounters Date Type Department Care Team (Late st Contact Info) Description 09/08/2023 9:00 AM EDT [address]tico[address], [address] [address] [facility] [address] 09/23/2023 5:00 PM EDT Office Visit Family Practice [facility] Kayleigh Eastman [address] [place] [address] William Arreola, [address] [place] [address] [address] 12/15/2023 9:00 AM EDT Cardiac Studies Cardiology, [facility] 132 [facility] [place] [address] Matthew Torres [facility] [address] [place] [address] 01/29/2024 2:00 PM EDT Office Visit Nephrology, [facility] [address] [place] [address] Ed Martell MD 200 [facility] [place] [address] 05/31/2024 9:45 AM EST [facility] [place] [address] [place] [address] Harinder Navarrete MD 200 [facility] [place] [address] Health Maintenance Due Date Last Done Comments Zoster Vaccines (2 of 3) 10/03/2009 08/08/2009 COVID-19 Vaccine ( season) 2023 02/11/2023, 09/04/2021, 07/19/2020, Additional history exists GFR 04/12/2023 10/11/2022, 01/2022, 10/17/2021, Additional history exists Albumin/Creatinine Ratio 10/12/2023 023, 09/09/2016, 07/11/2015, Additional history exists CKD HGB USE SMARTSET 81764 10/12/202310/11, 03/20/2022, 03/20/2022, Additional history exists CKD PHOS USE SMARTSET 50234 10/12/202306/2022, 03/20/2022, 10/17/2021, Additional history exists Depression [...] this encounter Medical Devices Implanted Type Area Anchor Tack Puller Device Identifier Shelf Expiration Date Model / Serial / Lot Lens Intraoc 22.0 - [id number] - [id number] Implanted:Qty: 1 on 12/28/2020 by Tru Ace MD at OR [facility] Right: Eye BAUSCH & LOMB 03/11/2025 [id number] / [id number] / [id number] Lens Intraoc 22.0 - [id number] - [id number] Implanted:Qty: 1 on 01/04/2021 by Tru Ace MD at OR [facility] Left: Eye BAUSCH & LOMB 04/10/2025 [id number] / [id number] / [id number] documented as of this encounter Procedures Procedure Name Priority Date/Time Associated Diagnosis Comments INR FINGERSTICK, POINT OF CARE STAT 07/21/2023 9:08 AM EDT Permanent 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 (HCC) Anticoagulation management encounter shelter current use of anticoagulant therapy documented in this encounter Results * INR FINGERSTICK, POINT OF CARE (07/21/2023 9:08 AM EDT) Fingerstick INR 2.5 INR 9:09 AM EDT [facility] Blood 07/21/2023 9:08 AM EDT 07/21/2023 9:09 AM EDT Narrative [facility] - 07/21/2023 9:09 AM EDT Therapeutic ranges for non-operative patients: Prophylaxsis/treatment of DVT: (Range:2.0-3.0) Treatment of pulmonary embolism:(Range:2.0-3.0) Prevention of systemic embolism from: -tissue heart valves -acute myocardial infarction -valvular heart disease -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 (Range: 2.0-3.0) Mechanical prosthetic valves: (Range: 2.5-3.5) Daiana Donaldson [facility] LAB POINT OF CARE TEST DOCKED DEVICE UNSOLICITED RESULTS Performing Organization Address City/State/[facility] Co de Phone Number [phone] [place] [address] documented in this encounter Visit Diagnoses Diagnosis Permanent 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 (HCC)- Primary Atrial fibrillation Anticoagulation management encounter 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 Care Teams Check Grader Relationship Specialty Start Date End Date William Arreola DO [address] [place] [address] PCP - General Family Medicine 12/05/16 documented as of this encounter"
--- OUTSIDE RECORDS SUMMARY | 2023-11-13 13:47 | External Medical Summary | Summary of Care ---
Author Name Unknown Organization [facility] Address [address] [facility] [address] Phone [phone] Care Team Providers Care Preschool Paraprofessional Name Role Phone Deanna Delgado DO Primary Care Provider [phone] Reason for Visit * Reason Comments Medication Refill Encounter Details Date Type Department Care Team (Late st Contact Info) Description 10/07/2023 [facility] [place] 200 [facility] [place] [address] Deanna Delgado DO 200 [facility] [place] [address] Elevated uric acid in blood; Essential hypertension with goal blood pressure less than 140/90 Allergies Active Allergy Reactions Criticality Noted Date Comments Parish Inhibitors Cough Medium 05/14/2011 Penicillins 01/30/1999 rash documented as of this encounter (statuses as of 10/08/2023) Medications Medication Sig Dispensed Refills Start Date [...] (Coumadin)Indicatio ns:Anticoagulation management encounter,Paroxysma l 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 (HCC),FCI current use of anticoagulant therapy Take 1 [...] by mouth daily. 90 Tablet 10/08/2023 Active Allopurinol 100 MG Oral Tablet (Zyloprim)Indicatio ns:Elevated uric acid in blood Take 2 Tablets by mouth in the morning. 180 Tablet 1 04/16/2023 4 Discontinue d(Refill) amLODIPine Besylate 10 MG Oral Tablet (Norvasc)Indication s:Essential hypertension with goal blood pressure less than 140/90 Take 1 Tablet by mouth daily. 90 Tablet 1 04/16/2023 4 Discontinue d(Refill) documented as of this encounter (statuses as of 10/08/2023) Active Problems Problem Noted Date Diagnosed Date [...] History of prostatectomy 07/09/2010 Overview: Robotic at [facility] Dr Beck for BPH Dyslipidemia, goal to be determined 04/29/2008 FAM HX-DIABETES MELLITUS 03/26/2002 IMPOTENCE, ORGANIC ORIGN documented as of this encounter (statuses as of 10/08/2023) Resolved Problems Problem Noted Date Diagnosed Date [...] as of this encounter (statuses as of 10/08/2023) Immunizations Name Administration Dates Next Due COVID-19 [...] encounter Miscellaneous Notes * Telephone Encounter - Traci Riggs [facility] - 10/08/2023 1:36 PM EDTSigned Prescriptions: Disp Refills Allopurinol 100 MG Oral Tablet (Zyloprim) 180 Ta*0 Sig: Take 2 Tablets by mouth in the morning. Authorizing Provider: DEANNA DELGADO Ordering User: TRACI RIGGS amLODIPine Besylate 10 MG Oral Tablet (Nor*90 Tab*0 Sig: Take 1 Tablet by mouth daily. Authorizing Provider: DEANNA DELGADO Ordering User: TRACI RIGGS < BR> * Telephone Encounter - Traci Riggs [facility] - 10/08/2023 1:36 PM EDT Approved until upcomming OV to establish care with 65 forward provider. Labs also due pending completion. * Telephone Encounter - Transfer User, Rx Adt - 10/07/2023 12:13 AM EDTPending Prescriptions: Disp Refills Allopurinol 100 MG Oral Tablet (Zyloprim) 180 Ta*1 Sig: Take 2 Tablets by mouth in the morning. amLODIPine Besylate 10 MG Oral Tablet (Nor*90 Tab*1 Sig: Take 1 Tablet by mouth daily. documented in this encounter Plan of Treatment Upcoming Encounters Date Type Department Care Team (Late st Contact Info) Description 10/28/2023 8:50 AM EDT Anticoagulation Pharmacy, [place] [address] [facility] [address] [place], [facility] [address] [facility] [address] 11/10/2023 10:20 AM EDT Pharmacy Family Practice 65 [facility] 293 [place] [place] [address] College, Pharmacist [address] [place] [address] 11/10/2023 10:40 AM EDT Office Visit Family Practice 65 [facility] 293 [place] [place] [phone] Iliana Lund DO 293 [place] [address] 12/15/2023 9:00 AM EDT Cardiac Studies Cardiology, [facility] 132 [facility] [place] [address] [facility] 132 [facility] [place] [address] 05/28/2024 8:40 AM EST Office Visit Nephrology, [place] [address] [place] [address] Ed Martell MD [address] [place] [address] 05/31/2024 9:45 AM EST Office Visit Dermatology [place] [address] [place] [address] Harinder Navarrete MD [address] [place] [address] Health Maintenance Due Date Last Done Comments Zoster Vaccines (2 of 3) 10/03/2009 08/08/2009 COVID-19 Vaccine ( season) 2023 02/11/2023, 09/04/2021, 07/19/2020, Additional history exists GFR 04/12/2023 10/11/2022, 01/2022, 10/17/2021, Additional history exists Albumin/Creatinine Ratio 10/12/2023 023, 09/09/2016, 07/11/2015, Additional history exists CKD HGB USE SMARTSET 60204 10/12/202310/11, 03/20/2022, 03/20/2022, Additional history exists CKD PHOS USE SMARTSET 35940 10/12/2023 060 06/2022, 03/20/2022, 10/17/2021, Additional history [...] this encounter Medical Devices Implanted Type Area Hitcher Device Identifier Shelf Expiration Date Model / Serial / Lot Lens Intraoc 22.0 - [id number] - [id number] Implanted:Qty: 1 on 12/28/2020 by Tru Ace MD at OR [facility] Right: Eye BAUSCH & LOMB 03/11/2025 [id number] / [id number] / [id number] Lens Intraoc 22.0 - [id number] - [id number] Implanted:Qty: 1 on 01/04/2021 by Tru Ace MD at OR [facility] Left: Eye BAUSCH & LOMB 04/10/2025 [id number] / [id number] / [id number] documented as of this encounter Visit Diagnoses Diagnosis Elevated uric acid in blood Other abnormal blood chemistry Essential hypertension with goal blood pressure less than 140/90 documented in this encounter Advance Directives * [...] and were consensually agreed upon. Care Teams Preschool Paraprofessional Relationship Specialty Start Date End Date Deanna Delgado DO [address] [place] [address] PCP - General Family Medicine 12/05/16 documented as of this encounter
--- OUTSIDE RECORDS SUMMARY | 2023-11-13 13:47 | External Medical Summary | Summary of Care ---
Author Name Unknown Organization [facility] Address [address] [place] [address] Phone [phone] Care Team Providers Care Bucket Operator Name Role Phone Deanna Delgado DO Primary Care Provider [phone] Reason for Visit * Reason Comments Medication Refill Encounter Details Date Type Department Care Team (Late st Contact Info) Description 08/27/2023 Refill [facility] [address] [place] [id number] Deanna Delgado DO [address] [place], [place] [id number] Anticoagulation management encounter; 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); [facility]DC current use of anticoagulant therapy Allergies Active Allergy Reactions Criticality Noted Date Comments Parish Inhibitors Cough Medium 05/14/2011 Penicillins 01/30/1999 rash documented as of this encounter (statuses as of 08/27/2023) Medications Medication Sig Dispensed Refills Start Date [...] CPAP every night at bedtime. 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 current use of anticoagulant therapy Take 1 Tablet by mouth daily DIRECTED BY [facility] 90 Tablet 0 08/27/2023 Active Warfarin Sodium 2.5 MG Oral Tablet (Coumadin)Indicatio ns:Anticoagulation management encounter,Paroxysma l 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 (HCC),[facility]DC current use of anticoagulant therapy Take 1 Tablet by mouth daily DIRECTED BY [facility]AG CLINIC 90 Tablet 1 01/27/2023 4 Discontinue d(Refill) documented as of this encounter (statuses as of 08/27/2023) Active Problems Problem Noted Date Diagnosed Date [...] 07/06/2014 CPAP (continuous positive airway pressure) arlin dinoraleigh 07/06/2014 Elevated uric acid in blood 05/10/2014 History of prostatectomy 07/09/2010 [place] [facility] [place] for BPH Dyslipidemia, goal to be determined 04/29/2008 FAM HX-DIABETES MELLITUS 03/26/2002 IMPOTENCE, ORGANIC ORIGN documented as of this encounter (statuses as of 08/27/2023) Resolved Problems Problem Noted Date Diagnosed Date [...] as of this encounter (statuses as of 08/27/2023) Immunizations Name Administration Dates Next Due COVID-19 [...] encounter Miscellaneous Notes * Telephone Encounter - Fredo Collier, [facility] - 08/27/2023 4:56 PM EDTSigned Prescriptions: Disp Refills Warfarin Sodium 2.5 MG Oral Tablet (Coumad*90 Tab*0 Sig: Take 1 Tablet by mouth daily DIRECTED BY ANTICOAG CLINICAuthorizing Provider: DEANNA DELGADOUser: FREDO COLLIER documented in this encounter Plan of Treatment Upcoming Encounters Date Type Department Care Team (Late st Contact Info) Description 09/08/2023 9:00 AM EDT Anticoagulation Pharmacy, [address] [address] [address] [place] [place] [address] 09/23/2023 5:00 PM EDT Office Visit [facility] [address] [place], [place] [address] Deanna Delgado, DO [address] [place] [address] 12/15/2023 9:00 AM EDT Cardiac Studies [facility]iology, [facility] [address] [facility] [place] [address] Matthew Torres [facility] [address] [facility] [place] [address] 01/29/2024 2:00 PM EDT Office Visit Nephrology, [facility] [address] [place] [address] Ed Martell MD [address] [facility] [place] [address] 05/31/2024 9:45 AM EST Office Visit Dermatology [facility] [place] [address] [facility] [place], [place] [address] Harinder Navarrete MD [address] [facility] [place], [place] [address] Health Maintenance Due Date Last Done Comments Zoster Vaccines (2 of 3) 10/03/2009 08/08/2009 COVID-19 Vaccine (2022- season) 2023 02/11/2023, 09/04/2021, 07/19/2020, Additional history exists GFR 04/12/2023 10/11/2022, 01/2022, 10/17/2021, Additional history exists Albumin/Creatinine Ratio 10/12/2023 023, 09/09/2016, 07/11/2015, Additional history exists CKD HGB USE SMARTSET 92480 10/12/202310/11, 03/20/2022, 03/20/2022, Additional history exists CKD PHOS USE SMARTSET 10293 10/12/202306/2022, 03/20/2022, 10/17/2021, Additional history exists Depression [...] this encounter Medical Devices Implanted Type Area Shareholder Device Identifier Shelf Expiration Date Model / Serial / Lot Lens Intraoc 22.0 - [id number] - [id number] Implanted:Qty: 1 on 12/28/2020 by Tru Ace MD at OR [facility] Right: Eye [employer] 03/11/2025 [id number] / [id number] / [id number] Lens Intraoc 22.0 - [id number] - [id number] Implanted:Qty: 1 on 01/04/2021 by Tru Ace MD at OR [facility] Left: Eye [employer] 04/10/2025 [id number] / [id number] / [id number] documented as of this encounter Visit Diagnoses Diagnosis Anticoagulation management encounter Encounter for therapeutic drug monitoring 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) Atrial fibrillation 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 Care Teams Bucket Operator Relationship Specialty Start Date End Date Deanna Delgado DO [address] [place] [address] PCP - General Family Medicine 12/05/16 documented as of this encounter
--- OUTSIDE RECORDS SUMMARY | 2023-11-13 13:47 | External Medical Summary ---
Author Name Unknown Address Unknown Organization : Laboratory Report Ordering Provider Test Date Status [facility] 07/21/2023 09:08:25 Final Therapeutic ranges for non-o perative patients:
Prophylaxsis/treatment of DVT: (Range:2.0-3.0)
Treatment of pulmonary embolism:(Range:2.0-3.0)
Prevention of systemic embolism from:
-tissue heart valves
-acute myocardial infarction
-valvular heart disease
-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
(Range: 2.0-3.0)
Mechanical prosthetic valves: (Range: 2.5-3.5) Observation Date Value Abnormality Reference (Units ) Status INR in Capillary blood by Coagulation assay 07/21/2023 09:08:25 2.5 (INR) Final Performing Location
--- OUTSIDE RECORDS SUMMARY | 2023-11-13 13:47 | External Medical Summary ---
Author Name Unknown Address Unknown Organization : Laboratory Report Ordering Provider Test Date Status [facility] 09/08/2023 09:03:17 Final Therapeutic ranges for non-o perative patients:
Prophylaxsis/treatment of DVT: (Range:2.0-3.0)
Treatment of pulmonary embolism:(Range:2.0-3.0)
Prevention of systemic embolism from:
-tissue heart valves
-acute myocardial infarction
-valvular heart disease
-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
(Range: 2.0-3.0)
Mechanical prosthetic valves: (Range: 2.5-3.5) Observation Date Value Abnormality Reference (Units ) Status INR in Capillary blood by Coagulation assay 09/08/2023 09:03:17 2.2 (INR) Final Performing Location
--- NOTE | 2023-11-13 13:49 | History & Physical Report ---
Date of Service November 13, 2023 Assessment & Plan (1) Acute gout: Plan: Woke up with acute pain and swelling involving that left wrist with history of gout on allopurinol likely contributed by use of chlorthalidone which will be stopped x-ray did show some erosive changes in the wrist compatible with gout doubt any septic arthritis started on colchicine and also intravenous ceftriaxone to cover possible spreading cellulitis will give additional pain medications as needed likely discharge tomorrow (2) Atrial fibrillation: Plan: history 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 And also sinus node dysfunction status post pacemaker rate is controlled and is on anticoagulation INR is 2 point-2.5 continue current dose of Coumadin and check INR tomorrow (3) Sinus node dysfunction: (4) Hypertension: Plan: he has been on lisinopril, amlodipine and chlorthalidone chlorthalidone is a stopped as it can cause gouty attack if needed lisinopril can be increased to control the blood pressure (5) CKD (chronic kidney disease): Plan: remains stable DVT prophylaxis on Coumadin CODE STATUS full History of Present Illness Chief Complaint: Acute pain and swelling involving the right wrist on waking up this morning Primary Care Provider: Iliana Lund DO is an 82-year-old male with significant past medical history of 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 with sinus node dysfunction status post pacemaker on anticoagulation, hypertension, hyperlipidemia, stage III chronic kidney disease and also history of gout on allopurinol apparently woke up from sleep this morning with acute pain and swelling involving the left wrist. he took Tylenol without any effect and the pain continued to increase in he came to the emergency room for further evaluation. has an attack of gout before but involving the small joints of the feet. She denies any fever and or chills and no other joint is involved. no any spreading of the redness from the left wrist. no sensory impairment in the fingers and that he could move the fingers. denies any chest pain, palpitation or shortness of breath. no abdominal pain nausea no vomiting. EXTR of the wrist did not show any evidence of osteomyelitis or bone infection or any fracture. Allergies Allergy/AdvReac Type Severity Reaction Status Date / Time Penicillins Allergy Unknown RASH - Verified 04/13/20 12:21 REMOTE HX OF Home Medications Medication Instructions Recorded Confirmed Type acetaminophen 500 mg tablet 500 mg PO [id number] PRN Pain 04/23/19 04/13/20 History (Tylenol Extra Strength) amlodipine 10 mg tablet 10 mg PO QAM 04/23/19 04/13/20 History chlorthalidone 25 mg tablet 25 mg PO QAM 04/23/19 04/13/20 History losartan 25 mg tablet 25 mg PO QAM 04/23/19 04/13/20 History multivitamin 1 tab PO QAM 04/23/19 04/13/20 History warfarin 2.5 mg tablet 2.5 mg PO DAILY 04/23/19 04/13/20 History mupirocin 2 % topical ointment 1 applic topical BID PRN Rash 11/23/19 04/13/20 History (Centany) vitamins A,C,K-nypi-donymg 2,148 1 tab PO DAILY 11/23/19 04/13/20 History mcg-113 mg-45 mg-17.4 mg tablet (PreserVision AREDS) potassium 99 mg tablet 99 mg PO QAM 03/27/20 04/13/20 History Past Med/Surg History Problem List (Updated 11/13/23 @ 13:41 by Abel Reed MD) CKD (chronic kidney disease) stage III - HAS SHAYLEE [employer] [facility] WITH KIDNEY DOC ? NAME Hypertension Acute gout S/P total knee arthroplasty (Acute) Sinus node dysfunction Pt admitted for elective single chamber pacemaker due to AF with SVR and SND; underwent procedure without any complications; monitored overnight and discharged home next day in stable condition Atrial fibrillation (Chronic) Pt admitted for elective single chamber pacemaker due to AF with SVR and SND; underwent procedure without any complications; monitored overnight and discharged home next day in stable condition; continue coumadin Medical History CKD (chronic kidney disease) stage III - HAS SHAYLEE [employer] [facility] WITH KIDNEY DOC ? NAME Lumbar spinal stenosis Osteoarthritis Chronic back pain Pacemaker [place]planted 07/2018 ([place]) for tachy-pat syndrome/sinus node dysfunction, [employer], last check 09/2019 ([facility]) HAS HOME CHECK SYSTEM, CHECKS EVERY NIGHT Atrial fibrillation paroxysmal Borderline high cholesterol Hypertension Sleep apnea CPAP Surgical History History of total left knee replacement DEC 2019 History of colonoscopy S/P cardiac pacemaker procedure HX [facility] 2018 S/P repair of hydrocele HX S/P epidural steroid injection HX caudal History of prostatectomy DUE TO ENLARGEMENT Family History Brother Throat cancer Family history of diabetes mellitus Sister Family history of diabetes mellitus Other No family history of adverse response to anesthesia Social History Smoking Status: Never smoker Second Hand Exposure: No; Do You Dip or Chew Tobacco: No; Hx Alcohol Use: Yes Alcohol type: beer Hx Substance Use: No Preferred Language: Kazakh Communication Ability: Effective Visual Impairment: Limited Hearing Ability: Normal Grant Coordinator Required: No Beliefs That Will Affect Care: None marital status: Current Living Situation: Spouse Feels Safe at Home: Yes Assistive Devices: CPAP and Glasses Review of Systems Review of Systems: all systems reviewed and are unremarkable except as noted below Physical Exam Physical Exam: lying in bed comfortably Constitutional: well developed, well nourished and + ill appearing Eyes: PERRL, conjunctivae normal, anicteric sclerae ENMT: external ear and nose normal, oropharynx normal Neck: trachea midline, no thyromegaly Respiratory: no respiratory distress Auscultation: lungs clear to auscultation bilaterally Cardiovascular: Rate/Rhythm: regular rate and regular rhythm; not tachycardic Heart Sounds: normal S1 and normal S2; no murmur Extremities: no edema Gastrointestinal (Abdomen): Inspection/Auscultation: normal bowel sounds; abdomen not distended Percussion/Palpation: abdomen soft; abdomen nontender Musculoskeletal: Extremities: + wrist abnormality ( swelling mainly on the dorsal aspect with warmth, redness and tenderness) Left Neurologic: normal touch/pain/proprioception and moves all extremities; no focal motor deficits Lymphatic: no cervical or axillary lymphadenopathy Results & Data Results & Data Vital Signs (Past 12 Hours) Vital Signs Temp Pulse Pulse Resp BP BP Pulse Ox 11/13/23 12:25 75 18 116/61 96 11/13/23 10:39 36.0 C L 63 20 136/64 96 O2 Del Method 11/13/23 12:25 Room Air 11/13/23 10:39 Room Air Laboratory Results Short CBC 11/13/23 Range/Units 11:07 WBC 16.80 H (4.8-10.8) K/ul Hgb 13.5 L (14.0-18.0) g/dl Hct 40.2 L (42.0-52.0) % Plt Count 235 (130-400) K/uL BMP 11/13/23 11:07 Sodium 134 L Potassium 3.4 L Chloride 99 Carbon Dioxide 26 BUN 30 H Creatinine 1.31 Glucose 154 H Calcium 9.4 Liver Function 11/13/23 Range/Units 11:07 Total Bilirubin 0.7 (0.2-1.0) mg/dl AST 17 (13-39) U/L ALT 12 (7-52) U/L Alkaline Phosphatase 81 (34-104) U/L Albumin 4.1 (3.4-5.0) gm/dl
--- NOTE | 2023-11-13 14:05 | Emergency Department Note ---
ED Visit Note I was consulted by the Advanced Practice Provider. I personally made/approved the management plan and take responsibility for the patient management. I performed a substantive portion of the visit. This includes the aspects of: This patient comes in with sudden onset of pain in his left hand and wrist. It is mostly in the wrist that does not radiate up his arm no injury. He does have a history of gout. No injury. On my exam, he is very tender and swollen is not overtly red but there is a red streak going up from the wrist to the forearm His white blood count was elevated, concerning for infection. His lactic acid is not elevated -I independently interpreted the following studies: X-ray of the hand and wrist do not show any fracture or bony abnormality -Given the swelling we did start him on IV antibiotics and dread blood cultures and have consulted Dr. Reed to see him for possible admission .
[2023-11-13] MEDS: oxyCODONE HCL IR 5 MG TAB (IMMEDIATE RELEASE) PO PRN (14:15)
[2023-11-13] MEDS ORDERED: MUPIROCIN 2% OINT 22 GM TUBE TOP PRN (16:50)
[2023-11-13] MEDS: WARFARIN SOD 2.5 MG TAB PO SCH (17:58)
[2023-11-13] MEDS: ACETAMINOPHEN 500 MG TAB PO PRN (18:01)
[2023-11-13] MEDS: COLCHICINE 0.6 MG TAB PO SCH (20:17)
[2023-11-14 06:49] LABS: Basophils # (auto) 0.04 K/uL (0.00-0.20); Basophils % (auto) 0.3 %; Eosinophils # (auto) 0.05 K/uL (0.00-0.50); Eosinophils % (auto) 0.4 %; Hematocrit (blood only) 39.4 % (42.0-52.0); Hemoglobin 13.6 g/dl (14.0-18.0); Immature Granulocytes # (auto) 0.07 K/uL (0.01-0.20); Immature Granulocytes % (auto) 0.5 %; Lymphocytes # (auto) 1.89 K/uL (1.20-3.40); Lymphocytes % (auto) 14.4 %; Mean Corpuscular Hemoglobin 30.2 pg (25.0-34.0); Mean Corpuscular Hgb Conc 34.5 g/dL (32.0-36.0); Mean Corpuscular Volume 87.6 fL (80.0-100.0); Mean Platelet Volume 11.2 fL (9.4-12.4); Monocytes # (auto) 1.55 K/uL (0.11-0.59); Monocytes % (auto) 11.8 %; Neutrophils # (auto) 9.56 K/uL (1.40-6.50); Neutrophils % (auto) 72.6 %; Platelet Count 227 K/uL (130-400); RDW Coefficient of Variation 14.5 % (11.5-14.5); RDW Standard Deviation 46.5 fL (36.4-46.3); White Blood Count 13.16 K/ul (4.8-10.8)
[2023-11-14 07:13] LABS: BUN Creatinine Ratio 20.4 (10-20); Calcium 8.6 mg/dl (8.6-10.3); Creatinine Clr Calc Pharmacy 43.9 ml/min; Est GFR (African American) 54.9 ml/min; Est GFR (Non-African American) 47.4 ml/min
[2023-11-14 07:14] LABS: INR 3.2 (0.9-1.1); Prothrombin Time 30.9 Seconds (9.0-12.0)
[2023-11-14] MEDS: CEROVITE ADV FORMULA TAB PO SCH (08:18)
[2023-11-14] MEDS: allopurinoL 100 MG TAB PO SCH (08:18)
[2023-11-14] MEDS: LOSARTAN POTASSIUM 25 MG TAB PO SCH (08:18)
[2023-11-14] MEDS: amLODIPine BESYLATE 5 MG TAB PO SCH (08:18)
[2023-11-14] MEDS ORDERED: NON-FORMULARY MEDICATION (Potassium 99 mg Tablet) PO SCH (09:00)
[2023-11-14] MEDS ORDERED: MULTIVITAMIN TAB PO SCH (09:00)
[2023-11-14] MEDS: POTASSIUM CHLORIDE CRTAB 20 MEQ TABCR PO STA (10:11)
--- NOTE | 2023-11-14 11:30 | Hospitalist Progress Note ---
Date of Service November 14, 2023 Assessment & Plan (1) Acute gout: Plan: Woke up with acute pain and swelling involving that left wrist on the day of arrival [ history of gout on allopurinol ] likely contributed by use of chlorthalidone which has been stopped x-ray did show some erosive changes in the wrist, no acute fractures. doubt any septic arthritis c/w colchicine 11/12, follow clinical response. c/w intravenous ceftriaxone to cover possible spreading cellulitis Pain Mx. (2) Atrial fibrillation: Plan: history 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 And also sinus node dysfunction status post pacemaker rate is controlled and is on anticoagulation INR 3.2 today, will hold coumadin today. follow pt inr in am. (3) Sinus node dysfunction: (4) Hypertension: Plan: he has been on losartan, amlodipine and chlorthalidone chlorthalidone is a stopped as it can cause gouty attack if needed losartan can be increased to control the blood pressure (5) CKD (chronic kidney disease): Plan: remains stable DVT prophylaxis: inr mildly supratherapeutic, coumadin on hold. CODE STATUS: full Admission and Anticipated Discharge Date Admission Date: November 13, 2023 Subjective Patient was seen and examined at bedside. Patient was lying in bed, on room air, NAD, resting comfortably. Patient reports left wrist pain about the same, has painful range of motion, reports eating okay and moving bowels okay. Patient denies febrile illness. Denies chest pain or headache or dizziness. Physical Exam Physical Exam: GENERAL: Alert and oriented x3. NAD, on RA. HEENT: No pallor, no icterus. Pupils equal, round and reactive to light. Oral mucosa moist. NECK: No JVD, no neck masses. HEART: S1 and S2 heard. Regular rate and rhythm. No murmur, no gallop. RESPIRATORY SYSTEM: Normal AP diameter. No accessory muscle use. No wheezing, no crackles. ABDOMEN: Soft, bowel sounds present, nontender, no distention. CENTRAL NERVOUS SYSTEM: No facial droop. Speech is clear. Obeys simple commands. Moves extremities. EXTREMITIES: No ble edema, no erythema seen. Left wrist warm, painful rom, mildly swollen. Results & Data Results & Data Vital Signs (Past 12 Hours) Vital Signs Temp Pulse Resp BP Pulse Ox O2 Del Method 11/14/23 06:58 36.6 C 61 16 129/63 97 Room Air
[2023-11-14] MEDS: DICLOFENAC SOD 1% GEL 100 GM TUBE EXT SCH (12:42)
[2023-11-14] MEDS: POTASSIUM CHLORIDE CRTAB 20 MEQ TABCR PO ONE (13:31)
[2023-11-14] MEDS: cefTRIAXone SODIUM 2,000 MG/50 ML BAG IV SCH (13:33)
[2023-11-15 07:14] LABS: Hematocrit (blood only) 35.4 % (42.0-52.0); Hemoglobin 12.1 g/dl (14.0-18.0); Mean Corpuscular Hgb Conc 34.2 g/dL (32.0-36.0); Mean Corpuscular Volume 87.8 fL (80.0-100.0); Platelet Count 209 K/uL (130-400); RDW Coefficient of Variation 14.5 % (11.5-14.5); RDW Standard Deviation 46.5 fL (36.4-46.3); Red Blood Count 4.03 M/uL (4.70-6.10)
[2023-11-15 07:34] LABS: BUN Creatinine Ratio 20.6 (10-20); Calcium 8.3 mg/dl (8.6-10.3); Creatinine Clr Calc Pharmacy 42.7 ml/min; Est GFR (Non-African American) 45.7 ml/min; Magnesium 1.8 mg/dl (1.7-2.4); Phosphorus 2.7 mg/dl (2.5-4.9); Potassium 3.6 mmol/L (3.5-5.1)
[2023-11-15 07:38] LABS: INR 2.8 (0.9-1.1); Prothrombin Time 27.5 Seconds (9.0-12.0)
--- NOTE | 2023-11-15 10:50 | Hospitalist Progress Note ---
Date of Service November 15, 2023 Assessment & Plan (1) Acute gout: Plan: H/O Gout on Allopurinol Possible cellulitis -Wrist X ray:Degenerative changes are seen which may include an erosive component. No evidence of acute fracture. Clinically improved Continue allopurinol Continue colchicine Chlorthalidone discontinues IV Rocephin>> transition to Doxy on discharge Given persistent swelling, will start on prednisone taper course Plan to discharge home today (2) Atrial fibrillation: Plan: H/O Atrial fibrillation sinus node dysfunction S/P pacemaker INR 2.8 today Resume Coumadin (3) Sinus node dysfunction: (4) Hypertension: Plan: Continue amlodipine, losartan chlorthalidone discontinued secondary to gout (5) CKD (chronic kidney disease): Plan: stable Monitor renal function DVT Px Coumadin CODE STATUS: full Disposition Home Admission and Anticipated Discharge Date Admission Date: November 13, 2023 Subjective Patient is seen and examined at bedside Left wrist pain is much improved Still has some left wrist swelling Eager to get discharged Denies any chest pain, dyspnea, nausea, vomiting, abdominal pain, diarrhea No other complaints Review of Systems Review of Systems: All systems reviewed & are unremarkable except as noted in Subjective Physical Exam Physical Exam: Physical Exam: Vitals signs as noted above General Appearance:Moderately built and nourished, no apparent distress Head: normocephalic, Atraumatic Eyes: normal inspection, EOMI Neck: supple, Trachea midline Respiratory/Chest: Normal breath sounds, CTA, No accessory muscle use Cardiovascular: S1, S2, No murmur Abdomen/GI:Soft, Non tender, Bowel sounds present Extremities/Musculoskeletal:normal inspection, Left wrist non tender, mild swell ing Neurologic/Psych:AAOX3, grossly no focal neurological deficits Skin: normal color, warm Results & Data Results & Data Vital Signs (Past 12 Hours) Vital Signs Temp Pulse Resp BP Pulse Ox O2 Del Method 11/15/23 07:00 36.9 C 62 16 135/68 92 Room Air Laboratory Results Short CBC 11/15/23 Range/Units 06:38 WBC 11.00 H (4.8-10.8) K/ul Hgb 12.1 L (14.0-18.0) g/dl Hct 35.4 L (42.0-52.0) % Plt Count 209 (130-400) K/uL [facility] 11/15/23 06:38 Sodium 134 L Potassium 3.6 Chloride 101 Carbon Dioxide 25 BUN 29 H Creatinine 1.41 H Glucose 105 H Calcium 8.3 L
--- NOTE | 2023-11-15 10:58 | Discharge Summary ---
Date of Service November 15, 2023 Admission HPI Per Admitting Provider is an 82-year-old male with significant past medical history of 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 with sinus node dysfunction status post pacemaker on anticoagulation, hypertension, hyperlipidemia, stage III chronic kidney disease and also history of gout on allopurinol apparently woke up from sleep this morning with acute pain and swelling involving the left wrist. he took Tylenol without any effect and the pain continued to increase in he came to the emergency room for further evaluation. has an attack of gout before but involving the small joints of the feet. She denies any fever and or chills and no other joint is involved. no any spreading of the redness from the left wrist. no sensory impairment in the fingers and that he could move the fingers. denies any chest pain, palpitation or shortness of breath. no abdominal pain nausea no vomiting. EXTR of the wrist did not show any evidence of osteomyelitis or bone infection or any fracture. Admission Exam Per Admitting Provider Physical Exam: lying in bed comfortably Constitutional: well developed, well nourished and + ill appearing Eyes: PERRL, conjunctivae normal, anicteric sclerae ENMT: external ear and nose normal, oropharynx normal Neck: trachea midline, no thyromegaly Respiratory: no respiratory distress Auscultation: lungs clear to auscultation bilaterally Cardiovascular: Rate/Rhythm: regular rate and regular rhythm; not tachycardic Heart Sounds: normal S1 and normal S2; no murmur Extremities: no edema Gastrointestinal (Abdomen): Inspection/Auscultation: normal bowel sounds; abdomen not distended Percussion/Palpation: abdomen soft; abdomen nontender Musculoskeletal: Extremities: + wrist abnormality ( swelling mainly on the dorsal aspect with warmth, redness and tenderness) Left Neurologic: normal touch/pain/proprioception and moves all extremities; no focal motor deficits Lymphatic: no cervical or axillary lymphadenopathy Principal Diagnosis Acute gout Possible cellulitis left hand Discharge Data Allergies Allergy/AdvReac Type Severity Reaction Status Date / Time Penicillins Allergy Unknown RASH - Verified 11/13/23 14:58 REMOTE HX OF Consultations 11/13/23 13:11 ED Decision to Admit Stat Procedures Performed Laboratory Results WBC 11.00 K/ul (4.8-10.8) H 11/15/23 06:38 RBC 4.03 M/uL (4.70-6.10) L 11/15/23 06:38 Hgb 12.1 g/dl (14.0-18.0) L 11/15/23 06:38 Hct 35.4 % (42.0-52.0) L 11/15/23 06:38 MCV 87.8 fL (80.0-100.0) 11/15/23 06:38 MCH 30.0 pg (25.0-34.0) 11/15/23 06:38 MCHC 34.2 g/dL (32.0-36.0) 11/15/23 06:38 RDW Std Deviation 46.5 fL (36.4-46.3) H 11/15/23 06:38 RDW Coeff of [place] 14.5 % (11.5-14.5) 11/15/23 06:38 Plt Count 209 K/uL (130-400) 11/15/23 06:38 MPV 11.0 fL (9.4-12.4) 11/15/23 06:38 Immature Gran % (Auto) 0.5 % 11/14/23 05:49 Neut % (Auto) 72.6 % 11/14/23 05:49 Lymph % (Auto) 14.4 % 11/14/23 05:49 [place] % (Auto) 11.8 % 11/14/23 05:49 Eos % (Auto) 0.4 % 11/14/23 05:49 Baso % (Auto) 0.3 % 11/14/23 05:49 Neut # (Auto) 9.56 K/uL (1.40-6.50) H 11/14/23 05:49 Lymph # (Auto) 1.89 K/uL (1.20-3.40) 11/14/23 05:49 [place] # (Auto) 1.55 K/uL (0.11-0.59) H 11/14/23 05:49 Eos # (Auto) 0.05 K/uL (0.00-0.50) 11/14/23 05:49 Baso # (Auto) 0.04 K/uL (0.00-0.20) 11/14/23 05:49 Immature Gran # (Auto) 0.07 K/uL (0.01-0.20) 11/14/23 05:49 PT 27.5 Seconds (9.0-12.0) H 11/15/23 06:38 INR 2.8 (0.9-1.1) H 11/15/23 06:38 APTT 43 Seconds (21-31) H 11/13/23 11:07 PTT Ratio 1.6 11/13/23 11:07 Sodium 134 mmol/L (136-145) L 11/15/23 06:38 Potassium 3.6 mmol/L (3.5-5.1) 11/15/23 06:38 Chloride 101 mmol/L (98-107) 11/15/23 06:38 Carbon Dioxide 25 mmol/L (21-32) 11/15/23 06:38 Anion Gap 8 (3-11) 11/15/23 06:38 BUN 29 mg/dl (6-23) H 11/15/23 06:38 Creatinine 1.41 mg/dl (0.6-1.4) H 11/15/23 06:38 Est Cr Clr Drug Dosing 42.7 ml/min 11/15/23 06:38 Est GFR ( Amer) 53.0 ml/min 11/15/23 06:38 Est GFR (Non-Af Amer) 45.7 ml/min 11/15/23 06:38 BUN/Creatinine Ratio 20.6 (10-20) H 11/15/23 06:38 Glucose 105 mg/dl (70-99(Fasting)) H 11/15/23 06:38 Lactate 1.4 mmol/L (0.4-2.0) 11/13/23 13:04 Uric Acid 5.6 mg/dl (2.6-7.2) 11/13/23 11:07 Calcium 8.3 mg/dl (8.6-10.3) L 11/15/23 06:38 Phosphorus 2.7 mg/dl (2.5-4.9) 11/15/23 06:38 Magnesium 1.8 mg/dl (1.7-2.4) 11/15/23 06:38 Total Bilirubin 0.7 mg/dl (0.2-1.0) 11/13/23 11:07 AST 17 U/L (13-39) 11/13/23 11:07 ALT 12 U/L (7-52) 11/13/23 11:07 Alkaline Phosphatase 81 U/L (34-104) 11/13/23 11:07 Total Protein 7.4 gm/dl (6.0-8.3) 11/13/23 11:07 Albumin 4.1 gm/dl (3.4-5.0) 11/13/23 11:07 Globulin 3.3 gm/dl (2.5-4.0) 11/13/23 11:07 Albumin/Globulin Ratio 1.2 (0.9-2) 11/13/23 11:07 Procalcitonin 0.03 ng/ml (0-0.5) 11/13/23 11:07 Impressions Hand X-Ray 11/13/23 10:54 XR hand LT min 3V routine CLINICAL HISTORY: pain, swelling TECHNIQUE: 4 views of the left wrist and 3 views of left hand were obtained. Comparison: None available at the time of this dictation. FINDINGS: There is no evidence of an acute fracture. Osteophyte formation and joint space narrowing is seen. Questionable erosions at the second MTP joint. No soft tissue abnormality is seen. IMPRESSION: Degenerative changes are seen which may include an erosive component. No evidence of acute fracture. ACT 112: Negative or not required by law. Electronically signed by: Josemanuel Maravilla M.D. 11/13/2023 11:46 AM Wrist X-Ray 11/13/23 10:54 XR wrist LT w scaphoid CLINICAL HISTORY: pain, swelling TECHNIQUE: 4 views of the left wrist and 3 views of left hand were obtained. Comparison: None available at the time of this dictation. FINDINGS: There is no evidence of an acute fracture. Osteophyte formation and joint space narrowing is seen. Questionable erosions at the second MTP joint. No soft tissue abnormality is seen. IMPRESSION: Degenerative changes are seen which may include an erosive component. No evidence of acute fracture. ACT 112: Negative or not required by law. Electronically signed by: Josemanuel Maravilla M.D. 11/13/2023 11:40 AM Hospital Course (1) Acute gout: H/O Gout on Allopurinol Possible cellulitis -Wrist X ray:Degenerative changes are seen which may include an erosive component. No evidence of acute fracture. Clinically improved Continue allopurinol Continue colchicine Chlorthalidone discontinues IV Rocephin>> transition to Doxy on discharge Given persistent swelling, will start on prednisone taper course Plan to discharge home today (2) Atrial fibrillation: H/O Atrial fibrillation sinus node dysfunction S/P pacemaker INR 2.8 today Resume Coumadin (3) Sinus node dysfunction: (4) Hypertension: Continue amlodipine, losartan chlorthalidone discontinued secondary to gout (5) CKD (chronic kidney disease): stable Monitor renal function DVT Px Coumadin CODE STATUS: full Disposition Home Total Time Total Time Spent Total Time Spent (In Minutes): 54 minutes Discharge Plan Discharge Items Patient Disposition: Home - Self-Care Reason For Visit: ACUTE GOUT OF LEFT WRIST Discharge Diagnosis: Acute gout Possible cellulitis left hand Activity: Per Instructions section Exercise/Sports: Wait until after follow-up appointment Non-emergency contact: Primary Care Provider Call non-emergency contact if: you have any medication questions, your symptoms worsen, your pain is concerning for you and you have a fever Follow-up/Referrals: Iliana Lund DO [Primary Care Provider] - Diet: Heart Healthy Addtl Attending Provider Instructions: Follow-up with your primary care physician in 1 week -- Your chlorthalidone is discontinued as it can precipitate acute gout. Monitor your blood pressure regularly. Discuss with your physician for further adjustment of your blood pressure medications as needed -- Complete the antibiotic (doxycycline), colchicine and prednisone tapering course as prescribed Prednisone tapering course Start taking prednisone 30 mg daily for 2 days, then take 20 mg daily for 2 days, then take 10 mg daily for 2 days and stop Seek immediate medical attention if your symptoms reoccur or worsen Please take all medications as instructed on discharge list below. Please call if you have any questions or problems. You can reach a [facility] hospitalist on duty at [facility] 24 hours a day by calling [phone] Pending Studies at Discharge: No Stand-Alone Forms: My [facility] [employer], Smoking Cessation Medications and DC Order Prescriptions: New colchicine [Colcrys] 0.6 mg Tablet 0.6 mg PO BID Qty: 3 0RF prednisone 10 mg tablet 10 mg PO DIRECTED Qty: 12 0RF Rx Instructions: Start taking prednisone 30 mg daily for 2 days, then take 20 mg daily for 2 days, then take 10 mg daily for 2 days and stop doxycycline hyclate 100 mg tablet 100 mg PO BID Qty: 10 0RF famotidine [Pepcid AC] 10 mg tablet 10 mg PO HS Qty: 7 0RF Continued multivitamin Tablet 1 tab PO QAM warfarin 2.5 mg Tablet 2.5 mg PO QPM Patient Comments: EVERY DAY 2.5 MG IN THE EVENING, FRIDAY NIGHTS 2 TAB IN THE EVENING Rx Instructions: and will adjust according co[facility] clinic ([facility]) acetaminophen [Tylenol Extra Strength] 500 mg Tablet 500 - 1,000 mg PO DIRECTED PRN (Reason: Pain) amlodipine 10 mg Tablet 10 mg PO QAM losartan 25 mg Tablet 25 mg PO QAM PreserVision AREDS [id number] Tablet 1 tab PO BID allopurinol 100 mg tablet 200 mg PO QAM Discontinued chlorthalidone 25 mg Tablet 25 mg PO QAM Discharge Orders: Discharge Order (Routine); Ordered 11/15/23 Ordered By: Edwin Salmon Admission Data Admit Date/Time: 11/13/23 13:55 Attending Provider: Edwin Salmon Admit Provider: Abel Reed Primary Care Provider: Iliana Lund Other Providers: Abel Reed
== END 2023-11-15 12:37 | disposition home or self-care (01) | DRG 554 ==
LOC: ED 10:19 → SUATTDRO 13:55 → 3N 13:55
DX: N18.30 Chronic kidney disease, stage 3 unspecified; I12.9 Hypertensive chronic kidney disease with stage 1 through stage 4 chronic kidney disease, or unspecified chronic kidney disease; Z79.01 Long term (current) use of anticoagulants; I48.91 Unspecified atrial fibrillation; Z88.0 Allergy status to penicillin; M10.9 Gout, unspecified; Z95.0 Presence of cardiac pacemaker; Z83.3 Family history of diabetes mellitus; L03.114 Cellulitis of left upper limb; Z96.652 Presence of left artificial knee joint